=== PATIENT | male | born 1980 | race Caucasian/White ===

== ENCOUNTER 2017-11-04 18:56 | Emergency (ER) | payer SELFPAY ==
[2017-11-04 19:00] VITALS: BP 129/89; PULSE 70; RESP 17; TEMP 37.2; O2SAT 100; BMI 25.0
--- NOTE | 2017-11-04 19:11 | RAD_ITS ---
STUDY: X-RAY CHEST REASON FOR EXAM: Male, 37 years old. Chest pain x3 days TECHNIQUE: Single AP portable view of the chest. COMPARISON: Prior study of 12/31/2016 FINDINGS: hospital monitor leads are present. The lungs are clear and expanded. There is no demonstrated pleural abnormality. The heart size is normal. Status post sternotomy changes are present. Normal mediastinum and harry. Normal visualized pulmonary arteries. Normal visualized aortic arch and descending thoracic aorta. Normal visualized thoracic spine. Normal visualized ribs, clavicles, and shoulders. There is no demonstrated abnormality of the visualized soft tissue structures of the upper abdomen. RAD/Chest 1 View (Portable) IMPRESSION: Status post sternotomy. No acute cardiopulmonary disease process is seen. Chest findings are stable in the interval. Electronically Signed: Rajeev Pennington MD at 19:45 EDT , Service support ,
--- NOTE | 2017-11-04 19:12 | EKG12_ITS ---
Test Reason : CP Blood Pressure : / mmHG Vent. Rate : 066 BPM Atrial Rate : 066 BPM P-R Int : 146 ms QRS Dur : 062 ms QT Int : 388 ms P-R-T Axes : 063 069 079 degrees QTc Int : 406 ms Normal sinus rhythm Septal infarct , age undetermined Abnormal ECG Confirmed by OMAR CASAS, CHERRI ([id number]), industrial editor KWABENA ZELAYA ([id number]) on 11/06/2017 2:36:10 PM Referred By: CECILIA Confirmed By:CHERRI NELSON MD
[2017-11-04] MEDS: Aspirin 81 MG TAB.CHEW 324 MG PO (19:18)
[2017-11-04 19:21] VITALS: BP 144/90; PULSE 67
[2017-11-04] MEDS: 0.9% Normal Saline 1,000 ML 150 ML IV (19:22)
[2017-11-04 19:27] VITALS: BP 142/73; PULSE 75
[2017-11-04 19:34] VITALS: BP 135/72; PULSE 82
[2017-11-04 19:38] LABS: Absolute Lymphocyte Count 4.31 X10^3/ul (0.83-4.51); Basophil# 0.03 X10^3/uL; Basophil% 0.3 % (0-1); Eosinophils% 1.8 % (0-5); Hematocrit 44.5 % (40-54); Hemoglobin 15.5 g/dl (13.0-16.5); Lymphocyte # 4.31 X10^3/ul (4.0); Lymphocyte % 38.2 % (19-41); Mean Corp Hgb Conc 34.8 g/gl (32-36); Mean Corpuscular Hgb 32.5 pg (27.0-32.0); Mean Corpuscular Volume 93.3 fL (80-94); Mean Platelet Vol. 9.9 fl (6.2-12.0); Monocyte# 0.73 X10^3/uL; Monocyte% 6.5 % (0-10); Neutrophil # 5.99 X10^3/uL (2.7-7.7); Platelet Count 237 K/mm3 (150-450); RBC Distribution Width CV 12.6 % (11.6-14.6); RBC Distribution Width SD 42.7 fl (35.1-43.9); Red Blood Count 4.77 M/mm3 (4.6-6.2); White Blood Count 11.3 K/mm3 (4.4-11.0)
[2017-11-04 19:40] LABS: POSITIVE COUNT NO; POSITIVE DIFFERENTIAL NO; POSITIVE MORPHOLOGY NO
[2017-11-04 19:41] LABS: Anion Gap 5 (5-15); BUN 16 mg/dL (7-18); BUN/Creat Ratio 15.4 RATIO (10-20); Calcium,Total 8.6 mg/dL (8.5-10.1); Chloride 105 mmol/L (98-107); Creatinine, Serum 1.04 mg/dL (0.70-1.30); EST Glomerular Filtration Rate 86 mL/min (>60); Est Glom Filt Rate - Afr Amer 104 mL/min (>60); Estimated Creatinine Clearance 86.24 ml/min; Glucose 84 mg/dL (74-106); Potassium 4.2 mmol/L (3.5-5.1); Sodium Level 138 mmol/L (136-145)
[2017-11-04] MEDS: Morphine 4 MG/ML Syringe IV (19:41)
[2017-11-04 20:07] VITALS: BP 113/76; PULSE 69; RESP 16; O2SAT 98
[2017-11-04 20:56] LABS: D-Dimer Quantitative (DVT/PE) < 0.27 FEU/ug/m (0.27-0.49)
--- NOTE | 2017-11-04 21:11 | PCM.HP.STD ---
Problem List (1) Chest pain Status: Acute Qualifiers: Chest pain type: unspecified Qualified Code(s): R07.9 - Chest pain, unspecified (2) HTN (hypertension) Status: Chronic Qualifiers: Hypertension type: essential hypertension Qualified Code(s): I10 - Essential (primary) hypertension (3) HLD (hyperlipidemia) Status: Chronic Qualifiers: Hyperlipidemia type: unspecified Qualified Code(s): E78.5 - Hyperlipidemia, unspecified (4) Polysubstance abuse Status: Chronic Comment: drug screen 08/08 + for benzo's, Meth and cocaine. 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 transplanted heart: unspecified whether [place] or transplanted heart Associated angina: angina presence unspecified Qualified Code(s): I25.10 - Atherosclerotic heart disease of [place] coronary artery without angina pectoris (8) Non-STEMI (non-ST elevated myocardial infarction) Status: Chronic History of Present Illness Date of Admission: 11/04/17 Chief Complaint: Chest pain The patient is a 37 y/o M w/ PMHx: Tobacco use, History of Polysubstance abuse, HTN, HLD, CAD s/p CABG, Hx NSTEMI w/ most recent cardiac catheterization 08/10/2016 noted to demonstrate no obstructive lesions w/ + UDS cocaine at that time and eventual resumption medications who presents to the [facility] ED on 11/04/17 with history of In the ED work-up included T 99, heart rate 67, BP 144/90, respiratory rate 17, 100% room air, CBC with WBC 11.3, hemoglobin 15.5, platelet 237 without shift, d-dimer less than 0.27, BMP unremarkable, troponin less than 0.015, EKG with____, CXR w/ no acute cardiopulmonary process noted with stable chest findings status post sternotomy. The ED patient ministered aspirin, morphine, nitroglycerin, normal saline. Hospitalist addition of urine drug screen request given prior history of polysubstance abuse. CAD: s/p NSTEMI, CABG, will restart home regimen asa, statin (atorvastatin 40 mg), BB (metoprolol succ 25 mg daily). Hypertension: Restart home regimen lisinopril (2.5 mg daily), metoprolol succ (25 mg po daily) if UDS with + cocaine and if notable then restart in 24-48 hours. Hyperlipidemia: We will restart home statin regimen, FLP in AM. Tobacco Abuse: Encouraged cessation, inpatient consultation per RT, NR if desired. Hx Polysubstance abuse: Noted prior usage including cocaine and methamphetamine, 08/2016 evaluation for chest pain w/ + UDS at that time, UDS requested. DVT Prophylaxis: SCDs, lovenox. Past Medical History Past Medical History (Chronic Problems): Chronic Problems HTN (hypertension) (Chronic) HLD (hyperlipidemia) (Chronic) Polysubstance abuse (Chronic) drug screen 08/08 + for benzo's, Meth and cocaine. 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 Tobacco Use: Cigarettes Alcohol: Occasional Drugs: - - Denies any recent heroin use but has used in the past, Marijuana - *Family History Maternal History Items: No pertinent history Paternal History Items: No pertinent history Patient Problems: Active and Suspected Problems Chest pain (Acute) - Physical Exam Vital Signs Temp Pulse Resp BP Pulse Ox 99 F 69 16 113/76 98 11/04/17 19:00 11/04/17 20:07 11/04/17 20:07 11/04/17 20:07 11/04/17 20:07 Oxygen Flow Rate (L/min) 2 Oxygen Delivery Method Nasal Cannula Weight: 150 lb 2.157 oz Body Mass Index (BMI) 25.0 Laboratory Tests Past 24 Hrs 11/04/17 11/04/17 11/04/17 19:02 19:02 19:02 WBC 11.3 H RBC 4.77 Hgb 15.5 Hct 44.5 MCV 93.3 MCH 32.5 H MCHC 34.8 RDW 12.6 RDW Differential 42.7 Plt Count 237 MPV 9.9 Immature Gran % (Auto) 0.200 Neut % (Auto) 53.0 Lymph % (Auto) 38.2 [place] % (Auto) 6.5 Eos % (Auto) 1.8 Baso % (Auto) 0.3 Absolute Neuts (auto) 6.0 Absolute Lymphs (auto) 4.31 Total Counted Not Reportable D-Dimer Quant (PE/DVT) < 0.27 L Sodium 138 Potassium 4.2 Chloride 105 Carbon Dioxide 28.0 Anion Gap 5 BUN 16 Creatinine 1.04 Estim Creat Clear Calc 86.24 Est GFR (MDRD) Af Amer 104 Est GFR (MDRD) Non-Af 86 BUN/Creatinine Ratio 15.4 Glucose 84 Calcium 8.6 Troponin I < 0.015 Assessment/Plan All Active Problems Chest pain (Acute) Abnormal LFTs (Acute)
--- NOTE | 2017-11-04 21:13 | ED.VISSUMM ---
- ER Visit Summary Date of Service: 11/04/17 Chief Complaint: [Chest pain] History of Present Illness: The patient is a 37 M [the emergency department with complaint of chest pain times 3 days. Patient states the pain initially was intermittent but now continuous over the last 24 hours. Patient rates it currently as 7 or 8 out of 10. Patient describes the pain is in the center of his chest kind of dull and achy radiating into his left shoulder at times. Patient also states that radiates into the right arm at times. Patient has had similar pain in the past and he has had a one-vessel bypass surgery in 2008. Patient also states that last year he had a small heart attack. 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 Cranial nerves II through XII grossly intact. TMs clear. Mucous membranes moist. No adenopathy. Cardiovascular-regular rate and rhythm without murmur or ectopy Lungs-clear to auscultation, chest wall stable without crepitus or subcu emphysema Abdomen-normoactive bowel sounds, soft, nontender, no rebound or rigidity, no peritoneal signs. Extremities-intact ?4, normal range of motion, normal pulses, atraumatic] Test Results: EKG obtained on arrival showed a sinus rhythm with a ventricular rate of 68 bpm with no acute ST segment changes. CBC with differential was normal. Chemistries were normal. Troponin was less than 0.015. D-dimer was normal less than 0.27. Chest x-ray was normal. [] Emergency Department Course and Treatment: [Patient did receive nitro in the emergency department as well as aspirin. Patient did not have any relief with nitro and therefore was given 4 mg of morphine IV.] Treatment Plan: [I recommended admission for further workup and evaluation of his chest pains especially given his history. Patient however is refusing and wishes to sign out AGAINST MEDICAL ADVICE. Patient understands my concern that I do not have a clear etiology of his chest pain and given his history wanted to do more testing such as possibly stress testing and repeat cardiac enzymes. Patient understands that one set of heart enzymes and an EKG in the emergency department does not rule out coronary artery disease as the etiology of his pain. Since is with him she also understands and she told him to do whatever he wants.] Disposition: [Signed out AGAINST MEDICAL ADVICE] Impression: [Chest pain-rule out acute coronary syndrome] This note was generated with Prezto dictation software. It may contain incorrect words, spelling, and punctuation that were not noted in review of the chart prior to signing ED Disposition - Plan for ED Patient: Chief Complaint: Chest Pain Referrals: Natalia Xiao MD [Primary Care Provider] -
--- NOTE | 2017-11-04 21:16 | ED.DCSUM_ITS ---
- ER Visit Summary Date of Service: 11/04/17 Chief Complaint: [Chest pain] History of Present Illness: The patient is a 37 M [the emergency department with complaint of chest pain times 3 days. Patient states the pain initially was intermittent but now continuous over the last 24 hours. Patient rates it c urrently as 7 or 8 out of 10. Patient describes the pain is in the center of his chest kind of dull and achy radiating into his left shoulder at times. Patient also states that radiates into the right arm at times. Patient has had similar pain in the past and he has had a one-vessel bypass surgery in 2008. Patient also states that last year he had a small heart attack. 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 Saenz.] Physical Examination: [HEENT-PERRLA, EOMI. Cranial nerves II through XII grossly intact. TMs clear. Mucous membranes moist. No adenopathy. Cardiovascular-regular rate and rhythm without murmur or ectopy Lungs-clear to auscultation, chest wall stable without crepitus or subcu emphysema Abdomen-normoactive bowel sounds, soft, nontender, no rebound or rigidity, no peritoneal signs. Extremities-intact ?4, normal range of motion, normal pulses, atraumatic] Test Results: EKG obtained on arrival showed a sinus rhythm with a ventricular rate of 68 bpm with no acute ST segment changes. CBC with differential was normal. Chemistries were normal. Troponin was less than 0.015. D-dimer was normal less than 0.27. Chest x-ray was normal. [] Emergency Department Course and Treatment: [Patient did receive nitro in the emergency department as well as aspirin. Patient did not have any relief with nitro and therefore was given 4 mg of morphine IV.] Treatment Plan: [I recommended admission for further workup and evaluation of his chest pains especially given his history. Patient however is refusing and wishes to sign out AGAINST MEDICAL ADVICE. Patient understands my concern that I do not have a clear etiology of his chest pain and given his history wanted to do more testing such as possibly stress testing and repeat cardiac enzymes. Patient understands that one set of heart enzymes and an EKG in the emergency department does not rule out coronary artery disease as the etiology of his pain. Since is with him she also understands and she told him to do whatever he wants.] Disposition: [Signed out AGAINST MEDICAL ADVICE] Impression: [Chest pain-rule out acute coronary syndrome] This note was generated with Vind[employer] dictation software. It may contain incorrect words, spelling, and punctuation that were not noted in review of the chart prior to signing ED Disposition - Plan for ED Patient: Chief Complaint: Chest Pain Referrals: Natalia Xiao MD [Primary Care Provider] -
--- NOTE | 2017-11-04 21:16 | ED.DEP ---
ED Disposition - Plan for ED Patient: Chief Complaint: Chest Pain Referrals: Natalia Xiao MD [Primary Care Provider] - Otf Saenz MD [STAFF PHYSICIAN] - As soon as possible Additional Instructions: The cause of your pain is unclear. Return for any worsening symptoms.
--- NOTE | 2017-11-04 21:19 | HP.PCM_ITS ---
Problem List (1) Chest pain Status: Acute Qualifiers: Chest pain type: unspecified Qualified Code(s): R07.9 - Chest pain, unspecified (2) HTN (hypertension) Status: Chronic Qualifiers: Hypertension type: essential hypertension Qualified Code(s): I10 - Essential (primary) hypertension (3) HLD (hyperlipidemia) Status: Chronic Qualifiers: Hyperlipidemia type: unspecified Qualified Code(s): E78.5 - Hyperlipidemia, unspecified (4) Polysubstance abuse Status: Chronic Comment: drug screen 08/08 + for benzo's, Meth and cocaine. 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 transplanted heart: unspecified whether [place] or transplanted heart Associated angina: angina presence unspecified Qualified Code(s): I25.10 - Atherosclerotic heart disease of [place] coronary artery without angina pectoris (8) Non-STEMI (non-ST elevated myocardial infarction) Status: Chronic History of Present Illness Date of Admission: 11/04/17 Chief Complaint: Chest pain The patient is a 37 y/o M w/ PMHx: Tobacco use, History of Polysubstance abuse, HTN, HLD, CAD s/p CABG, Hx NSTEMI w/ most recent cardiac catheterization 08/10/2016 noted to demonstrate no obstructive lesions w/ + UDS cocaine at that time and eventual resumption medications who presents to the [facility] ED on 11/04/17 with history of In the ED work-up included T 99, heart rate 67, BP 144/90, respiratory rate 17, 100% room air, CBC with WBC 11.3, hemoglobin 15.5, platelet 237 without shift, d-dimer less than 0.27, BMP unremarkable, troponin less than 0.015, EKG with____, CXR w/ no acute cardiopulmonary process noted with stable chest findings status post sternotomy. The ED patient ministered aspirin, morphine, nitroglycerin, normal saline. Hospitalist addition of urine drug screen request given prior history of polysubstance abuse. CAD: s/p NSTEMI, CABG, will restart home regimen asa, statin (atorvastatin 40 mg), BB (metoprolol succ 25 mg daily). Hypertension: Restart home regimen lisinopril (2.5 mg daily), metoprolol succ (25 mg po daily) if UDS with + cocaine and if notable then restart in 24-48 hours. Hyperlipidemia: We will restart home statin regimen, FLP in AM. Tobacco Abuse: Encouraged cessation, inpatient consultation per RT, NR if desired. Hx Polysubstance abuse: Noted prior usage including cocaine and methamphetamine, 08/2016 evaluation for chest pain w/ + UDS at that time, UDS requested. DVT Prophylaxis: SCDs, lovenox. Past Medical History Past Medical History (Chronic Problems): Chronic Problems HTN (hypertension) (Chronic) HLD (hyperlipidemia) (Chronic) Polysubstance abuse (Chronic) drug screen 08/08 + for benzo's, Meth and cocaine. 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 Tobacco Use: Cigarettes Alcohol: Occasional Drugs: - - Denies any recent heroin use but has used in the past, Marijuana - *Family History Maternal History Items: No pertinent history Paternal History Items: No pertinent history Patient Problems: Active and Suspected Problems Chest pain (Acute) - Physical Exam Vital Signs Temp Pulse Resp BP Pulse Ox 99 F 69 16 113/76 98 11/04/17 19:00 11/04/17 20:07 11/04/17 20:07 11/04/17 20:07 11/04/17 20:07 Oxygen Flow Rate (L/min) 2 Oxygen Delivery Method Nasal Cannula Weight: 150 lb 2.157 oz Body Mass Index (BMI) 25.0 Laboratory Tests Past 24 Hrs 11/04/17 11/04/17 11/04/17 19:02 19:02 19:02 WBC 11.3 H RBC 4.77 Hgb 15.5 Hct 44.5 MCV 93.3 MCH 32.5 H MCHC 34.8 RDW 12.6 RDW Differential 42.7 Plt Count 237 MPV 9.9 Immature Gran % (Auto) 0.200 Neut % (Auto) 53.0 Lymph % (Auto) 38.2 [place] % (Auto) 6.5 Eos % (Auto) 1.8 Baso % (Auto) 0.3 Absolute Neuts (auto) 6.0 Absolute Lymphs (auto) 4.31 Total Counted Not Reportable D-Dimer Quant (PE/DVT) < 0.27 L Sodium 138 Potassium 4.2 Chloride 105 Carbon Dioxide 28.0 Anion Gap 5 BUN 16 Creatinine 1.04 Estim Creat Clear Calc 86.24 Est GFR (MDRD) Af Amer 104 Est GFR (MDRD) Non-Af 86 BUN/Creatinine Ratio 15.4 Glucose 84 Calcium 8.6 Troponin I < 0.015 Assessment/Plan All Active Problems Chest pain (Acute) Abnormal LFTs (Acute)
--- NOTE | 2017-11-04 21:30 | ED.RN ---
PT SIGNING OUT AGAINST MEDICAL ADVICE. PT STATES HE IS FULLY AWARE OF RISKS WITH LEAVING INCLUDING . PT AWARE HE CAN COME BACK AT ANY TIME FOR ANY CONCERNS.
== END 2017-11-04 21:29 | disposition left against medical advice (07) ==
PROVIDERS: Emergency Provider Emergency Medicine; Family Provider Internal Medicine; PCP Internal Medicine
DX: R07.9 Chest pain, unspecified (principal); I25.10 Atherosclerotic heart disease of native coronary artery without angina pectoris; I25.2 Old myocardial infarction; I10 Essential (primary) hypertension; F12.90 Cannabis use, unspecified, uncomplicated; Z95.1 Presence of aortocoronary bypass graft; Z79.899 Other long term (current) drug therapy; Z72.0 Tobacco use; Z53.21 Procedure and treatment not carried out due to patient leaving prior to being seen by health care provider
CPT/HCPCS: 71045; 80048; 84484; 85025; 85379; 93005; 96361; 96374; 99283; J7030; A4216

== ENCOUNTER 2018-02-08 13:37 | Emergency (ER) | payer MEDICAID, SELFPAY ==
[2018-02-08 13:38] VITALS: BP 125/82; PULSE 82; RESP 17; TEMP 36.4; O2SAT 99; BMI 28.0
--- NOTE | 2018-02-08 13:47 | RAD_ITS ---
STUDY: X-RAY CHEST REASON FOR EXAM: Male, 37 years old. Chest pain. TECHNIQUE: Single AP portable view of the chest. COMPARISON: Comparison is made with prior study dated November 04, 2017. FINDINGS: EKG electrodes are seen. The lungs are clear and expanded. There is no demonstrated pleural abnormality. Sternal cerclage wires are present from a prior sternotomy. Normal mediastinum and harry. Normal visualized pulmonary arteries. Normal visualized aortic arch and descending thoracic aorta. Normal visualized thoracic spine. Normal visualized ribs, clavicles, and shoulders. There is no demonstrated abnormality of the visualized soft tissue structures of the upper abdomen. RAD/Chest 1 View (Portable) IMPRESSION: Normal x-ray examination of the chest. Prior midline sternotomy. Electronically Signed: Andrez Shipley MD at 14:17 EST Tel [phone], Service support ,
--- NOTE | 2018-02-08 13:47 | EKG12_ITS ---
Test Reason : CP Blood Pressure : / mmHG Vent. Rate : 078 BPM Atrial Rate : 078 BPM P-R Int : 138 ms QRS Dur : 072 ms QT Int : 368 ms P-R-T Axes : 066 078 061 degrees QTc Int : 419 ms Normal sinus rhythm Normal ECG Confirmed by OMAR CASAS, CHERRI ([id number]), fan mail editor KWABENA ZELAYA ([id number]) on 02/12/2018 8:47:20 AM Referred By: CHRISSIE Confirmed By:CHERRI NELSON MD
[2018-02-08 13:48] VITALS: O2SAT 100
[2018-02-08] MEDS: Ondansetron 4 MG/2 ML Vial IV (13:54)
[2018-02-08] MEDS: Morphine 4 MG/ML Syringe IV (13:54)
[2018-02-08] MEDS: Aspirin 81 MG TAB.CHEW 324 MG PO (13:54)
[2018-02-08] MEDS: 0.9% Normal Saline 1,000 ML 150 ML IV (13:54)
[2018-02-08 13:59] LABS: Absolute Lymphocyte Count 2.91 X10^3/ul (0.83-4.51); Absolute Neutrophil Count 5.6 X10^3/uL (2.0-7.7); Basophil# 0.03 X10^3/uL; Basophil% 0.3 % (0-1); Eosinophil# 0.08 X10^3/uL; Eosinophils% 0.9 % (0-5); Hemoglobin 16.7 g/dl (13.0-16.5); Lymphocyte # 2.91 X10^3/ul (4.0); Lymphocyte % 32.5 % (19-41); Mean Corp Hgb Conc 34.8 g/gl (32-36); Mean Corpuscular Hgb 31.8 pg (27.0-32.0); Mean Corpuscular Volume 91.4 fL (80-94); Mean Platelet Vol. 9.7 fl (6.2-12.0); Monocyte# 0.35 X10^3/uL; Monocyte% 3.9 % (0-10); Neutrophil # 5.56 X10^3/uL (2.7-7.7); Neutrophil % 62.2 % (47-70); POSITIVE COUNT NO; POSITIVE DIFFERENTIAL NO; POSITIVE MORPHOLOGY NO; Platelet Count 246 K/mm3 (150-450); RBC Distribution Width CV 12.6 % (11.6-14.6); RBC Distribution Width SD 42.2 fl (35.1-43.9); Red Blood Count 5.25 M/mm3 (4.6-6.2)
[2018-02-08 14:09] LABS: Anion Gap 11 (5-15); BUN 11 mg/dL (7-18); BUN/Creat Ratio 11.1 RATIO (10-20); Calcium,Total 8.8 mg/dL (8.5-10.1); Chloride 102 mmol/L (98-107); Creatinine, Serum 0.99 mg/dL (0.70-1.30); EST Glomerular Filtration Rate 91 mL/min (>60); Est Glom Filt Rate - Afr Amer 110 mL/min (>60); Estimated Creatinine Clearance 90.59 ml/min; Glucose 134 mg/dL (74-106); Potassium 3.8 mmol/L (3.5-5.1); Sodium Level 138 mmol/L (136-145)
[2018-02-08] MEDS: Ketorolac 30 MG/ML Syringe IV (14:23)
[2018-02-08 14:25] VITALS: BP 137/90; PULSE 73; RESP 16; O2SAT 98
[2018-02-08 14:44] VITALS: BP 129/88; PULSE 77
[2018-02-08 15:19] VITALS: BP 120/77; PULSE 72; RESP 16; O2SAT 99
--- NOTE | 2018-02-08 15:30 | ED.DCSUM_ITS ---
- ER Visit Summary Date of Service: 02/08/18 Chief Complaint: Chest pain History of Present Illness: The patient is a [address] Saenz and Dr. Cervantes. He reports that 3 hours ago he had the onset of left-sided chest pain while cleaning up [employer] decorations. He reports this was light activity. Sick continuous sharp pain that waxes and wanes. Is 10 at 10 at worst and 9 out of 10 currently. Is worsened by movement of his left arm or torso. Is relieved by remaining still. He reports that he took 2 nitroglycerin with slight relief. States he has had nausea, but no vomiting. Has had dyspnea and diaphoresis with this. Patient reports that he has a history of a 1 vessel CABG in 2008. Last heart catheterization was in 2016. He denies any chest pain or change in dyspnea exertion in the past month. Physical Examination: Vitals: Stable. Afebrile. General: Well-nourished and well-developed. Head: Normocephalic atraumatic. Neck: Supple, no lymphadenopathy. No JVD. Nontender. Cardiovascular: Regular rate and rhythm. No murmurs. Respiratory: No respiratory distress. Clear to auscultation bilaterally. Moderate tenderness palpation over the left side of his chest that does reproduce his pain. Abdominal: Soft, nontender, nondistended, normal bowel sounds. No guarding, rebound, or peritoneal signs. Back: Nontender. Extremities: Moderate tenderness palpation over the left AC joint with an obvious separation. Neurovascularly intact distally. Skin: Normal color, no rash. Neurologic: Alert and oriented ?3. Cranial nerves II through XII are intact. Normal strength and sensation. Psych: Normal affect. Test Results: EKG is sinus at 78 and unchanged from October 2017. Troponin is negative. Chem-7 more for glucose 134. CBC is more for hemoglobin 16.7. Chest x-ray shows no acute disease and sternotomy wires. He does have a complete left AC joint separation. Emergency Department Course and Treatment: Patient was initially treated with a dose of morphine IV. He continued to complain of pain was given Toradol IV. I had a prolonged discussion with him about his left shoulder. He reports that this was from an accident 4 years ago. He does question whether this may be the source of his pain. Treatment Plan: Patient's pain was greater than 3 hours prior to arrival to the emergency department. He is refused to stay for a second troponin. Clinically I think that this is musculoskeletal pain. As he is not staying for the second troponin he will be signed out AGAINST MEDICAL ADVICE. He will be discharged instructions to follow-up with his primary care physician as soon as possible. He has also asked for referral to orthopedic surgeon and is given the name of Dr. Dontrell Barr is data control clerk supervisor. He will be placed on naproxen at home. He is asked for a refill of his nitroglycerin. This was prescribed as well. Disposition: Left AGAINST MEDICAL ADVICE. Impression: 1. Atypical chest pain. 2. Left AC joint separation, chronic. 3. Left AGAINST MEDICAL ADVICE. This note was generated with LIA dictation software. It may contain incorrect words, spelling, and punctuation that were not noted in review of the chart prior to signing ED Disposition - Plan for ED Patient: Disposition: Home or Assisted Living Chief Complaint: Chest Pain Instructions: ED Chest Pain Atypical Unkn Cause Prescriptions: Naproxen [Naprosyn] 500 mg PO BID PRN #20 tablet Nitroglycerin [Nitrostat] 0.4 mg SL PRN PRN #30 tab.subl PRN Reason: Cardiac/Chest Pain Referrals: Otf Saenz MD [STAFF PHYSICIAN] - As soon as possible Natalia Xiao MD [Primary Care Provider] - As soon as possible Dontrell Barr MD [STAFF PHYSICIAN] - 1-2 Weeks
[2018-02-08 15:42] VITALS: BP 120/77; PULSE 65; RESP 15; O2SAT 97
== END 2018-02-08 15:43 | disposition home or self-care (01) ==
PROVIDERS: Emergency Provider Emergency Medicine; Family Provider Internal Medicine; PCP Internal Medicine
DX: R07.89 Other chest pain (principal); M24.412 Recurrent dislocation, left shoulder; Z53.21 Procedure and treatment not carried out due to patient leaving prior to being seen by health care provider; I25.10 Atherosclerotic heart disease of native coronary artery without angina pectoris; I10 Essential (primary) hypertension; J44.9 Chronic obstructive pulmonary disease, unspecified; Z95.1 Presence of aortocoronary bypass graft; F14.11 Cocaine abuse, in remission; F15.21 Other stimulant dependence, in remission; Z72.0 Tobacco use
CPT/HCPCS: 71045; 80048; 84484; 85025; 93005; 96361; 96374; 96375; 99285; J7030; A4216; J2405

== ENCOUNTER 2018-09-24 08:57 | Emergency (ER) | payer MEDICAID, SELFPAY ==
[2018-09-24 08:58] VITALS: BP 127/72; PULSE 85; RESP 17; TEMP 36.1; O2SAT 98; BMI 30.4
--- NOTE | 2018-09-24 09:12 | US_ITS ---
STUDY: SCROTUM ULTRASOUND REASON FOR EXAM: Male, 38 years old. Left-sided pain TECHNIQUE: Ultrasound evaluation of the scrotum was performed with color Doppler and static christianson-scale imaging. COMPARISON: None. FINDINGS: RIGHT TESTICLE INTRATESTICULAR: There is a normal size of the right testicle. The right testicle measures 4.3 x 2.4 x 1.8 cm. There is a homogenous echotexture. There is normal arterial and normal venous vascularity. There is no demonstrated right testicular mass or cyst. EXTRATESTICULAR: The epididymis is normal in size. The epididymis head measures 1.0 cm. There is normal vascularity of the epididymis. There is no demonstrated epididymal cystic structure. There is no demonstrated hydrocele. There is no demonstrated varicocele. There is no demonstrated extratesticular mass or cyst. LEFT TESTICLE INTRATESTICULAR: There is a normal size of the left testicle. The left testicle measures 3.8 x 2.6 x 2.2 cm. There is a homogenous echotexture. There is normal arterial and normal venous vascularity. There is no demonstrated left testicular mass or cyst. There is appendix testes noted measuring 3 x 4 x 4 mm. EXTRATESTICULAR: The epididymis is normal in size. The epididymis head measures 1.6 cm. There is normal vascularity of the epididymis. There is no demonstrated epididymal cystic structure. There is a small hydrocele. There are prominent extratesticular veins consistent with a varicocele. There is no demonstrated extratesticular mass or cyst. US/Testicular with Arterial Flow IMPRESSION: Normal bilateral testicles, no sonographic evidence of suspicious solid mass or torsion. Small left hydrocele and varicocele Left appendix teste Electronically Signed: Vicente Castaneda MD at 10:42 EDT , Service support ,
--- NOTE | 2018-09-24 09:13 | ED.VISSUMM ---
- ER Visit Summary Date of Service: 09/24/18 Chief Complaint: Left testicular pain History of Present Illness: The patient is a 38 M who presents with left testicular pain that began last night. Patient states the pain began rather suddenly. Patient describes pain as sharp, throbbing, and stabbing. Patient states the pain is localized to the left testicle and left inguinal area. Patient states the pain is worse with movement and ambulation. Patient states the pain improves with rest. Patient denies any dysuria or hematuria. Patient denies any nausea or vomiting. Patient states he was doing some lifting yesterday and is concerned over possible hernia. Patient also reports that he had a history of an infection in his testicle in the past. Physical Examination: Vital signs are stable. Patient is afebrile. Patient is in no acute distress. Oral mucosa is pink and moist. Neck is supple. Trachea is midline. There is no JVD noted. Heart was regular rate and rhythm. Lungs are clear and equal bilateral. Abdomen is soft. Bowel sounds are normal. There is no tenderness. There is no guarding noted. exam reveals tenderness over the left testicle and left inguinal canal. There are no masses palpated. Testicle has a vertical lie with the epididymis posterior. Skin is warm dry. Cranial nerves II through XII are intact. There are no focal motor or sensory deficits noted. Test Results: CBC showed slight leukocytosis of 12.3. Basic metabolic profile was essentially within normal limits. Urinalysis was normal. Testicular ultrasound was obtained. There is no evidence of torsion. There is a small left hydrocele and varicocele. Patient was still complaining of pain. CT scan of the abdomen and pelvis was then obtained. There is no acute intra-abdominal process noted. Emergency Department Course and Treatment: Patient was given IV fluids and morphine here. Patient was advised to have his lab, ultrasound, and CT results. Patient was instructed to wear tighter fitting underwear for the next few days. Patient was in a prescription for Naprosyn. Patient was instructed to follow-up with his primary care physician in 5 to 7 days. Patient understood and was agreeable with the plan. All questions were answered. Disposition: Discharge home Impression: 1. Left inguinal pain This note was generated with [employer] dictation software. It may contain incorrect words, spelling, and punctuation that were not noted in review of the chart prior to signing ED Disposition - Plan for ED Patient: Disposition: Home or Assisted Living Diagnosis: Left inguinal pain Instructions: HYDROCELE, Type Not Specified Prescriptions: Naproxen [Naprosyn] 500 mg PO BID PRN #20 tab Prescription Printed Referrals: Natalia Xiao MD [Primary Care Provider] - 3-5 Days
[2018-09-24 09:28] LABS: Absolute Lymphocyte Count 2.64 X10^3/uL (0.83-4.51); Absolute Neutrophil Count 8.4 X10^3/uL (2.0-7.7); Basophil# 0.05 X10^3/uL; Basophil% 0.4 % (0-1); Eosinophil# 0.15 X10^3/uL; Eosinophils% 1.2 % (0-5); Hematocrit 45.1 % (40-54); Hemoglobin 15.8 g/dL (13.0-16.5); Lymphocyte # 2.64 X10^3/ul (4.0); Lymphocyte % 21.4 % (19-41); Mean Corpuscular Volume 91.5 fL (80-94); Mean Platelet Vol. 9.5 fl (6.2-12.0); Monocyte# 0.97 X10^3/uL; Monocyte% 7.9 % (0-10); NRBC Flagged by Analyzer 0 % (0-5); Neutrophil # 8.42 X10^3/uL (2.7-7.7); Neutrophil % 68.4 % (47-70); Platelet Count 232 K/mm3 (150-450); RBC Distribution Width CV 12.1 % (11.6-14.6); RBC Distribution Width SD 40.7 fl (35.1-43.9); Red Blood Count 4.93 M/mm3 (4.6-6.2); White Blood Count 12.3 K/mm3 (4.4-11.0)
[2018-09-24 09:39] LABS: Anion Gap 3 (5-15); BUN 12 mg/dL (7-18); BUN/Creat Ratio 11.9 RATIO (10-20); Calcium,Total 8.6 mg/dL (8.5-10.1); Chloride 105 mmol/L (98-107); Creatinine, Serum 1.01 mg/dL (0.70-1.30); EST Glomerular Filtration Rate 89 mL/min (>60); Est Glom Filt Rate - Afr Amer 107 mL/min (>60); Estimated Creatinine Clearance 87.95 ml/min; Glucose 109 mg/dL (74-106); Potassium 3.9 mmol/L (3.5-5.1); Sodium Level 136 mmol/L (136-145)
[2018-09-24] MEDS: Morphine 4 MG/ML Syringe IV ×2 (09:42→10:32)
[2018-09-24] MEDS: 0.9% Normal Saline 1,000 ML 1000 ML IV (09:43)
[2018-09-24 10:29] LABS: Bacteria 0 SEEN /hpf (None Seen); Mucous, Urine 0 SEEN /hpf (<or=2+); Red Blood Cells-Urine 0 SEEN /hpf (0-5); White Blood Cells 0 SEEN /hpf (0-5)
[2018-09-24 10:41] LABS: Color, Urine Yellow (Yellow); Glucose, Dipstick Normal (Normal); Ketone-Dipstick Negative (Negative); Leukocyte Esterase-Dipstick Negative /ul (Negative); Nitrite-Dipstick Negative (Negative); Occult Blood-Urine Negative /ul (Negative); Protein-Dipstick Negative (Negative); Urine Bilirubin Dipstick Negative (Negative); Urine Clarity Sl. Cloudy (Clear); Urine Urobilinogen Normal (Normal); Urine pH 6.5 (5.0 - 8.0)
[2018-09-24 10:49] LABS: Squamous Epithelial Cells - UA 0-5 SEEN /hpf (0-5)
--- NOTE | 2018-09-24 11:23 | CT_ITS ---
STUDY: CT ABDOMEN AND PELVIS WITHOUT CONTRAST REASON FOR EXAM: Male, 38 years old. Diffuse abdominal pain, nausea RADIATION DOSAGE (If Supplied By Facility): CTDIvol = ( 7.17 ) mGy, DLP = ( 415.54 ) mGycm TECHNIQUE: Transaxial images were obtained from the dome of the diaphragm to the symphysis pubis without oral contrast, and without intravenous contrast. Sagittal and coronal images were reconstructed. Individualized dose optimization techniques were used for this CT. COMPARISON: None. FINDINGS: The visualized lung bases are unremarkable. The visualized portions of the heart are within normal limits. Normal liver. Normal gallbladder and extrahepatic biliary system. Normal spleen. Normal pancreas. Normal bilateral adrenal glands. Normal right kidney. Normal left kidney. Normal visualized stomach. Normal small intestine. Retained stool noted in the colon. The appendix is visualized and appears normal. Appendix best seen on coronal recon images 36 through 39 Normal abdominal aorta. Normal inferior vena cava. Normal retroperitoneum. Normal urinary bladder. Normal abdominal wall. Normal osseous structures. CT/Abdomen/Pelvis without Cont IMPRESSION: No suspicious solid organ abnormality No CT evidence of an acute inflammatory process, normal appendix visualized. No free intraperitoneal fluid, air, or suspicious adenopathy Electronically Signed: Vicente Castaneda MD at 11:57 EDT , Service support ,
[2018-09-24 12:57] VITALS: BP 136/91; PULSE 72; RESP 17; O2SAT 96
--- NOTE | 2018-09-24 12:58 | ED.RN ---
IV DC'ED, CATHETER INTACT, SMALL GAUZE DRESSING PLACED. DISCHARGE INSTRUCTIONS GIVEN TO AND REVIEWED WITH PATIENT, PATIENT DENIES QUESTIONS OR CONCERNS AND VOICES UNDERSTANDING OF DISCHARGE INSTRUCTIONS. PT AMBULATES OUT OF ROOM WITHOUT DIFFICULTY.
== END 2018-09-24 12:58 | disposition home or self-care (01) ==
PROVIDERS: Emergency Provider Emergency Medicine; Family Provider Internal Medicine; PCP Internal Medicine
DX: N43.3 Hydrocele, unspecified (principal); I86.1 Scrotal varices; R10.32 Left lower quadrant pain; Z72.0 Tobacco use
CPT/HCPCS: 74176; 76870; 80048; 81001; 85025; 93976; 96361; 96374; 96376; 99283; J7030

== ENCOUNTER 2018-09-26 11:18 | Emergency (ER) | payer MEDICAID, SELFPAY ==
[2018-09-26 11:19] VITALS: BP 130/108; PULSE 89; RESP 18; TEMP 36.2; O2SAT 99; BMI 28.4
--- NOTE | 2018-09-26 11:42 | US_ITS ---
STUDY: SCROTUM ULTRASOUND REASON FOR EXAM: Male, 38 years old. Testicular pain, left, swelling and redness TECHNIQUE: Ultrasound evaluation of the scrotum was performed with color Doppler and static christianson-scale imaging. COMPARISON: None. FINDINGS: RIGHT TESTICLE Right testis 43 x 23 x 22 mm, homogeneous and normal echotexture, normal vascularity. Right epididymal head 9 x 12 x 6 mm, minimal hydrocele, normal epididymal echotexture and vascularity, no varicocele. LEFT TESTICLE Left testis 37 x 27 x 24 mm, homogeneous and normal echotexture, mildly increased vascularity. No mass. Left epididymal head 9 x 10 x 10 mm. Epididymal body enlarged, hyperemic. Large echolucent hydrocele with minimal slender septation. No varicocele. US/Testicular with Arterial Flow IMPRESSION: Left epididymoorchitis. Electronically Signed: Miguel Osorio MD at 13:37 EDT Tel , Service support ,
--- NOTE | 2018-09-26 11:43 | ED.DCSUM_ITS ---
- ER Visit Summary Date of Service: 09/26/18 Chief Complaint: Left testicular pain History of Present Illness: The patient is a 38 M who presents with left testicular pain that became worse today. Patient was seen here 2 days ago and had an ultrasound and CT scan done at that time which were normal. Patient followed up with his primary care physician today and his pain was much worse today. Patient was referred back to the emergency department. Patient denies any dysuria or hematuria. Patient admits to some lower abdominal pain. Patient states the pain is worse over the left testicle. Patient denies any fevers or chills. Physical Examination: Vital signs are stable except for slightly elevated blood pressure 130/108. Patient is afebrile. Patient is in no acute distress. Oral mucosa is pink and moist. Neck is supple. Trachea is midline. There is no JVD noted. Heart was regular rate and rhythm. Lungs are clear and equal bilaterally. Abdomen is soft. Bowel sounds are normal. There is lower abdominal tenderness. There is no rebound or guarding noted. exam revealed tenderness and edema of the left testicle. There are no masses palpated. There is a vertical lie. Test Results: CBC showed a mild leukocytosis of 13.8. Basic metabolic profile is normal. States her ultrasound showed evidence of left epididymoorchitis. Emergency Department Course and Treatment: Patient was given IV fluids and morphine here. Patient was having worsening pain after his ultrasound. Patient given a dose of Dilaudid here. Patient was feeling better after this. Patient stated pain was starting to come back. Patient given a repeat dose of Dilaudid. Patient was given Rocephin and Zithromax here. Patient was given a prescription for Levaquin. Patient was instructed to follow-up with his primary care physician in 5 to 7 days. Patient was also given urology follow-up. Patient understood and was agreeable with the plan. All questions were answered. Disposition: Discharge home Impression: Left epididymoorchitis This note was generated with [employer] dictation software. It may contain incorrect words, spelling, and punctuation that were not noted in review of the chart prior to signing ED Disposition - Plan for ED Patient: Disposition: Home or Assisted Living Diagnosis: Epididymo-orchitis without abscess Instructions: Epididymitis Prescriptions: levoFLOXacin tablet [Levaquin] 500 mg PO DAILY #7 tab Prescription Printed Referrals: Natalia Xiao MD [Primary Care Provider] - 5-7 Days Santino Pan MD [STAFF PHYSICIAN] - 5-7 Days
[2018-09-26] MEDS: 0.9% Normal Saline 1,000 ML 1000 ML IV (12:02)
[2018-09-26 12:03] LABS: Absolute Lymphocyte Count 2.05 X10^3/uL (0.83-4.51); Absolute Neutrophil Count 10.4 X10^3/uL (2.0-7.7); Basophil# 0.03 X10^3/uL; Basophil% 0.2 % (0-1); Eosinophil# 0.08 X10^3/uL; Eosinophils% 0.6 % (0-5); Hematocrit 42.7 % (40-54); Hemoglobin 14.8 g/dL (13.0-16.5); Lymphocyte # 2.05 X10^3/ul (4.0); Lymphocyte % 14.9 % (19-41); Mean Corp Hgb Conc 34.7 g/dL (32-36); Mean Corpuscular Hgb 31.8 pg (27.0-32.0); Mean Corpuscular Volume 91.6 fL (80-94); Mean Platelet Vol. 9.3 fl (6.2-12.0); Monocyte# 1.02 X10^3/uL; Monocyte% 7.4 % (0-10); NRBC Flagged by Analyzer 0 % (0-5); Neutrophil # 10.43 X10^3/uL (2.7-7.7); Neutrophil % 75.8 % (47-70); Platelet Count 211 K/mm3 (150-450); RBC Distribution Width CV 12.4 % (11.6-14.6); RBC Distribution Width SD 41.8 fl (35.1-43.9); Red Blood Count 4.66 M/mm3 (4.6-6.2); White Blood Count 13.8 K/mm3 (4.4-11.0)
[2018-09-26] MEDS: Morphine 4 MG/ML Syringe IV (12:03)
[2018-09-26] MEDS: Ondansetron 4 MG/2 ML Vial IV (12:03)
[2018-09-26 12:14] LABS: Anion Gap 2 (5-15); BUN 7 mg/dL (7-18); BUN/Creat Ratio 8.1 RATIO (10-20); Calcium,Total 8.4 mg/dL (8.5-10.1); Chloride 110 mmol/L (98-107); Creatinine, Serum 0.86 mg/dL (0.70-1.30); EST Glomerular Filtration Rate 106 mL/min (>60); Est Glom Filt Rate - Afr Amer 128 mL/min (>60); Estimated Creatinine Clearance 103.29 ml/min; Glucose 99 mg/dL (74-106); Sodium Level 140 mmol/L (136-145)
[2018-09-26 12:18] VITALS: RESP 14
[2018-09-26] MEDS: HYDROmorphone 1 MG/ML Syringe IV ×2 (12:58→15:09)
[2018-09-26 13:19] VITALS: RESP 12
[2018-09-26] MEDS: Azithromycin 250 MG Tablet 1000 MG PO (15:09)
[2018-09-26] MEDS: Ceftriaxone 500 MG Vial 250 MG IM (15:14)
[2018-09-26 15:26] VITALS: PULSE 79; RESP 12
== END 2018-09-26 15:26 | disposition home or self-care (01) ==
PROVIDERS: Emergency Provider Emergency Medicine; Family Provider Internal Medicine; PCP Internal Medicine
DX: N50.812 Left testicular pain (principal); N45.3 Epididymo-orchitis; Z72.0 Tobacco use; Z79.899 Other long term (current) drug therapy
CPT/HCPCS: 76870; 80048; 85025; 93976; 96361; 96372; 96374; 96375; 96376; 99284; A4216; J2405

== ENCOUNTER → 2018-10-29 10:53 | Outpatient (CLI) | payer MEDICAID, SELFPAY ==
[2018-10-29 09:59] VITALS: BMI 27.1
[2018-10-29 12:06] LABS: AST(SGOT) 84 U/L (15-37); Alanine Aminotransfer ALT/SGPT 166 U/L (16-61); Albumin, Serum 4.1 g/dL (3.2-5.0); Alkaline Phosphatase 61 U/L (45-117); Bilirubin, Direct 0.15 mg/dL (0.00-0.30); Cholesterol 202 mg/dL (200); Globulin 4.3 g/dL (2.2-4.2); High Density Lipoprotein 55 mg/dL; Protein, Total 8.4 g/dL (6.4-8.2); Triglycerides 79 mg/dL; Very Low Density Lipoprotein 16 mg/dL (5-40)
== END ==
PROVIDERS: Family Provider Internal Medicine; PCP Internal Medicine; Referring Provider Internal Medicine Cardiovascular Disease; Visit Provider Internal Medicine Cardiovascular Disease
DX: E78.5 Hyperlipidemia, unspecified (principal); I25.10 Atherosclerotic heart disease of native coronary artery without angina pectoris; I25.2 Old myocardial infarction
CPT/HCPCS: 36415; 80061; 80076

== ENCOUNTER → 2018-11-15 09:52 | Outpatient (CLI) | payer MEDICAID, SELFPAY ==
[2018-10-29 09:59] VITALS: BMI 27.1
--- NOTE | 2018-11-15 09:54 | ECHOCS_ITS ---
Reason For Study: CHEST PAIN Procedure This was a 2D Doppler, Color Flow transthoracic echocardiogram. Exam performed in department. Left Ventricle Normal size and thickness. The estimated ejection fraction is 60 %. Normal diastology for age. No regional wall motion abnormalities noted. Right Ventricle Normal size and thickness. Normal systolic function. Atria Normal left atrium. Normal right atrium. Normal atrial septum. Mitral Valve The mitral valve is structurally normal. No prolapse or stenosis seen. Tricuspid Valve Normal tricuspid valve. Trivial tricuspid valve insufficiency. Right ventricular systolic pressure estimated to be 19 mmHg. Aortic Valve Trisinus/trileaflet aortic valve. Pulmonic Valve Normal pulmonic valve. Great Vessels Normal aortic root. Normal arch. Normal inferior vena cava. Inferior vena cava collapse with sniff. Pericardium/Pleural No pericardial effusion. Medication 22 gauge I.V. with prn adaptor inserted into right arm. Diluted definity 3.0ml given slow IV push to enhance endocardial definition. MMode/2D Measurements & Calculations LVIDd: 4.7 cm IVSd: 0.84 cm Ao root diam: 2.7 cm LVIDs: 3.4 cm LVPWd: 0.85 cm RVDd: 3.2 cm FS: 28.8 % LAV(MOD-bp): 39.1 ml EDV(MOD-sp4): 118.2 ml EDV(MOD-sp2): 84.1 ml LAV(MOD-bp) Indexed: 21.4 ml/m2 ESV(MOD-sp4): 61.9 ml EF(MOD-sp2): 67.6 % LAV(MOD-sp2): 37.7 ml EF(MOD-sp4): 47.6 % LAV(MOD-sp4): 34.3 ml SV(MOD-sp4): 56.3 ml SV(MOD-sp2): 56.9 ml LA A4 area: 14.1 cm2 LA dimension(2D): 3.4 cm RA A4 area: 10.4 cm2 Time Measurements MV dec time: 0.30 sec Doppler Measurements & Calculations MV E max awais: 57.5 cm/sec Lat Peak E' Awais: 16.6 cm/sec Med Peak E' Awais: 7.9 cm/sec MV A max awais: 39.4 cm/sec E/E' lat: 3.5 E/E' med: 7.3 MV E/A: 1.5 Ao V2 max: 93.2 cm/sec LV V1 max: 81.1 cm/sec TR max awais: 185.7 cm/sec Ao max P.5 mmHg LV V1 max P.6 mmHg TR max P.8 mmHg Interpretation Summary The estimated ejection fraction is 60 %. Normal diastology for age. Trivial tricuspid valve insufficiency. Right ventricular systolic pressure estimated to be 19 mmHg. Compared to echo report dated 08/09/2016, LV function has remained the same, and RVSP has improved from 38 to 19 mm Hg. The study was technically difficult. Contrast injection was performed. Ordering Physician: Otf Saenz Referring Physician: EBONY DRUMMOND Performed By: Malaika Galloway, ROXANA, RVT
== END ==
PROVIDERS: Family Provider Internal Medicine; PCP Internal Medicine; Referring Provider Internal Medicine Cardiovascular Disease; Visit Provider Internal Medicine Cardiovascular Disease
DX: I25.10 Atherosclerotic heart disease of native coronary artery without angina pectoris (principal); I25.2 Old myocardial infarction; R07.9 Chest pain, unspecified; R06.09 Other forms of dyspnea; Z95.1 Presence of aortocoronary bypass graft
CPT/HCPCS: 93306; Q9957; A4216; C8929

== ENCOUNTER 2018-12-12 14:15 | Observation (INO) | payer MEDICAID, SELFPAY ==
[2018-10-29 09:59] VITALS: BMI 27.1
[2018-12-12] VITALS (7 sets, daily range): BP systolic 117–135; BP diastolic 63–84; PULSE 60–82; RESP 13–18; TEMP 36.4–36.8; O2SAT 95–99; BMI 27.9; BMI 28.0; BMI 29.0
--- NOTE | 2018-12-12 15:00 | EKG12_ITS ---
Test Reason : REPEAT Blood Pressure : / mmHG Vent. Rate : 074 BPM Atrial Rate : 074 BPM P-R Int : 140 ms QRS Dur : 078 ms QT Int : 396 ms P-R-T Axes : 069 071 061 degrees QTc Int : 439 ms Normal sinus rhythm Nonspecific T wave abnormality Abnormal ECG Confirmed by OMAR CASAS, CHERRI ([id number]), senior technical editor OMID MARIN ([id number]) on 12/17/2018 2:34:32 PM Referred By: Felipa Middleton Confirmed By:CHERRI NELSON MD
--- NOTE | 2018-12-12 15:00 | RAD_ITS ---
STUDY: X-RAY CHEST REASON FOR EXAM: Male, 38 years old. Sudden onset of chest pain. TECHNIQUE: Single AP portable view of the chest. COMPARISON: Comparison is made with prior study dated February 08, 2018. FINDINGS: EKG electrodes are seen. The lungs are clear and expanded. There is no demonstrated pleural abnormality. Sternal cerclage wires are present from a prior sternotomy. Normal mediastinum and harry. Normal visualized pulmonary arteries. Normal visualized aortic arch and descending thoracic aorta. Normal visualized thoracic spine. Normal visualized ribs, clavicles, and shoulders. There is no demonstrated abnormality of the visualized soft tissue structures of the upper abdomen. RAD/Chest 1 View (Portable) IMPRESSION: No acute abnormality is seen. Prior midline sternotomy. Electronically Signed: Andrez Shipley, at 15:17 EST , Service support ,
--- NOTE | 2018-12-12 15:01 | ED.VIS.GEN ---
History of Present Illness Chief Complaint: Chest Pain Informant: Patient Onset: Today Context: Sudden Onset Timing: Waxes and wanes Current Severity: Mild Maximum Severity: Moderate Narrative: Patient has a history of prior AR and single-vessel bypass surgery. He states he was at work today when he got sudden sharp pain in his chest that radiated up to his anterior neck. He states the pain now fluctuates between sharp and dull pain. He feels a heaviness over his chest. He did take for full size aspirin prior to arrival. He tried 3 nitroglycerin which he states dulled the pain slightly. Patient had previously been seen by Dr. Lindquist and is transitioning to care with Dr. Saenz. He had an echocardiogram done a few weeks ago that was unremarkable. Last heart cath was reportedly in 2017 and unremarkable. Past Medical History - Allergies and Home Meds Allergies/Adverse Reactions: Allergies No Known Allergies Allergy (Verified 12/12/18 14:21) Primary Care Physician: Natalia Xiao MD [Primary Care Provider] - Prior records reviewed: Yes Past Medical History: - - Reviewed Surgical History: noncontributory Lives: Spouse/ Significant Other Smoking Status: Current every day smoker - Family History Maternal Family History: Family History (Last Updated 10/29/18 @ 10:11 by Bushra Bernal) Father CAD (coronary artery disease) Hypertension Hyperlipidemia COPD (chronic obstructive pulmonary disease) Sudden cardiac Stented coronary artery S/P CABG x 3 Family History: Reports: No pertinent history Paternal Family History: Family History (Last Updated 10/29/18 @ 10:11 by Bushra Bernal) Father CAD (coronary artery disease) Hypertension Hyperlipidemia COPD (chronic obstructive pulmonary disease) Sudden cardiac Stented coronary artery S/P CABG x 3 Family History: Reports: No pertinent history Review of Systems General: Denies: Chills, Fever Eyes: Denies: Visual changes - bilaterally ENT: Reports: - - Anterior neck pain. Denies: Bilateral ear pain Cardiovascular: Reports: Chest pain Respiratory: Denies: Dyspnea Gastrointestinal: Denies: Abdominal pain, Nausea, Vomiting, Diarrhea Skin: Denies: Rash Neurological: Denies: Headache Hematologic: Denies: Easy bruising Allergy: Denies: Uticaria Physical Exam Vital Signs/Narrative: Vital Signs Temp Pulse Resp BP Pulse Ox 12/12/18 14:15 98.2 F 82 15 120/76 99 Inital Vital Signs reviewed: Yes General: Well nourished, Well developed Head: Normocephalic ENT: Moist mucous membranes Neck: Supple Cardiovascular: Regular rate, Regular rhythm Respiratory: No distress, Chest tenderness - Anterior chest wall tenderness. No crepitus. Abdomen: Soft, Tender - Epigastric tenderness palpation., Hypoactive bowel sounds. Negative for: Guarding, Rebound tenderness Back: Nontender Extremities: Nontender Skin: Normal color, No rash Neurological: Alert, Oriented x3 Psychological: Normal affect Diagnostic/Tx/Re-eval Impressions Chest X-Ray 12/12/18 15:00 IMPRESSION: No acute abnormality is seen. Prior midline sternotomy. Electronically Signed: Andrez Violetta, at 15:17 EST , Service support , 12/12/18 15:00 Chest 1 View (Portable) [RAD] Stat Laboratory Results 12/12/18 12/12/18 14:30 14:30 WBC 10.2 RBC 5.02 Hgb 15.8 Hct 45.9 MCV 91.4 MCH 31.5 MCHC 34.4 RDW Std Deviation 40.7 RDW Coeff of Rose 12.2 Plt Count 257 MPV 9.9 Immature Gran % (Auto) 0.700 Neut % (Auto) 58.9 Lymph % (Auto) 33.9 [place] % (Auto) 4.1 Eos % (Auto) 1.7 Baso % (Auto) 0.7 Absolute Neuts (auto) 6.0 Absolute Lymphs (auto) 3.46 Nucleated RBC % 0 Sodium 138 Potassium 3.5 Chloride 105 Carbon Dioxide 27.0 Anion Gap 6 BUN 13 Creatinine 1.03 Estim Creat Clear Calc 86.25 Est GFR (MDRD) Af Amer 105 Est GFR (MDRD) Non-Af 87 BUN/Creatinine Ratio 12.6 Glucose 125 H Calcium 9.2 Troponin I < 0.015 - EKG Initial EKG Interpretation: Sinus Rhythm - Sinus at [address] change. Prior septal infarct noted. - Medical Decision Making Patient taken aspirin prior to arrival. He was given morphine and Zofran here. On repeat evaluation he states his pain was improved but is now returning. Repeat EKG will be obtained. Patient be admitted for cycling of cardiac enzymes and further evaluation. ED Disposition - Plan for ED Patient: Disposition: Acute Care Hospital [facility] Diagnosis: Chest pain Referrals: Natalia Xiao MD [Primary Care Provider] -
[2018-12-12 15:10] LABS: Absolute Lymphocyte Count 3.46 X10^3/uL (0.83-4.51); Basophil# 0.07 X10^3/uL; Basophil% 0.7 % (0-1); Eosinophil# 0.17 X10^3/uL; Eosinophils% 1.7 % (0-5); Hematocrit 45.9 % (40-54); Hemoglobin 15.8 g/dL (13.0-16.5); Lymphocyte # 3.46 X10^3/ul (4.0); Lymphocyte % 33.9 % (19-41); Mean Corp Hgb Conc 34.4 g/dL (32-36); Mean Corpuscular Hgb 31.5 pg (27.0-32.0); Mean Corpuscular Volume 91.4 fL (80-94); Mean Platelet Vol. 9.9 fl (6.2-12.0); Monocyte# 0.42 X10^3/uL; Monocyte% 4.1 % (0-10); NRBC Flagged by Analyzer 0 % (0-5); Neutrophil # 6.01 X10^3/uL (2.7-7.7); Neutrophil % 58.9 % (47-70); Platelet Count 257 K/mm3 (150-450); RBC Distribution Width CV 12.2 % (11.6-14.6); RBC Distribution Width SD 40.7 fl (35.1-43.9); Red Blood Count 5.02 M/mm3 (4.6-6.2); White Blood Count 10.2 K/mm3 (4.4-11.0)
[2018-12-12] MEDS: Morphine 4 MG/ML Syringe IV ×2 (15:11→16:03)
[2018-12-12] MEDS: Ondansetron 4 MG/2 ML Vial IV (15:11)
[2018-12-12 15:23] LABS: Anion Gap 6 (5-15); BUN 13 mg/dL (7-18); BUN/Creat Ratio 12.6 RATIO (10-20); Calcium,Total 9.2 mg/dL (8.5-10.1); Chloride 105 mmol/L (98-107); Creatinine, Serum 1.03 mg/dL (0.70-1.30); EST Glomerular Filtration Rate 87 mL/min (>60); Est Glom Filt Rate - Afr Amer 105 mL/min (>60); Estimated Creatinine Clearance 86.25 ml/min; Glucose 125 mg/dL (74-106); Potassium 3.5 mmol/L (3.5-5.1); Sodium Level 138 mmol/L (136-145)
[2018-12-12] MEDS: 0.9% Normal Saline 1,000 ML 150 ML IV (15:39)
--- NOTE | 2018-12-12 15:51 | EKG12_ITS ---
Test Reason : CP Blood Pressure : / mmHG Vent. Rate : 080 BPM Atrial Rate : 080 BPM P-R Int : 144 ms QRS Dur : 064 ms QT Int : 362 ms P-R-T Axes : 066 065 048 degrees QTc Int : 417 ms Normal sinus rhythm Septal infarct , age undetermined Abnormal ECG Confirmed by OMAR CASAS, CHERRI ([id number]), supervising editor trailer OMID MARIN ([id number]) on 12/17/2018 2:34:53 PM Referred By: Felipa Middleton Confirmed By:CHERRI NELSON MD
[2018-12-12] MEDS: proMETHazine 25 MG/ML Syringe 6.25 MG IV (16:02)
--- NOTE | 2018-12-12 16:14 | PCM.HP.STD ---
Problem List (1) Chest pain Status: Acute (2) Dyspnea on exertion Status: Acute (3) Chronic hepatitis C Status: Chronic (4) Arteriosclerosis of coronary artery in patient with history of myocardial infarction Status: Chronic Comment: Urgent WILKES to LAD post STEMI per Dr. Arthur Glass @ [facility] 02/03/2008 (5) History of left heart catheterization Status: Chronic Comment: Per Dr. William Persaud @ [facility] [place]:Single vessel CAD with severe ostial LAD lesion. (6) History of non-ST elevation myocardial infarction (NSTEMI) Status: Chronic (7) History of ST elevation myocardial infarction (STEMI) Status: Chronic (8) S/P CABG x 1 Status: Chronic Comment: Urgent WILKES to LAD post STEMI per Dr. Arthur Glass @ [facility] [place] 02/03/2008 (9) HTN (hypertension) Status: Chronic Qualifiers: Hypertension type: essential hypertension Qualified Code(s): I10 - Essential (primary) hypertension (10) HLD (hyperlipidemia) Status: Chronic Qualifiers: Hyperlipidemia type: unspecified Qualified Code(s): E78.5 - Hyperlipidemia, unspecified (11) Polysubstance abuse Status: Chronic Comment: Found unresponsive, revived with Narcan 10/25/2017, needle found in bathroom, pt denied abuse. drug screen 08/08 + for benzo's, Meth and cocaine. 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 The patient is a 38 year old M who presents to the emergency room due to chest pain. Patient reports he was returning from lunch break today when he developed sudden chest pain which he describes as both sharp and pressure-like that radiated up both sides of his neck and down his left arm. He reports associated shortness of breath, lightheadedness and diaphoresis. Patient reports he has had these episodes intermittently for several months. He does not note that these are associated with exertion. He follows with Dr. Saenz who he saw all in October, he was also having similar symptoms during that time. Patient reports his chest pain continued for approximately 4 hours. Patient reports his symptoms improved following morphine in ER. Patient reports history of maker, hypertension, hyperlipidemia, tobacco dependence, history of polysubstance abuse, chronic hepatitis C. Past Medical History Past Medical History (Chronic Problems): Chronic Problems (Last Updated 10/29/18 @ 10:19 by Bushra Bernal) Chronic hepatitis C (Chronic) Arteriosclerosis of coronary artery in patient with history of myocardial infarction (Chronic) Urgent WILKES to LAD post STEMI per Dr. Arthur Glass @ [facility] [place] 02/03/2008 History of left heart catheterization (Chronic 02/03/08) Per Dr. William Persaud @ [facility]:Single vessel CAD with severe ostial LAD lesion. History of non-ST elevation myocardial infarction (NSTEMI) (Chronic) History of ST elevation myocardial infarction (STEMI) (Chronic 02/03/08) S/P CABG x 1 (Chronic 02/03/08) Urgent WILKES to LAD post STEMI per Dr. Arthur Glass @ [facility] [place] 02/03/2008 HTN (hypertension) (Chronic) HLD (hyperlipidemia) (Chronic) Polysubstance abuse (Chronic) Found unresponsive, revived with Narcan 10/25/2017, needle found in bathroom, pt denied abuse. drug screen 08/08 + for benzo's, Meth and cocaine. 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 Arthur Glass @ [facility] 02/03/2008 History of non-ST elevation myocardial infarction (NSTEMI) (Chronic) I25.[address] elevation myocardial infarction (STEMI) (Chronic) Onset Date: 02/03/08 I25.2 HTN (hypertension) (Chronic) I10 HLD (hyperlipidemia) (Chronic) E78.5 Smoking addiction (Chronic) F17.200 2 packs per day Allergies No Known Allergies Allergy (Verified 12/12/18 14:21) Home Medications: Ambulatory Orders Medication Instructions Recorded Nitroglycerin [Nitrostat] 0.4 mg SL PRN PRN #30 tab.subl 02/08/18 albuterol sulfate HFA 90 2 puff INHALATION Q4H PRN g 10/28/18 mcg/actuation aerosol inhaler aspirin 81 mg tablet,delayed 81 mg PO DAILY 10/28/18 release lisinopril 2.5 mg tablet 2.5 mg PO DAILY 10/28/18 metoprolol succinate ER 25 mg 25 mg PO DAILY 10/28/18 tablet,extended release 24 hr omeprazole 20 mg capsule,delayed 20 mg PO DAILY cap 10/28/18 release clopidogrel 75 mg tablet 75 mg PO DAILY #30 tab 10/29/18 Atorvastatin Calcium 80 mg PO DAILY 12/12/18 Divalproex Sodium 500 mg PO QHS 12/12/18 Surgical History: Surgical History (Last Reviewed 10/29/18 @ 09:59 by Bushra Bernal) History of left heart catheterization (Chronic) Onset Date: 02/03/[address] William Persaud @ [facility] [place]:Single vessel CAD with severe ostial LAD lesion. S/P CABG x 1 (Chronic) Onset Date: 02/03/08 Z95.1 Urgent WILKES to LAD post STEMI per Dr. Arthur Glass @ [facility] [place] 02/03/2008 Surgical History: - - CABG, right ankle surgery. Psychiatric History: No pertinent psych hx Lives: Spouse/ Significant Other Smoking Status: Current every day smoker Tobacco Use: Cigarettes Alcohol: None Drugs: None - *Family History Maternal Family History: Family History (Last Reviewed 12/12/18 @ 16:41 by ROSE Jon) Father CAD (coronary artery disease) Hypertension Hyperlipidemia COPD (chronic obstructive pulmonary disease) Sudden cardiac Stented coronary artery S/P CABG x 3 History Items: Hypertension Paternal Family History: Family History (Last Reviewed 12/12/18 @ 16:41 by ROSE Jon) Father CAD (coronary artery disease) Hypertension Hyperlipidemia COPD (chronic obstructive pulmonary disease) Sudden cardiac Stented coronary artery S/P CABG x 3 Review of Systems Constitutional: Denies: Chills, Fever, Weight Change HEENT: Denies: Head Aches, Sinus Congestion, Sinus Drainage Cardiovascular: Reports: Chest Pain, Chest Pressure, Light Headedness, - - Diaphoresis associated with chest pain. Denies: Palpitations, Syncope Respiratory: Reports: Shortness of breath upon exertion. Denies: Cough, Shortness of breath at rest, Sputum production Gastrointestinal: Denies: Abdominal Pain, Nausea, Vomiting Genitourinary: Denies: Dysuria Musculoskeletal: Denies: Joint Pain, Joint Tenderness Skin: Denies: Rash, Wounds Neurological: Denies: Numbness, Tingling, Focal weakness Psychiatric: Denies: Anxiety, Depression, Homicidal Ideations, Suicidal Ideations Hematologic/ Lymphatic: Denies: Easy Bruising, Easy Bleeding VTE Information - Inpt Only VTE Present on Admission: No VTE Mechan Device Prophylaxis: None VTE Pharm Prophylaxis ordered?: Yes Patient Problems: Active and Suspected Problems (Last Updated 10/29/18 @ 10:19 by Bushra Bernal) Chest pain (Acute) - Physical Exam Vitals/I&O's: Vital Signs Temp Pulse Resp BP Pulse Ox 98.2 F 68 13 133/83 H 97 12/12/18 14:15 12/12/18 16:08 12/12/18 16:08 12/12/18 16:08 12/12/18 16:08 Oxygen Flow Rate (L/min) 2 Oxygen Delivery Method Room Air Weight: 168 lb Body Mass Index (BMI) 27.9 General: Alert, Oriented x3, Cooperative HEENT: Atraumatic, PERRLA, EOMI, Normocephalic Neck: Supple, No JVD, Negative Carotid Bruits Lungs: Clear to auscultation, Normal air movement Cardiovascular: Regular rate, Regular Rhythm, Normal S1, Normal S2, No murmurs Abdomen: Bowel Sounds Present, Soft, Non Tender, Non-Distended Extremities: No clubbing, No cyanosis, No edema, Capillary Refill Less than 3 Seconds Skin: No rashes, No breakdown Musculoskeletal: No Tenderness to Palpation of Joints or Extremities Neurological: Cranial nerves II-XII grossly intact, Neuro grossly intact Psych/Mental Status: Normal Affect, Appropriate Laboratory Results 12/12/18 14:30: WBC 10.2, RBC 5.02, Hgb 15.8, Hct 45.9, MCV 91.4, MCH 31.5, MCHC 34.4, RDW Std Deviation 40.7, RDW Coeff of Rose 12.2, Plt Count 257, MPV 9.9, Immature Gran % (Auto) 0.700, Neut % (Auto) 58.9, Lymph % (Auto) 33.9, Mchenry % (Auto) 4.1, Eos % (Auto) 1.7, Baso % (Auto) 0.7, Absolute Neuts (auto) 6.0, Absolute Lymphs (auto) 3.46, Nucleated RBC % 0 12/12/18 14:30: Sodium 138, Potassium 3.5, Chloride 105, Carbon Dioxide 27.0, Anion Gap 6, BUN 13, Creatinine 1.03, Estim Creat Clear Calc 86.25, Est GFR (MDRD) Af Amer 105, Est GFR (MDRD) Non-Af 87, BUN/Creatinine Ratio 12.6, Glucose 125 H, Calcium 9.2, Troponin I < 0.015 Current Medications Sodium Chloride () 1,000 mls @ 150 mls/hr IV .Q6H40M CADEN Last Admin: 12/12/18 15:39 Dose: 150 mls/hr Documented by: Assessment/Plan All Active Problems (Last Updated 10/29/18 @ 10:19 by Bushra Bernal) Chest pain (Acute) Dyspnea on exertion (Acute) Abnormal LFTs (Resolved) Chest pain (Resolved) Pneumonia (Resolved) 1. Chest pain, history of CAD/critical ostial LAD, underwent single-vessel CABG with wilkes to the LAD in 2008. Cycle enzymes. Repeat EKG in a.m. Continue aspirin, statin, Plavix, beta-kaylynn, lisinopril. Follows with Dr. Saenz. Consult cardiology. 2. Hypertension-stable, continue lisinopril, metoprolol regimen. 3. Hyperlipidemia-continue statin. Fasted lipid panel in a.m. 4. Tobacco dependence-current 2+ pack per day smoker. Declines replacement patch. Encouraged cessation. 5. History of polysubstance abuse-denies current substance use. Obtain urine tox screen. 6. Chronic hepatitis C-outpatient follow-up. 7. Bipolar disorder-recently placed on Depakote. DVT prophylaxis-Lovenox sc This patient was seen by ROSE Jon under the supervision of Dr. Middleton.
[2018-12-12 17:41] LABS: Magnesium 1.9 mg/dL (1.6-2.6)
--- NOTE | 2018-12-12 19:00 | EKG12_ITS ---
Test Reason : CP ADMIT Blood Pressure : / mmHG Vent. Rate : 056 BPM Atrial Rate : 056 BPM P-R Int : 142 ms QRS Dur : 062 ms QT Int : 408 ms P-R-T Axes : 051 061 055 degrees QTc Int : 393 ms Sinus bradycardia Septal infarct , age undetermined Abnormal ECG When compared with ECG of 12-DEC-2018 16:01, MANUAL COMPARISON REQUIRED, DATA IS UNCONFIRMED Confirmed by OMAR CASAS, CHERRI ([id number]), editorial director OMID MARIN ([id number]) on 12/17/2018 3:04:48 PM Referred By: Felipa Middleton Confirmed By:CHERRI NELSON MD
--- NOTE | 2018-12-12 21:00 | NURSING ---
Pt said he was leaving. When asked why pt would not answer. Pt on the phone. Informed pt the importance of not leaving due to heart history. Pt said he will let me know if he is leaving or staying.
[2018-12-12] MEDS: Atorvastatin Calcium 80 MG Tablet PO (21:22)
[2018-12-12] MEDS: Divalproex Sodium 250 MG Tablet 500 MG PO (21:23)
[2018-12-12] MEDS: Morphine 2 MG/ML Syringe IV (21:24)
[2018-12-12 21:26] LABS: Amphetamine Urine VISTA NEGATIVE (<1000 ng/mL); Barbiturate Urine VISTA NEGATIVE (< 200 ng/mL); Benzodiazepine Urine VISTA NEGATIVE (< 200 ng/mL); Cocaine Urine VISTA NEGATIVE (< 300 ng/mL); Ecstacy Urine VISTA NEGATIVE (< 500 ng/mL); Methadone Urine VISTA NEGATIVE (< 300 ng/mL); PCP Urine VISTA NEGATIVE (< 25 ng/mL); THC Urine VISTA POSITIVE (< 50 ng/mL); Vista UDS pH Range 6
--- NOTE | 2018-12-12 21:30 | NURSING ---
Pt c/o chest pain that radiates into back. Pt said it never has left. He has had the pain since he was in ed.Pt refused nitro said it caused to0 bad of a murrell. Explained the importance of it. Pt still refused. Resp called for ekg. Morphine given
--- NOTE | 2018-12-12 21:35 | EKG12_ITS ---
Test Reason : AM EKG Blood Pressure : / mmHG Vent. Rate : 058 BPM Atrial Rate : 058 BPM P-R Int : 138 ms QRS Dur : 072 ms QT Int : 424 ms P-R-T Axes : 068 067 060 degrees QTc Int : 416 ms Sinus bradycardia Otherwise normal ECG When compared with ECG of 12-DEC-2018 21:41, MANUAL COMPARISON REQUIRED, DATA IS UNCONFIRMED Confirmed by OMAR CASAS, CHERRI ([id number]), tape editor OMID MARIN ([id number]) on 12/17/2018 3:06:23 PM Referred By: Felipa Middleton Confirmed By:CHERRI NELSON MD
[2018-12-13] VITALS (19 sets, daily range): BP systolic 110–140; BP diastolic 60–83; PULSE 50–79; RESP 16–18; TEMP 36.3–37; O2SAT 95–100
[2018-12-13] MEDS: Morphine 2 MG/ML Syringe IV ×5 (04:25→23:00)
[2018-12-13] MEDS: 0.9% Saline Lock 10 ML Syringe IV ×3 (04:25→17:36)
--- NOTE | 2018-12-13 04:32 | NURSING ---
Called into pt room. Pt c/o chest pain rated a 7 . Offered nitro but pt refused. requested the morphine. 2mg given. Resp notified of ekg..Pt said it felt a little better with his arm over his head.
--- NOTE | 2018-12-13 05:55 | EKG12_ITS ---
Test Reason : CP Blood Pressure : / mmHG Vent. Rate : 062 BPM Atrial Rate : 062 BPM P-R Int : 142 ms QRS Dur : 080 ms QT Int : 430 ms P-R-T Axes : 062 064 063 degrees QTc Int : 436 ms Normal sinus rhythm Nonspecific T wave abnormality Abnormal ECG When compared with ECG of 12-DEC-2018 17:05, MANUAL COMPARISON REQUIRED, DATA IS UNCONFIRMED Confirmed by OMAR CASAS, CHERRI ([id number]), photograph editor OMID MARIN ([id number]) on 12/17/2018 3:05:06 PM Referred By: Felipa Middleton Confirmed By:CHERRI NELSON MD
[2018-12-13 06:35] LABS: Anion Gap 4 (5-15); BUN 15 mg/dL (7-18); Calcium,Total 8.7 mg/dL (8.5-10.1); Chloride 111 mmol/L (98-107); EST Glomerular Filtration Rate 90 mL/min (>60); Est Glom Filt Rate - Afr Amer 108 mL/min (>60); Estimated Creatinine Clearance 85.51 ml/min; Glucose 125 mg/dL (74-106); International Normalized Ratio 1.1; Partial Thromboplast Time 28.9 Seconds (24.1-36.2); Potassium 4.4 mmol/L (3.5-5.1); Prothrombin Time (Protime)PT. 14.1 SECONDS (11.7-14.9); Sodium Level 143 mmol/L (136-145)
[2018-12-13] MEDS: Aspirin E.C. 81 MG Tablet PO (07:28)
[2018-12-13] MEDS: Clopidogrel Bisulfate 75 MG Tablet PO (07:28)
[2018-12-13] MEDS: Lisinopril 2.5 MG Tablet PO (07:28)
[2018-12-13 07:38] LABS: Cholesterol 175 mg/dL (200); High Density Lipoprotein 41 mg/dL; Triglycerides 155 mg/dL; Very Low Density Lipoprotein 31 mg/dL (5-40)
[2018-12-13] MEDS: ALPRAZolam 0.25 MG Tablet PO (09:33)
[2018-12-13] MEDS: Pantoprazole Sodium 20 MG Tablet PO (09:33)
--- NOTE | 2018-12-13 10:18 | PCM.CONS.C ---
<Mynor Sharp - Last Filed: 12/13/18 10:24> Problem List (1) Chest pain Status: Acute (2) Dyspnea on exertion Status: Acute (3) S/P CABG x 1 Status: Chronic Comment: Urgent WILKES to LAD post STEMI per Dr. Arthur Glass @ [facility] 02/03/2008 (4) HTN (hypertension) Status: Chronic Qualifiers: Hypertension type: essential hypertension Qualified Code(s): I10 - Essential (primary) hypertension (5) HLD (hyperlipidemia) Status: Chronic Qualifiers: Hyperlipidemia type: unspecified Qualified Code(s): E78.5 - Hyperlipidemia, unspecified Reason for Consult Date of Consultation: 12/13/18 Reason for Consultation: Chest pain History of Present Illness: The patient is a 38 year old M who presented to [facility] Emergency Department on 12/12/2018 after noting sharp chest pain that radiated to his neck and upper back at work. He has a past medical history of coronary artery disease status post bypass surgery in 2007 with an WILKES to LAD. He also has a history of chronic hepatitis C, tobacco abuse, hypertension, and hyperlipidemia. Patient states yesterday while at work he noted center chest pain that radiated to his neck and upper back. He did also note minimal shortness of breath with this. Prior to this he was in good health other than decreased energy over the last week. His EKG did not reveal any acute ST or T wave changes and showed sinus rhythm. His troponin was negative. He was admitted for further evaluation. Cardiology was consulted accordingly. Past Medical History Allergies/Adverse Reactions: Allergies No Known Allergies Allergy (Verified 12/12/18 14:21) Home Medications: Ambulatory Orders Medication Instructions Recorded Nitroglycerin [Nitrostat] 0.4 mg SL PRN PRN #30 tab.subl 02/08/18 albuterol sulfate HFA 90 2 puff INHALATION Q4H PRN g 10/28/18 mcg/actuation aerosol inhaler aspirin 81 mg tablet,delayed 81 mg PO DAILY 10/28/18 release lisinopril 2.5 mg tablet 2.5 mg PO DAILY 10/28/18 metoprolol succinate ER 25 mg 25 mg PO DAILY 10/28/18 tablet,extended release 24 hr omeprazole 20 mg capsule,delayed 20 mg PO DAILY cap 10/28/18 release clopidogrel 75 mg tablet 75 mg PO DAILY #30 tab 10/29/18 Atorvastatin Calcium 80 mg PO DAILY 12/12/18 Divalproex Sodium 500 mg PO QHS 12/12/18 Past Medical History (Chronic Problems): Chronic Problems (Last Updated 10/29/18 @ 10:19 by Bushra Bernal) Chronic hepatitis C (Chronic) Arteriosclerosis of coronary artery in patient with history of myocardial infarction (Chronic) Urgent WILKES to LAD post STEMI per Dr. Arthur Glass @ [facility] 02/03/2008 History of left heart catheterization (Chronic 02/03/08) Per Dr. William Persaud @ [facility]:Single vessel CAD with severe ostial LAD lesion. History of non-ST elevation myocardial infarction (NSTEMI) (Chronic) History of ST elevation myocardial infarction (STEMI) (Chronic 02/03/08) S/P CABG x 1 (Chronic 02/03/08) Urgent WILKES to LAD post STEMI per Dr. Arthur Glass @ [facility] 02/03/2008 HTN (hypertension) (Chronic) HLD (hyperlipidemia) (Chronic) Polysubstance abuse (Chronic) Found unresponsive, revived with Narcan 10/25/2017, needle found in bathroom, pt denied abuse. drug screen 08/08 + for benzo's, Meth and cocaine. Has been a heroin addict in the past Smoking addiction (Chronic) 2 packs per day Surgical History: - - CABG, right ankle surgery. Psychiatric History: No pertinent psych hx - *Family History Maternal Family History: Family History (Last Reviewed 12/12/18 @ 16:41 by ROSE Jon) Father CAD (coronary artery disease) Hypertension Hyperlipidemia COPD (chronic obstructive pulmonary disease) Sudden cardiac Stented coronary artery S/P CABG x 3 History Items: Hypertension Paternal Family History: Family History (Last Reviewed 12/12/18 @ 16:41 by ROSE Jon) Father CAD (coronary artery disease) Hypertension Hyperlipidemia COPD (chronic obstructive pulmonary disease) Sudden cardiac Stented coronary artery S/P CABG x 3 History Items: No pertinent history Lives: Spouse/ Significant Other Smoking Status: Current every day smoker Tobacco Use: Cigarettes Alcohol: None Drugs: None Review of Systems - Review of Systems General: Denies: Fever, Fatigue, Night Sweats Cardiovascular: Denies: Chest Discomfort, Chest Discomfort at Rest, Chest Discomfort with Exertion, Chest Pressure, Chest Tightness, Chest Heaviness, Shortness of Breath, Shortness of Breath at Rest, Shortness of Breath with Exertion, Orthopnea, PND, Peripheral Edema, Palpitations, Lightheadedness, Dizziness, Near Syncope, Syncope, Orthostatic Symptoms, Claudication Respiratory: Reports: Cough Neurological: Denies: Dizziness Subjectve: Patient seen and evaluated. He denies any chest pain since admission. He denies any current shortness of breath. Objective: Vital Signs Temp Pulse Resp BP Pulse Ox 98.3 F 70 18 120/63 97 12/13/18 07:25 12/13/18 07:25 12/13/18 07:25 12/13/18 07:25 12/13/18 07:25 Oxygen Flow Rate (L/min) 2 Oxygen Delivery Method Room Air Weight: 168 lb 13.985 oz Body Mass Index (BMI) 29.0 Intake and Output for Last 24 Hours 12/11/18 12/12/18 12/13/18 23:59 23:59 23:59 Intake Total 312.5 / 312.5 440 / 440 Output Total 400 / 400 Balance 312.5 / 312.5 40 / 40 General: Healthy Appearing, Awake, Alert, Oriented x 3, Cooperative, No Acute Distress Oral: Moist Mucosa Neck: Supple Lungs: Diminished Left Base, Expiratory Wheezes-Right Cardiovascular: Regular Rhythm, Normal S1, Normal S2, No Murmurs, No Rubs, No Gallops Vascular: No Carotid Bruits Abdomen: Bowel Sounds Present, Soft Extremities: No Cyanosis, No Clubbing, No edema, Normal Capillary Refill Skin: No Rashes Neurological: No Focal Motor or Sensory Deficit Psych/Mental Status: Appropriate 12/12/18 14:30: WBC 10.2, RBC 5.02, Hgb 15.8, Hct 45.9, MCV 91.4, MCH 31.5, MCHC 34.4, Plt Count 257, MPV 9.9, Immature Gran % (Auto) 0.700, Neut % (Auto) 58.9, Lymph % (Auto) 33.9, Early % (Auto) 4.1, Eos % (Auto) 1.7, Baso % (Auto) 0.7, Absolute Neuts (auto) 6.0, Nucleated RBC % 0 12/12/18 14:30: Sodium 138, Potassium 3.5, Chloride 105, Carbon Dioxide 27.0, Anion Gap 6, BUN 13, Creatinine 1.03, Est GFR (MDRD) Af Amer 105, Est GFR (MDRD) Non-Af 87, BUN/Creatinine Ratio 12.6, Glucose 125 H, Calcium 9.2, Troponin I < 0.015 12/12/18 14:30: Magnesium 1.9 12/12/18 17:50: Troponin I < 0.015 12/12/18 20:46: Troponin I < 0.015 12/13/18 05:30: PT 14.1, INR 1.1, APTT 28.9 12/13/18 05:30: Triglycerides 155, Cholesterol 175, LDL Cholesterol 103, VLDL Cholesterol 31, HDL Cholesterol 41 12/13/18 05:30: Sodium 143, Potassium 4.4, Chloride 111 H, Carbon Dioxide 28.0, Anion Gap 4 L, BUN 15, Creatinine 1.00, Est GFR (MDRD) Af Amer 108, Est GFR (MDRD) Non-Af 90, BUN/Creatinine Ratio 15.0, Glucose 125 H, Calcium 8.7 Rhythm: EKG: ECHO: 11/18/2018 Interpretation Summary The estimated ejection fraction is 60 %. Normal diastology for age. Trivial tricuspid valve insufficiency. Right ventricular systolic pressure estimated to be 19 mmHg. Compared to echo report dated 08/09/2016, LV function has remained the same, and RVSP has improved from 38 to 19 mm Hg. The study was technically difficult. Contrast injection was performed. Stress Test: Heart catheterization from 08/10/2016: Conclusions Patent quinault coronary arteries with atretic left internal mammary artery and preserved left ventricular ejection fraction. Small vessels noted throughout PCI: CT Surgery: Holter monitor: EPS: PPM: CXR: Chest CT Scan: Assessment/Plan 1. Chest pain Patient does acknowledge that his chest pain he noted yesterday is similar to symptoms in 2008 prior to bypass surgery. He underwent a heart catheterization on 08/10/2016 that showed ejection fraction of 55%, left main as angiographically normal, LAD as mild luminal irregularities, left circumflex as mild luminal irregularity, right coronary with mild luminal irregularities less than 30%, and WILKES graft to LAD as atretic. He underwent an echocardiogram on 11/15/2018 showed ejection fraction of 60% and no regional wall motion abnormalities. His cardiac enzymes have been negative x3. As noted previously, his EKG did not reveal any acute ST or T wave changes. Is unclear if his symptoms are coronary artery disease related. After further discussion with patient, it will be decided to further rule out coronary artery disease with nuclear stress test versus repeat heart catheterization. He will continue with aspirin, Plavix, lisinopril, metoprolol succinate, and atorvastatin. He is currently receiving Lovenox 40 mg cutaneously. 2. Hypertension Patient's blood pressure is well-controlled. We will continue to monitor. We will not make any medication regimen changes. 3. Hyperlipidemia Lipid panel from 12/13/2018 showed cholesterol: 175, HDL: 41, LDL: 103, and triglycerides: 155. He will continue current statin medication. Patient's case was reviewed with Dr. Funes who will also personally evaluate patient. Thank you for allowing us to participate in the patients plan of care, if you have any questions please do not hesitate to call. This note was generated using a voice recognition system and there may be incorrect words, spelling or punctuation that were not noted when reviewing the office note prior to saving. <Matilde Tucker - Last Filed: 12/13/18 11:51> Reason for Consult History of Present Illness: The patient is a 38 year old M [] Past Medical History - *Family History Maternal Family History: Family History (Last Reviewed 12/12/18 @ 16:41 by ROSE Jon) Father CAD (coronary artery disease) Hypertension Hyperlipidemia COPD (chronic obstructive pulmonary disease) Sudden cardiac Stented coronary artery S/P CABG x 3 Paternal Family History: Family History (Last Reviewed 12/12/18 @ 16:41 by ROSE Jon) Father CAD (coronary artery disease) Hypertension Hyperlipidemia COPD (chronic obstructive pulmonary disease) Sudden cardiac Stented coronary artery S/P CABG x 3 Objective: Vital Signs Temp Pulse Resp BP Pulse Ox 98.3 F 70 18 120/63 97 12/13/18 07:25 12/13/18 07:25 12/13/18 07:25 12/13/18 07:25 12/13/18 07:25 Oxygen Flow Rate (L/min) 2 Oxygen Delivery Method Room Air Weight: 168 lb 13.985 oz Body Mass Index (BMI) 29.0 Intake and Output for Last 24 Hours 12/11/18 12/12/18 12/13/18 23:59 23:59 23:59 Intake Total 312.5 / 312.5 440 / 440 Output Total 400 / 400 Balance 312.5 / 312.5 40 / 40 12/12/18 14:30: WBC 10.2, RBC 5.02, Hgb 15.8, Hct 45.9, MCV 91.4, MCH 31.5, MCHC 34.4, Plt Count 257, MPV 9.9, Immature Gran % (Auto) 0.700, Neut % (Auto) 58.9, Lymph % (Auto) 33.9, Early % (Auto) 4.1, Eos % (Auto) 1.7, Baso % (Auto) 0.7, Absolute Neuts (auto) 6.0, Nucleated RBC % 0 12/12/18 14:30: Sodium 138, Potassium 3.5, Chloride 105, Carbon Dioxide 27.0, Anion Gap 6, BUN 13, Creatinine 1.03, Est GFR (MDRD) Af Amer 105, Est GFR (MDRD) Non-Af 87, BUN/Creatinine Ratio 12.6, Glucose 125 H, Calcium 9.2, Troponin I < 0.015 12/12/18 14:30: Magnesium 1.9 12/12/18 17:50: Troponin I < 0.015 12/12/18 20:46: Troponin I < 0.015 12/13/18 05:30: PT 14.1, INR 1.1, APTT 28.9 12/13/18 05:30: Triglycerides 155, Cholesterol 175, LDL Cholesterol 103, VLDL Cholesterol 31, HDL Cholesterol 41 12/13/18 05:30: Sodium 143, Potassium 4.4, Chloride 111 H, Carbon Dioxide 28.0, Anion Gap 4 L, BUN 15, Creatinine 1.00, Est GFR (MDRD) Af Amer 108, Est GFR (MDRD) Non-Af 90, BUN/Creatinine Ratio 15.0, Glucose 125 H, Calcium 8.7 Rhythm: EKG: ECHO: Stress Test: Cardiac Cath: PCI: CT Surgery: Holter monitor: EPS: PPM: CXR: Chest CT Scan: Assessment/Plan Patient was seen, evaluated and I discussed with Mynor Sharp APN. Agree with Mynor Sharp's consult note. Patient complains of chest pain that is worse with exertion. His angiogram films from 2017 were reviewed. Treatment options including stress testing and cardiac catheterization were discussed with the patient in detail. Patient absolutely prefers to proceed with cardiac catheterization. He does understand the risks and benefits and wishes that we get this done as an inpatient. I think with the history that the patient is giving it is not unreasonable at this time. We will proceed with coronary angiography this afternoon.
--- NOTE | 2018-12-13 12:20 | CASEMGMT ---
According to [facility] website, the following are in-network tertiary facilities: [facility], [place], [facility], [place], [facility], [facility], [place], [facility], and . Jarrod LOPEZ CM
[2018-12-13] MEDS: Metoprolol(XL)Succ 25 MG Tablet PO (12:42)
--- NOTE | 2018-12-13 13:46 | PCM.PROGNOTE ---
<Subha Paez - Last Filed: 12/13/18 13:50> Patient Problems: Active and Suspected Problems (Last Updated 10/29/18 @ 10:19 by Bushra Bernal) Chest pain (Acute) Subjective: Patient seen and examined. Patient reports anxiety and agitation. Intermittently threatening to leave AGAINST MEDICAL ADVICE. Reports intermittent chest pain overnight, similar to presenting symptoms. - Physical Exam Vitals/I&O's: Vital Signs Temp Pulse Resp BP Pulse Ox 97.4 F L 70 18 128/76 H 98 12/13/18 12:39 12/13/18 12:42 12/13/18 12:39 12/13/18 12:42 12/13/18 12:39 Oxygen Flow Rate (L/min) 2 Oxygen Delivery Method Room Air Weight: 168 lb 13.985 oz Body Mass Index (BMI) 29.0 Intake and Output for Last 24 Hours 12/11/18 12/12/18 12/13/18 23:59 23:59 23:59 Intake Total 312.5 / 312.5 540 / 540 Output Total 400 / 400 Balance 312.5 / 312.5 140 / 140 General: Alert, Oriented x3, Cooperative HEENT: Atraumatic, PERRLA, EOMI, Normocephalic Neck: Supple, No JVD, Negative Carotid Bruits Lungs: Clear to auscultation, Normal air movement Cardiovascular: Regular rate, Regular Rhythm, Normal S1, Normal S2, No murmurs Abdomen: Bowel Sounds Present, Soft, Non Tender, Non-Distended Extremities: No clubbing, No cyanosis, No edema, Capillary Refill Less than 3 Seconds Skin: No rashes, No breakdown Musculoskeletal: No Tenderness to Palpation of Joints or Extremities Neurological: Cranial nerves II-XII grossly intact, Neuro grossly intact Psych/Mental Status: Normal Affect, Appropriate Laboratory Results 12/12/18 14:30: WBC 10.2, RBC 5.02, Hgb 15.8, Hct 45.9, MCV 91.4, MCH 31.5, MCHC 34.4, RDW Std Deviation 40.7, RDW Coeff of Rose 12.2, Plt Count 257, MPV 9.9, Immature Gran % (Auto) 0.700, Neut % (Auto) 58.9, Lymph % (Auto) 33.9, [place] % (Auto) 4.1, Eos % (Auto) 1.7, Baso % (Auto) 0.7, Absolute Neuts (auto) 6.0, Absolute Lymphs (auto) 3.46, Nucleated RBC % 0 12/12/18 14:30: Sodium 138, Potassium 3.5, Chloride 105, Carbon Dioxide 27.0, Anion Gap 6, BUN 13, Creatinine 1.03, Estim Creat Clear Calc 86.25, Est GFR (MDRD) Af Amer 105, Est GFR (MDRD) Non-Af 87, BUN/Creatinine Ratio 12.6, Glucose 125 H, Calcium 9.2, Troponin I < 0.015 12/12/18 14:30: Magnesium 1.9 12/12/18 17:50: Troponin I < 0.015 12/12/18 20:46: Troponin I < 0.015 12/12/18 21:00: Urine Opiates Screen POSITIVE H, Urine Methadone Screen NEGATIVE, Ur Barbiturates Screen NEGATIVE, Ur Phencyclidine Scrn NEGATIVE, Ur Amphetamines Screen NEGATIVE, U Methamphetamin-MDMA NEGATIVE, U Benzodiazepines Scrn NEGATIVE, Urine Cocaine Screen NEGATIVE, U Cannabinoids Screen POSITIVE H, Ur Drug Screen Comment 12/13/18 05:30: PT 14.1, INR 1.1, APTT 28.9 12/13/18 05:30: Triglycerides 155, Cholesterol 175, LDL Cholesterol 103, VLDL Cholesterol 31, HDL Cholesterol 41 12/13/18 05:30: Sodium 143, Potassium 4.4, Chloride 111 H, Carbon Dioxide 28.0, Anion Gap 4 L, BUN 15, Creatinine 1.00, Estim Creat Clear Calc 85.51, Est GFR (MDRD) Af Amer 108, Est GFR (MDRD) Non-Af 90, BUN/Creatinine Ratio 15.0, Glucose 125 H, Calcium 8.7 Current Medications Aspirin (Ecotrin) 81 mg PO DAILY@0800 [facility] Last Admin: 12/13/18 07:28 Dose: 81 mg Documented by: Atorvastatin Calcium (Lipitor) 80 mg PO QHS [facility] Last Admin: 12/12/18 21:22 Dose: 80 mg Documented by: Clopidogrel Bisulfate (Plavix) 75 mg PO DAILY [facility] Last Admin: 12/13/18 07:28 Dose: 75 mg Documented by: Divalproex Sodium (Depakote) 500 mg PO QHS [facility] Last Admin: 12/12/18 21:23 Dose: 500 mg Documented by: Enoxaparin Sodium (Lovenox) 40 mg SC DAILY@0600 [facility] Last Admin: 12/13/18 06:56 Dose: Not Given Documented by: Lisinopril (Zestril) 2.5 mg PO DAILY [facility] Last Admin: 12/13/18 07:28 Dose: 2.5 mg Documented by: Metoprolol Succinate (Toprol Xl (Beta Mira)) 25 mg PO DAILY [facility] Last Admin: 12/13/18 12:42 Dose: 25 mg Documented by: Morphine Sulfate () 2 mg IV Q3H PRN PRN PRN Reason: Pain Score 6-10/10 Last Admin: 12/13/18 12:44 Dose: 2 mg Documented by: Nitroglycerin (Nitrostat) 0.4 mg SUBLINGUAL Q5M PRN PRN Reason: CARDIAC/CHEST PAIN Ondansetron HCl (Zofran) 4 mg IV Q8H PRN PRN PRN Reason: NAUSEA/VOMITING Pantoprazole Sodium (Protonix) 20 mg PO DAILY [facility] Last Admin: 12/13/18 09:33 Dose: 20 mg Documented by: Sodium Chloride () 10 - 40 ml IV UD PRN PRN Reason: SALINE FLUSH Last Admin: 12/13/18 12:44 Dose: 10 ml Documented by: Medical Necessity - Tobacco Use Smoking Status: Current every day smoker Tobacco Use: Cigarettes Assessment/Plan All Active Problems (Last Updated 10/29/18 @ 10:19 by Bushra Bernal) Chest pain (Acute) Dyspnea on exertion (Acute) Abnormal LFTs (Resolved) Chest pain (Resolved) Pneumonia (Resolved) 1. Chest pain, history of CAD/critical ostial LAD, underwent single-vessel CABG with wilkes to the LAD in 2008. Troponin negative. EKG without evidence of acute ischemia. Continue aspirin, statin, Plavix, beta-mira, lisinopril. Follows with Dr. Saenz. Consult cardiology. Plan for cardiac catheterization this afternoon. 2. Hypertension-stable, continue lisinopril, metoprolol regimen. 3. Hyperlipidemia-continue statin. 4. Tobacco dependence-current 2+ pack per day smoker. Declines replacement patch. Encouraged cessation. 5. History of polysubstance abuse-denies current substance use. Urine tox positive for opiates and cannabinoids. 6. Chronic hepatitis C-outpatient follow-up. 7. Bipolar disorder-recently placed on Depakote. DVT prophylaxis-Lovenox sc This patient was seen by ROSE Jon under the supervision of Dr. Ricardo. <Jacoby Ricardo - Last Filed: 12/13/18 15:41> Subjective: Seen and examined. Patient is very anxious. As mentioned above patient was also threatening for AMA. Has intermittent chest pain. Has single-vessel coronary artery disease, WILKES to LAD status post STEMI in at [facility] in January 2008 - Physical Exam Vitals/I&O's: Vital Signs Temp Pulse Resp BP Pulse Ox 97.4 F L 70 18 128/76 H 98 12/13/18 12:39 12/13/18 12:42 12/13/18 12:39 12/13/18 12:42 12/13/18 12:39 Oxygen Flow Rate (L/min) 2 Oxygen Delivery Method Room Air Weight: 168 lb 13.985 oz Body Mass Index (BMI) 29.0 Intake and Output for Last 24 Hours 12/11/18 12/12/18 12/13/18 23:59 23:59 23:59 Intake Total 312.5 / 312.5 540 / 540 Output Total 400 / 400 Balance 312.5 / 312.5 140 / 140 General: Alert, Oriented x3, Cooperative HEENT: Atraumatic, PERRLA, EOMI, Normocephalic Neck: Supple, No JVD, Negative Carotid Bruits Lungs: Clear to auscultation, Normal air movement, No rhonchi, No wheeze, No rales Cardiovascular: Regular rate, Regular Rhythm, Normal S1, Normal S2, No murmurs, No Ectopic Activity Abdomen: Bowel Sounds Present, Soft, Non Tender, Non-Distended Extremities: No edema, Capillary Refill Less than 3 Seconds, No Calf Tenderness Skin: No rashes, No breakdown Musculoskeletal: No Tenderness to Palpation of Joints or Extremities, Arthritic Changes Neurological: Cranial nerves II-XII grossly intact Psych/Mental Status: Normal Affect, Appropriate Laboratory Results 12/12/18 14:30: Magnesium 1.9 12/12/18 17:50: Troponin I < 0.015 12/12/18 20:46: Troponin I < 0.015 12/12/18 21:00: Urine Opiates Screen POSITIVE H, Urine Methadone Screen NEGATIVE, Ur Barbiturates Screen NEGATIVE, Ur Phencyclidine Scrn NEGATIVE, Ur Amphetamines Screen NEGATIVE, U Methamphetamin-MDMA NEGATIVE, U Benzodiazepines Scrn NEGATIVE, Urine Cocaine Screen NEGATIVE, U Cannabinoids Screen POSITIVE H, Ur Drug Screen Comment 12/13/18 05:30: PT 14.1, INR 1.1, APTT 28.9 12/13/18 05:30: Triglycerides 155, Cholesterol 175, LDL Cholesterol 103, VLDL Cholesterol 31, HDL Cholesterol 41 12/13/18 05:30: Sodium 143, Potassium 4.4, Chloride 111 H, Carbon Dioxide 28.0, Anion Gap 4 L, BUN 15, Creatinine 1.00, Estim Creat Clear Calc 85.51, Est GFR (MDRD) Af Amer 108, Est GFR (MDRD) Non-Af 90, BUN/Creatinine Ratio 15.0, Glucose 125 H, Calcium 8.7 Current Medications Aspirin (Ecotrin) 81 mg PO DAILY@0800 [facility] Last Admin: 12/13/18 07:28 Dose: 81 mg Documented by: [facility]atin [facility] Last Admin: 12/12/18 21:22 Dose: 80 mg Documented by: Clopidogrel Bisulfate (Plavix) 75 mg PO DAILY [facility] Last Admin: 12/13/18 07:28 Dose: 75 mg Documented by: Divalproex Sodium (Depakote) 500 mg PO QHS [facility] Last Admin: 12/12/18 21:23 Dose: 500 mg Documented by: Enoxaparin Sodium (Lovenox) 40 mg SC DAILY@0600 [facility] Last Admin: 12/13/18 06:56 Dose: Not Given Documented by: Heparin Sodium (Beef Lung) (Heparin 500 Unit/5 Ml (100/Ml)) 500 unit IV UD PRN PRN Reason: HEPARIN FLUSH Sodium Chloride () 1,000 mls @ 150 mls/hr IV .Q6H40M [facility] Labetalol HCl (Trandate) 5 mg IV X1 PRN PRN Reason: SBP > 160 prior to sheath pull Stop: 12/15/18 15:27 Lisinopril (Zestril) 2.5 mg PO DAILY [facility] Last Admin: 12/13/18 07:28 Dose: 2.5 mg Documented by: Metoprolol Succinate (Toprol Xl (Beta Mira)) 25 mg PO DAILY [facility] Last Admin: 12/13/18 12:42 Dose: 25 mg Documented by: Morphine Sulfate () 2 mg IV Q3H PRN PRN PRN Reason: Pain Score 6-10/10 Last Admin: 12/13/18 12:44 Dose: 2 mg Documented by: Nitroglycerin (Nitrostat) 0.4 mg SUBLINGUAL Q5M PRN PRN Reason: CARDIAC/CHEST PAIN Ondansetron HCl (Zofran) 4 mg IV Q8H PRN PRN PRN Reason: NAUSEA/VOMITING Pantoprazole Sodium (Protonix) 20 mg PO DAILY [facility] Last Admin: 12/13/18 09:33 Dose: 20 mg Documented by: Sodium Chloride () 10 - 40 ml IV UD PRN PRN Reason: SALINE FLUSH Last Admin: 12/13/18 12:44 Dose: 10 ml Documented by: Assessment/Plan This patient was seen in conjunction with Subha VIRK. I have independently interviewed and examined the patient and reviewed pertinent history, examination findings, laboratory and plan of management. I have reviewed the note and agree with the documented findings with the few additional points. In brief, patient is admitted for chest pain with history of STEMI in status post WILKES to LAD CABG 1 vessel came to ER with chest pain intermittent. Chest pain is midsternal. EKG does not show evidence of ischemia. Troponins negative. On medications as mentioned above. Dr. Saenz, medical social consultant was consulted. Patient had cardiac cath this afternoon. Cardiac cath found 50 to 60% stenosis in the RCA. No major stenosis/thrombosis to warrant PCI. Plan for stress test after 2 weeks of discharge. Other comorbidities as listed above. Blood pressure is stable at 128/76. Heart rate is 70. Hemodynamically stable. I have discussed my assessment with Subha VIRK and orders have been reviewed. Code Visit Inpatient E&M: 72024 Subs Hosp L2
--- NOTE | 2018-12-13 14:28 | NURSING ---
This RN called report to JESSICA Sandoval in the cath lab tech
--- NOTE | 2018-12-13 15:39 | CL.D_ITS ---
Patient Name: MANJIT RAMÍREZ Study Date: 12/13/2018 Performing: Otf Saenz MD Ht: 64.17 inches 163 cm : 1980 Wt: 169.76 lbs 77 kg Age: 38 Gender: male BSA: 1.83 PROCEDURE(S) PERFORMED ND68-ENC/COR/LV/CABG CLINICAL PROFILE AND INDICATIONS Indications: ACS <= 24 hrs, New Onset Angina <= 2 months, Stable Known CAD Heart Failure: None Stress/Imaging Stress/Image Study Performed: No Angina Classification Anginal Classification w/in 2 Weeks: CCS IV CAD Presentations: Symptom unlikely to be ischemic. Comorbidities/Risk Factors: Current/Recent Smoker (< 1year) Hypertension Dyslipidemia Prior CABG CONCLUSIONS Normal LV size, wall motion,and systolic function Non obstructive coronary arteries RECOMMENDATIONS Risk factor modification Management as per referring [facility] Stress echo in 2 weeks to eval inferior/posterior wall. If abnormal, will return for elective PCI of RCA. Manual sheath removal. Pt was having difficulty laying still throughout the procedure despite 4mg IV versed. D/w Dr Ricardo. DESCRIPTION OF PROCEDURE The patient arrived to the procedure lab. The risks and benefits of the procedure as well as a full d escription of our services here and current unavailability of surgical backup were fully explained to the patient and/or their significant other prior to the catheterization. The Timeout was completed, verifying the correct patient and procedure. The patient's procedural site was prepped and draped in the usual fashion. Local anesthetic was given subcutaneously to right groin region with Lidocaine 2%. Using a modified Seldinger technique, arterial access was obtained via the right femoral artery, a 4 Fr sheath was inserted Left Coronary Artery selective angiography was performed in multiple views us ing a 4 Fr. JL5 catheter. Right Coronary Artery selective angiography was then performed in multiple views using a 4 Fr. 3DRC catheter. Left internal mammary artery graft to the LAD selective angiograph y was performed in multiple views using a 4 Fr. 3DRC catheter. Right Coronary Artery selective angiography was then performed in multiple views using a 4 Fr. AR MOD 2 catheter. Left Vent riculography was performed in MONTALVO projection using a 4 Fr. Pigtail catheter. LV to AO pullback pressu res were then recorded.The arterial sheath was pulled and manual compression applied until hemostasis is achieved. CORONARY ANGIOGRAPHY DOMINANCE: Right Dominant LEFT HEART ASSESSMENT Left Ventricular Ejection Fraction: by LV Gram 65 % Normal LV wall motion Normal Left Ventricular systolic function LVEDP: 6 mmHg Normal Left Ventricular End Diastolic Pressure LEFT MAIN: Angiographically normal LEFT ANTERIOR DESCENDING ARTERY: MID LAD: Mild luminal irregularities less than 30% CIRCUMFLEX ARTERY: MID CIRC: Mild luminal irregularities less than 30% DISTAL CIRC: Mild luminal irregularities less than 30% RAMUS: Moderate luminal irregularities up to 50%, ostial RIGHT CORONARY ARTERY: PROX RCA: Mild luminal irregularities less than 30% MID RCA: Moderate luminal irregularities up to 50% DISTAL RCA: Moderate luminal irregularities up to 50% GRAFTS: WILKES graft to the LAD is totally occluded COMPLICATIONS No Complications PROCEDURE MEDICATIONS Versed 2 mg IV Versed 2 mg IV Oxygen: 2 L/min via nasal cannula Nitro 200 mcg IC 12/13/2018 15:17:25 SUMMARY OF HEMODYNAMIC DATA Time AIR REST ECG 14:44:14 AO 113/64 (87) SA 15:07:51 LV 121/-15, 6 15:21:22 LV 120/-17, 6 15:21:28 LVp 119/-20, 0 15:21:34 AOp 107/67 (82) 15:21:40 15:37:26 Signed By Otf Saenz MD On 12/13/2018 15:38:34 Otf Saenz MD
[2018-12-13] MEDS: 0.9% Normal Saline 1,000 ML 150 ML IV (16:11)
[2018-12-13] MEDS: Atorvastatin Calcium 80 MG Tablet PO (21:56)
[2018-12-13] MEDS: Divalproex Sodium 250 MG Tablet 500 MG PO (21:56)
[2018-12-14 01:50] VITALS: BP 118/70; PULSE 54; RESP 18; TEMP 37.2; O2SAT 97
[2018-12-14 03:00] VITALS: PULSE 62
[2018-12-14 05:27] VITALS: BP 128/53; PULSE 60; RESP 18; TEMP 36.6; O2SAT 96
[2018-12-14] MEDS: Enoxaparin 40 MG/0.4 ML Syringe SC (05:29)
[2018-12-14] MEDS: Morphine 2 MG/ML Syringe IV (05:29)
[2018-12-14 06:50] VITALS: PULSE 61
[2018-12-14 07:45] VITALS: BP 117/67; PULSE 61; RESP 18; TEMP 36.7; O2SAT 97
--- NOTE | 2018-12-14 08:15 | NURSING ---
pt anxious at this time, dressed in street clothes, removed telemetry himself. states that he needs to leave [facility] because his mom is in the hospital in [place]. IV removed. talked with patient and asked if he could wait for discharge orders. explained that if not, he will have to sign AMA papers. Pt states he will wait. 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
--- NOTE | 2018-12-14 08:20 | DCINST_ITS ---
- Discharge Diagnoses Current Active Problems: Current Active and Chronic Problems (Last Updated 10/29/18 @ 10:19 by Bushra Bernal) Chest pain (Acute) You will use the following diet at home:: Cardiac Discharge Activity: - - Follow-up post cath instructions. Call your doctor if you observe: Shortness of breath, Dizziness, Fainting spells, Chest pain Allergies/Adverse Reactions: Allergies No Known Allergies Allergy (Verified 12/12/18 14:21) Medications to take at Discharge Nitroglycerin [Nitrostat] 0.4 mg SL PRN PRN #30 tab.subl 02/08/18 albuterol sulfate HFA 90 mcg/actuation aerosol inhaler 2 puff INHALATION Q4H PRN g 10/28/18 aspirin 81 mg tablet,delayed release 81 mg PO DAILY 10/28/18 lisinopril 2.5 mg tablet 2.5 mg PO DAILY 10/28/18 metoprolol succinate ER 25 mg tablet,extended release 24 hr 25 mg PO DAILY 10/28/18 omeprazole 20 mg capsule,delayed release 20 mg PO DAILY cap 10/28/18 clopidogrel 75 mg tablet 75 mg PO DAILY #30 tab 10/29/18 Atorvastatin Calcium 80 mg PO DAILY 12/12/18 Divalproex Sodium 500 mg PO QHS 12/12/18 Primary Care Physician: Natalia Xiao MD [Primary Care Provider] - Please follow up with your Primary Care Physician in: 1 Week Test Results: Test results from this visit will be discussed in further detail at your follow- up appointment, if applicable. Please Follow Up With: Otf Saenz MD When: Stress echo in 2 weeks Proposed Discharge Date: 12/14/18
--- NOTE | 2018-12-14 08:38 | PCM.DC.SUM ---
<Subha Paez - Last Filed: 12/14/18 09:45> Discharge Date and Diagnosis Date of Admission: 12/12/18 Date of Discharge: 12/14/18 - Primary Discharge Diagnosis Active and Suspected Problems (Last Updated 10/29/18 @ 10:19 by Bushra Bernal) 1. Noncardiac chest pain, history of CAD/critical ostial LAD, underwent single-vessel CABG with wilkes to the LAD in 2008 2. Hypertension 3. Hyperlipidemia 4. Tobacco dependence 5. History of polysubstance abuse 6. Chronic hepatitis C 7. Bipolar disorder - Secondary Discharge Diagnosis Chronic Problems (Last Updated 10/29/18 @ 10:19 by Bushra Bernal) Chronic hepatitis C (Chronic) Arteriosclerosis of coronary artery in patient with history of myocardial infarction (Chronic) Urgent WILKES to LAD post STEMI per Dr. Arthur Glass @ [facility] 02/03/2008 History of left heart catheterization (Chronic 12/13/18) Per Dr. William Persaud @ [facility]:Single vessel CAD with severe ostial LAD lesion. 12/13/2018:LEFT MAIN: Angiographically normal ; LEFT ANTERIOR DESCENDING ARTERY: MID LAD: Mild luminal irregularities less than 30%; CIRCUMFLEX ARTERY: MID CIRC: Mild luminal irregularities less than 30%; DISTAL CIRC: Mild luminal irregularities less than 30%; RAMUS: Moderate luminal irregularities up to 50%, ostial; RIGHT CORONARY ARTERY: PROX RCA: Mild luminal irregularities less than 30%; MID RCA: Moderate luminal irregularities up to 50%; DISTAL RCA: Moderate luminal irregularities up to 50%;GRAFTS: WILKES graft to the LAD is totally occluded per DJN @ [facility] History of non-ST elevation myocardial infarction (NSTEMI) (Chronic) History of ST elevation myocardial infarction (STEMI) (Chronic 02/03/08) S/P CABG x 1 (Chronic 02/03/08) Urgent WILKES to LAD post STEMI per Dr. Arthur Glass @ [facility] 02/03/2008 HTN (hypertension) (Chronic) HLD (hyperlipidemia) (Chronic) Polysubstance abuse (Chronic) Found unresponsive, revived with Narcan 10/25/2017, needle found in bathroom, pt denied abuse. drug screen 7/4 + for benzo's, Meth and cocaine. Has been a heroin addict in the past Smoking addiction (Chronic) 2 packs per day Hospital Course and Treatment Imaging Results: Diagnostic Data Chest X-Ray 12/12/18 15:00 IMPRESSION: No acute abnormality is seen. Prior midline sternotomy. Electronically Signed: Andrez Shipley, at 15:17 EST , Service support , Operations: None Procedures: None Summary of Care Provided: The patient is a 38 year old M admitted 12/12/2018 due to chest pain. 1. Noncardiac chest pain, history of CAD/critical ostial LAD, underwent single-vessel CABG with wilkes to the LAD in 2008. Troponin negative. EKG without evidence of acute ischemia. Continue aspirin, statin, Plavix, beta-kyalynn, lisinopril. Follows with Dr. Saenz. Cardiology consulted during admission. Patient underwent cardiac catheterization 12/13/2018 which showed nonobstructive coronary arteries. Plan is for patient to return in 2 weeks for stress echo to evaluate inferior/posterior wall. If stress echo abnormal, patient will return for elective PCI of RCA. 2. Hypertension-stable, continue lisinopril, metoprolol regimen. 3. Hyperlipidemia-continue statin. 4. Tobacco dependence-current 2+ pack per day smoker. Declines replacement patch. Encouraged cessation. 5. History of polysubstance abuse-denies current substance use. Urine tox positive for opiates and cannabinoids. 6. Chronic hepatitis C-outpatient follow-up. 7. Bipolar disorder-recently placed on Depakote. Recommend follow-up with PCP or psychiatry with addition of SSRI/antidepressant as his current regimen is not full treatment for both components of bipolar disorder. Do feel there is a psychiatric component to episodes of chest pain and feel patient should follow-up closely to further assess this. General: Alert, Oriented x3, Cooperative HEENT: Atraumatic, PERRLA, EOMI, Normocephalic Neck: Supple, No JVD, Negative Carotid Bruits Lungs: Clear to auscultation, Normal air movement Cardiovascular: Regular rate, Regular Rhythm, Normal S1, Normal S2, No murmurs Abdomen: Bowel Sounds Present, Soft, Non Tender, Non-Distended Extremities: No clubbing, No cyanosis, No edema, Capillary Refill Less than 3 Seconds Skin: No rashes, No breakdown Musculoskeletal: No Tenderness to Palpation of Joints or Extremities Neurological: Cranial nerves II-XII grossly intact, Neuro grossly intact Psych/Mental Status: Normal Affect, Appropriate Patient seen and examined prior to discharge. Physical assessment as noted above. Patient is stable for discharge with follow up recommendations as noted above. This patient was seen by ROSE Jon under the supervision of Dr. Ricardo. - Physical Exam Vitals/I&O's: Vital Signs Temp Pulse Resp BP Pulse Ox 98.1 F 61 18 117/67 97 12/14/18 07:45 12/14/18 07:45 12/14/18 07:45 12/14/18 07:45 12/14/18 07:45 Oxygen Flow Rate (L/min) 2 Oxygen Delivery Method Room Air Weight: 168 lb 13.985 oz Body Mass Index (BMI) 29.0 Intake and Output for Last 24 Hours 12/12/18 12/13/18 12/14/18 23:59 23:59 23:59 Intake Total 312.5 / 312.5 1332.5 / 2052.5 960 / 960 Output Total 700 / 950 1250 / 1250 Balance 312.5 / 312.5 632.5 / 1102.5 -290 / -290 Discharge Diet: Low fat/ Low Cholesterol Discharge Activity: - - Follow-up post cath instructions. Call your doctor if you observe: Shortness of breath, Dizziness, Fainting spells, Chest pain Home Medications: Medications to take at Discharge Nitroglycerin [Nitrostat] 0.4 mg SL PRN PRN #30 tab.subl 02/08/18 albuterol sulfate HFA 90 mcg/actuation aerosol inhaler 2 puff INHALATION Q4H PRN g 10/28/18 aspirin 81 mg tablet,delayed release 81 mg PO DAILY 10/28/18 lisinopril 2.5 mg tablet 2.5 mg PO DAILY 10/28/18 metoprolol succinate ER 25 mg tablet,extended release 24 hr 25 mg PO DAILY 10/28/18 omeprazole 20 mg capsule,delayed release 20 mg PO DAILY cap 10/28/18 clopidogrel 75 mg tablet 75 mg PO DAILY #30 tab 10/29/18 Atorvastatin Calcium 80 mg PO DAILY 12/12/18 Divalproex Sodium 500 mg PO QHS 12/12/18 Primary Care Physician: Natalia Xiao MD [Primary Care Provider] - Please follow up with your Primary Care Physician in: 1 Week Please Follow Up With: stress echo When: Stress echo in 2 weeks Disposition: Home Minutes spent on discharge:: 35 Patient Condition:: Stable Medical Necessity - Tobacco Use Smoking Status: Current every day smoker Tobacco Use: Cigarettes Meaningful Use Info Meaningful Use Diagnoses (Choose all that apply): None applicable <Jacoby Ricardo - Last Filed: 12/14/18 11:43> Discharge Date and Diagnosis - Secondary Discharge Diagnosis Chronic Problems (Last Updated 12/14/18 @ 08:40 by RAFI JonC) Chronic hepatitis C (Chronic) Arteriosclerosis of coronary artery in patient with history of myocardial infarction (Chronic) Urgent WILKES to LAD post STEMI per Dr. Arthur Glass @ [facility] 02/03/2008 History of left heart catheterization (Chronic 12/13/18) Per Dr. William Persaud @ [facility]:Single vessel CAD with severe ostial LAD lesion. 12/13/2018:LEFT MAIN: Angiographically normal ; LEFT ANTERIOR DESCENDING ARTERY: MID LAD: Mild luminal irregularities less than 30%; CIRCUMFLEX ARTERY: MID CIRC: Mild luminal irregularities less than 30%; DISTAL CIRC: Mild luminal irregularities less than 30%; RAMUS: Moderate luminal irregularities up to 50%, ostial; RIGHT CORONARY ARTERY: PROX RCA: Mild luminal irregularities less than 30%; MID RCA: Moderate luminal irregularities up to 50%; DISTAL RCA: Moderate luminal irregularities up to 50%;GRAFTS: WILKES graft to the LAD is totally occluded per DJN @ [facility] History of non-ST elevation myocardial infarction (NSTEMI) (Chronic) History of ST elevation myocardial infarction (STEMI) (Chronic 02/03/08) S/P CABG x 1 (Chronic 02/03/08) Urgent WILKES to LAD post STEMI per Dr. Arthur Glass @ [facility] 02/03/2008 HTN (hypertension) (Chronic) HLD (hyperlipidemia) (Chronic) Polysubstance abuse (Chronic) Found unresponsive, revived with Narcan 10/25/2017, needle found in bathroom, pt denied abuse. drug screen 08/08 + for benzo's, Meth and cocaine. Has been a heroin addict in the past Smoking addiction (Chronic) 2 packs per day Hospital Course and Treatment Summary of Care Provided: This patient was seen in conjunction with Subha VIRK. I have independently interviewed and examined the patient and reviewed pertinent history, examination findings, laboratory and plan of management. I have reviewed the note and agree with the documented findings with the few additional points. In brief, patient is admitted for chest pain with history of STEMI in status post WILKES to LAD CABG 1 vessel came to ER with chest pain intermittent. Chest pain is midsternal. EKG does not show evidence of ischemia. Troponins negative. On medications as mentioned above. Dr. Saenz, relocation commissioner was consulted. Patient had cardiac cath on 12/13/18. Cardiac cath found 50 to 60% stenosis in the RCA. No major stenosis/thrombosis to warrant PCI. Plan for stress test after 2 weeks of discharge. Other comorbidities as listed above. Blood pressure is stable at 128/53, 170/67 heart rate is 60s, normal sinus rhythm. Hemodynamically stable. Discharge medication reconciliation done. Discharge follow-up instructions completed. Discharge process discussed with the patient and all questions were answered to patient's satisfaction.. Total time spent, exact 35 minutes on discharge meds reconciliation, examination, review of imaging and blood test and discussion with the patient on follow-up instructions. I have discussed my assessment with ENGAGEMENT LIAISONSubha and orders have been reviewed. [] Subjective: Seen and examined. Patient wants to go home. Significant anxiety disorder. No fever or chills. Heart rate in 60s. No hypoxia. Hemodynamically stable. Objective: General: Alert, Oriented x3, Cooperative HEENT: Atraumatic, PERRLA, EOMI, Normocephalic Neck: Supple, No JVD, Negative Carotid Bruits Lungs: Clear to auscultation, Normal air movement, No rhonchi, No wheeze, No rales Cardiovascular: Regular rate, Regular Rhythm, Normal S1, Normal S2, No murmurs, No Ectopic Activity Abdomen: Bowel Sounds Present, Soft, Non Tender, Non-Distended Extremities: No edema, Capillary Refill Less than 3 Seconds, No Calf Tenderness Skin: No rashes, No breakdown Musculoskeletal: No Tenderness to Palpation of Joints or Extremities, Arthritic Changes Neurological: Cranial nerves II-XII grossly intact Psych/Mental Status: Normal Affect, Appropriate - Physical Exam Vitals/I&O's: Vital Signs Temp Pulse Resp BP Pulse Ox 98.1 F 61 18 117/67 97 12/14/18 07:45 12/14/18 07:45 12/14/18 07:45 12/14/18 07:45 12/14/18 07:45 Oxygen Flow Rate (L/min) 2 Oxygen Delivery Method Room Air Weight: 168 lb 13.985 oz Body Mass Index (BMI) 29.0 Intake and Output for Last 24 Hours 12/12/18 12/13/18 12/14/18 23:59 23:59 23:59 Intake Total 312.5 / 312.5 1332.5 / 2052.5 960 / 960 Output Total 700 / 950 1250 / 1250 Balance 312.5 / 312.5 632.5 / 1102.5 -290 / -290 Code Visit Inpatient E&M: [id number] [facility] Hosp
== END 2018-12-14 08:21 | disposition home or self-care (01) ==
LOC: ED 15:57 → PCU 17:09
PROVIDERS: Hospitalist; Nurse Practitioner Family; Admitting Provider Family Medicine; Emergency Provider Emergency Medicine; Family Provider Internal Medicine; PCP Internal Medicine; Referring Provider Family Medicine; Visit Provider Internal Medicine
DX: R07.89 Other chest pain (principal); I25.10 Atherosclerotic heart disease of native coronary artery without angina pectoris; R94.31 Abnormal electrocardiogram [ECG] [EKG]; R06.02 Shortness of breath; R42 Dizziness and giddiness; E78.5 Hyperlipidemia, unspecified; I10 Essential (primary) hypertension; B18.2 Chronic viral hepatitis C; I25.2 Old myocardial infarction; F17.210 Nicotine dependence, cigarettes, uncomplicated; F31.9 Bipolar disorder, unspecified; K21.9 Gastro-esophageal reflux disease without esophagitis; Z79.899 Other long term (current) drug therapy; Z79.82 Long term (current) use of aspirin; Z79.02 Long term (current) use of antithrombotics/antiplatelets; Z95.1 Presence of aortocoronary bypass graft; F19.11 Other psychoactive substance abuse, in remission
CPT/HCPCS: 36415; 71045; 80048; 80061; 80307; 83735; 84484; 85025; 85610; 85730; 93005; 93459; 96361; 96365; 96372; 96375; 96376; 99152; 99153; 99218; 99285; 99406; J7030; J7040; Q9967; A4216; C1769; C1894; G0378; J2405

== ENCOUNTER 2018-12-26 21:24 | Emergency (ER) | payer MEDICAID, SELFPAY ==
[2018-12-12 17:23] VITALS: BMI 29.0
[2018-12-26 21:25] VITALS: BP 124/80; PULSE 90; RESP 18; TEMP 36.8; O2SAT 97; BMI 30.7
--- NOTE | 2018-12-26 22:27 | RAD_ITS ---
STUDY: X-RAY CHEST REASON FOR EXAM: Male, 38 years old. Hemoptysis TECHNIQUE: Frontal and lateral views of the chest. COMPARISON: December 12, 2018 FINDINGS: Sternotomy wires. The lungs are clear and expanded. There is no demonstrated pleural abnormality. Normal size heart. Normal mediastinum and harry. Normal visualized pulmonary arteries. Normal visualized aortic arch and descending thoracic aorta. Normal visualized thoracic spine. Normal visualized ribs, clavicles, and shoulders. There is no demonstrated abnormality of the visualized soft tissue structures of the upper abdomen. RAD/Chest PA and Lateral IMPRESSION: No acute disease Electronically Signed: Jak Gardner MD at 22:43 EST , Service support ,
[2018-12-26 22:34] LABS: Basophil# 0.05 X10^3/uL; Basophil% 0.5 % (0-1); Eosinophil# 0.29 X10^3/uL; Eosinophils% 2.9 % (0-5); Hemoglobin 15.3 g/dL (13.0-16.5); Lymphocyte % 40.7 % (19-41); Mean Corp Hgb Conc 34.8 g/dL (32-36); Mean Corpuscular Hgb 31.8 pg (27.0-32.0); Mean Corpuscular Volume 91.5 fL (80-94); Mean Platelet Vol. 9.8 fl (6.2-12.0); Monocyte# 0.59 X10^3/uL; Monocyte% 5.9 % (0-10); NRBC Flagged by Analyzer 0 % (0-5); Neutrophil # 5.01 X10^3/uL (2.7-7.7); Neutrophil % 49.7 % (47-70); POSITIVE MORPHOLOGY YES; Platelet Count 249 K/mm3 (150-450); RBC Distribution Width SD 40.5 fl (35.1-43.9); Red Blood Count 4.81 M/mm3 (4.6-6.2); White Blood Count 10.1 K/mm3 (4.4-11.0)
[2018-12-26 22:40] LABS: Differential Indicated SCAN CRITERIA MET
[2018-12-26 22:42] LABS: International Normalized Ratio 1.1; Prothrombin Time (Protime)PT. 14.3 SECONDS (11.7-14.9)
[2018-12-26 22:43] LABS: Partial Thromboplast Time 28.1 Seconds (24.1-36.2)
--- NOTE | 2018-12-26 22:50 | ED.VISSUMM ---
- ER Visit Summary Date of Service: 12/26/18 Chief Complaint: Hemoptysis History of Present Illness: The patient is a 38 M who presents with hemoptysis that began tonight. Patient states he had been coughing and noted some blood tonight. Patient states it is approximately a teaspoonful of blood whenever he coughs up. Patient states he does have pain in the right side of his chest. Patient denies any fevers or chills. Patient does admit to some shortness of breath. Patient is on Plavix for coronary artery disease. Patient also takes aspirin daily. Physical Examination: Vital signs are stable. Patient is afebrile. Patient is in no acute distress. Oral mucosa is pink and moist. Neck is supple. Trachea is midline. There is no JVD. Heart was regular rate and rhythm. Lungs are clear and equal bilaterally. Abdomen is soft. Bowel sounds are normal. There is no tenderness. Cranial nerves II through XII are intact. There are no focal motor or sensory deficits noted. Extremities are intact. There is no calf tenderness or edema. Test Results: CBC was normal. Basic metabolic profile showed a mild hypokalemia 3.3 and a chloride of 108. PT with INR and PTT were normal. PA and lateral chest x-rays obtained. There is no acute cardiopulmonary process. D-dimer was obtained and was elevated at 1.31. CTA of the chest was obtained. There is no acute pulmonary embolism or aortic dissection. Emergency Department Course and Treatment: Patient was given an injection of Toradol here. Patient is feeling better on reevaluation. Patient was instructed to follow-up with his primary care physician in 5 to 7 days. Patient understood and was agreeable with the plan. All questions were answered. Disposition: Discharge home Impression: 1. Hemoptysis This note was generated with [employer] dictation software. It may contain incorrect words, spelling, and punctuation that were not noted in review of the chart prior to signing ED Disposition - Plan for ED Patient: Disposition: Home or Assisted Living Diagnosis: Hemoptysis Instructions: Hemoptysis Referrals: Natalia Xiao MD [Primary Care Provider] - 3-5 Days
[2018-12-26 22:52] LABS: D-Dimer Quantitative (DVT/PE) 1.31 FEU/ug/m (0.27-0.49)
[2018-12-26 22:54] LABS: Anion Gap 7 (5-15); BUN 8 mg/dL (7-18); BUN/Creat Ratio 7.7 RATIO (10-20); Calcium,Total 8.9 mg/dL (8.5-10.1); Chloride 108 mmol/L (98-107); Creatinine, Serum 1.04 mg/dL (0.70-1.30); EST Glomerular Filtration Rate 86 mL/min (>60); Est Glom Filt Rate - Afr Amer 104 mL/min (>60); Estimated Creatinine Clearance 82.22 ml/min; Glucose 104 mg/dL (74-106); Potassium 3.3 mmol/L (3.5-5.1); Sodium Level 141 mmol/L (136-145)
--- NOTE | 2018-12-26 22:54 | CT_ITS ---
STUDY: CTA CHEST REASON FOR EXAM: Male, 38 years old. Hemoptysis RADIATION DOSAGE (If Supplied By Facility): CTDIvol = ( 12.52 ) mGy, DLP = ( 351.45 ) mGycm TECHNIQUE: The examination was performed with the intravenous administration of IV 100mL Isovue-370 100ML. Post-processing of the angiographic images was performed, with multiplanar reformation and 3D reconstruction. Individualized dose optimization techniques were used for this CT. COMPARISON: Chest x-ray December 26, 2018 FINDINGS: Normal enhancement of the main pulmonary artery and right and left pulmonary arteries. Normal enhancement of the bilateral peripheral pulmonary arteries. There is no demonstrated pulmonary embolism. Normal thoracic aorta and visualized great vessels. There is no demonstrated aortic dissection. Normal heart and pericardium. Normal mediastinum. Normal hilar regions. Normal visualized trachea and bronchi. The lungs are well expanded. Normal pulmonary parenchyma. Normal pleura. Normal chest wall structures. Normal osseous structures. Normal visualized upper abdomen. CT/CTA Chest W/WO Contrast IMPRESSION: Normal CTA chest examination, without a demonstrated pulmonary embolism or arterial dissection. Electronically Signed: Jak Gardner MD at 23:42 EST , Service support ,
[2018-12-26 22:57] LABS: Anisocytosis RARE; Macrocytosis RARE; Platelet Estimate ADEQUATE (ADEQ); Red Cell Morphology N CHROM NORMAL (NORM C&C)
[2018-12-27] MEDS: Ketorolac 30 MG/ML Syringe IV (00:06)
[2018-12-27 00:27] VITALS: RESP 18
[2018-12-27 10:55] LABS: Pathologist Review Reviewed
== END 2018-12-27 00:27 | disposition home or self-care (01) ==
PROVIDERS: Emergency Provider Emergency Medicine; Family Provider Internal Medicine; PCP Internal Medicine
DX: R04.2 Hemoptysis (principal); I25.10 Atherosclerotic heart disease of native coronary artery without angina pectoris; I10 Essential (primary) hypertension; F17.200 Nicotine dependence, unspecified, uncomplicated; F12.90 Cannabis use, unspecified, uncomplicated; Z79.02 Long term (current) use of antithrombotics/antiplatelets; Z79.82 Long term (current) use of aspirin; Z79.899 Other long term (current) drug therapy; Z86.73 Personal history of transient ischemic attack (TIA), and cerebral infarction without residual deficits
CPT/HCPCS: 71046; 71275; 80048; 85025; 85379; 85610; 85730; 96374; 99283; Q9967; A4216

== ENCOUNTER 2018-12-28 18:11 | Emergency (ER) | payer MEDICAID, SELFPAY ==
[2018-12-28 18:12] VITALS: BP 140/78; PULSE 76; RESP 18; TEMP 36.4; O2SAT 99; BMI 28.0
[2018-12-28 18:22] VITALS: BP 140/78; PULSE 76; RESP 18; TEMP 36.4; O2SAT 99
--- NOTE | 2018-12-28 19:07 | RAD_ITS ---
STUDY: X-RAY CHEST REASON FOR EXAM: Male, 38 years old. Cough with hemoptysis. TECHNIQUE: 2 views COMPARISON: Prior chest radiograph of December 26, 2018 and chest CTA of December 26, 2018. FINDINGS: The lungs are clear and expanded. There is no demonstrated pleural abnormality. Normal size heart. Status post prior midline sternotomy. Normal visualized pulmonary arteries. Normal visualized aortic arch and descending thoracic aorta. Normal visualized thoracic spine. Normal visualized ribs, clavicles, and shoulders. There is no demonstrated abnormality of the visualized soft tissue structures of the upper abdomen. RAD/Chest PA and Lateral IMPRESSION: No acute cardiopulmonary findings or changes. Negative for new consolidation, focal atelectasis, pleural effusion or cardiomegaly. Status post prior midline sternotomy. Electronically Signed: Sindy Gonzalez MD at 19:31 EST , Service support ,
--- NOTE | 2018-12-28 19:08 | ED.DCSUM_ITS ---
- ER Visit Summary Date of Service: 12/28/18 Chief Complaint: Hemoptysis, chest, and upper abdominal pain History of Present Illness: The patient is a 38 M who presents with hemoptysis, chest, and upper abdominal pain that has been getting worse over the past 3 days. Patient was seen here 2 days ago and had a CTA of his chest which was normal. Patient had lab work done at that time which was normal. Patient states he followed up with his primary care physician yesterday who did additional lab work which was all unremarkable per the patient. Patient states he is coughing up more blood today. Patient states he has pain over the upper abdomen and chest. Patient states he also has pain in his back with this. Physical Examination: Vital signs are stable. Patient is afebrile. Patient is in no acute distress. Oral mucosa is pink and moist. Neck is supple. Trachea is midline. There is no JVD. Heart was regular rate and rhythm. Lungs are clear and equal bilaterally. Abdomen is soft and nontender. Bowel sounds are normal. Cranial nerves II through XII are intact. There are no focal motor or sensory deficits noted. Extremities are intact x4. There is no calf tenderness or edema. Test Results: CBC was normal. Basic metabolic profile showed a potassium of 3.3. INR was normal at 1.1 and PTT was normal at 98.1. PA and lateral chest x- ray was obtained. There is no acute cardiopulmonary process noted. Emergency Department Course and Treatment: Patient's cath report was reviewed from 12/14/2018. There is near complete occlusion of his WILKES graft to the left anterior descending artery. There is also moderate stenosis up to 50% of the right coronary artery and circumflex artery. Given these findings, I feel that the patient is best served to continue taking his Plavix. Patient was in structed to follow-up with his stress test as scheduled. Patient understood and was agreeable with the plan. All questions were answered. Disposition: Discharge home Impression: Hemoptysis This note was generated with [employer] dictation software. It may contain incorrect words, spelling, and punctuation that were not noted in review of the chart prior to signing ED Disposition - Plan for ED Patient: Disposition: Home or Assisted Living Diagnosis: Hemoptysis Instructions: Hemoptysis Referrals: Natalia Xiao MD [Primary Care Provider] - Keep Almita appointment
[2018-12-28 19:11] LABS: Absolute Lymphocyte Count 3.27 X10^3/uL (0.83-4.51); Absolute Neutrophil Count 6.3 X10^3/uL (2.0-7.7); Basophil# 0.04 X10^3/uL; Basophil% 0.4 % (0-1); Eosinophil# 0.14 X10^3/uL; Eosinophils% 1.3 % (0-5); Hematocrit 44.5 % (40-54); Hemoglobin 15.4 g/dL (13.0-16.5); Lymphocyte # 3.27 X10^3/ul (4.0); Lymphocyte % 31.5 % (19-41); Mean Corp Hgb Conc 34.6 g/dL (32-36); Mean Corpuscular Hgb 31.8 pg (27.0-32.0); Mean Corpuscular Volume 91.9 fL (80-94); Mean Platelet Vol. 9.5 fl (6.2-12.0); Monocyte# 0.55 X10^3/uL; Monocyte% 5.3 % (0-10); NRBC Flagged by Analyzer 0 % (0-5); Neutrophil # 6.33 X10^3/uL (2.7-7.7); Platelet Count 242 K/mm3 (150-450); RBC Distribution Width CV 12.4 % (11.6-14.6); RBC Distribution Width SD 41.3 fl (35.1-43.9); Red Blood Count 4.84 M/mm3 (4.6-6.2); White Blood Count 10.4 K/mm3 (4.4-11.0)
[2018-12-28 19:19] LABS: International Normalized Ratio 1.1; Prothrombin Time (Protime)PT. 14.1 SECONDS (11.7-14.9)
[2018-12-28 19:20] LABS: Partial Thromboplast Time 28.1 Seconds (24.1-36.2)
[2018-12-28 19:26] LABS: Anion Gap 5 (5-15); BUN 9 mg/dL (7-18); BUN/Creat Ratio 10.5 RATIO (10-20); Calcium,Total 8.7 mg/dL (8.5-10.1); Chloride 107 mmol/L (98-107); Creatinine, Serum 0.86 mg/dL (0.70-1.30); EST Glomerular Filtration Rate 107 mL/min (>60); Est Glom Filt Rate - Afr Amer 130 mL/min (>60); Estimated Creatinine Clearance 99.43 ml/min; Glucose 88 mg/dL (74-106); Potassium 3.3 mmol/L (3.5-5.1); Sodium Level 140 mmol/L (136-145)
--- NOTE | 2018-12-28 20:49 | ED.RN ---
PT PUT CALL LIGHT ON, THIS RN RESPONDED, PT WANTED IV REMOVED. RN REMOVED IV AND TOLD PT I WOULD BE BACK SOON D/C INSTRUCTIONS WERE AVAILABLE. WHEN RN WENT TO D/C PT, HE AND FAMILY MEMBER WERE NOT IN ROOM.
== END 2018-12-28 20:52 | disposition home or self-care (01) ==
PROVIDERS: Emergency Provider Emergency Medicine; Family Provider Internal Medicine; PCP Internal Medicine
DX: R04.2 Hemoptysis (principal); I25.10 Atherosclerotic heart disease of native coronary artery without angina pectoris; F12.90 Cannabis use, unspecified, uncomplicated; F17.200 Nicotine dependence, unspecified, uncomplicated; Z95.1 Presence of aortocoronary bypass graft; Z79.82 Long term (current) use of aspirin; Z79.02 Long term (current) use of antithrombotics/antiplatelets; Z79.899 Other long term (current) drug therapy
CPT/HCPCS: 71046; 80048; 85025; 85610; 85730; 99283; A4216

== ENCOUNTER → 2019-02-17 12:49 | Outpatient (CLI) | payer MEDICAID, SELFPAY ==
[2018-10-29 09:59] VITALS: BMI 27.1
--- NOTE | 2019-02-17 12:50 | STE_ITS ---
Stress Results Protocol: Dobutatmine Stress Echo Maximum Predicted HR: 184 bpm Target HR: 156 bpm % Maximum Predicted HR: 88 % DurationHeart Rate Stage (mm:ss) (bpm) BP Dose Comment BASELINE 61 127/67 STAGE 1 3:00 56 144/66 10.00 STAGE 2 3:00 73 171/73 20.00 STAGE 3 3:00 110 / 30.00 STAGE 4 4:26 162 182/96 40.000.75 MG ATROPINE RECOVERY 98 148/103 Stress Duration: 13:26 mm:ss Maximum Stress HR: 162 bpm Baseline Echocardiogram Findings The estimated ejection fraction is 65 %. Stress Echo Wall motion Data Resting WM Intermediate WM Stress WM Resting Wall Motion Wall Motion Stress No regional wall motion No regional wall motion abnormalities noted. abnormalities noted. EKG Data The baseline ECG displays normal sinus rhythm. The patient was titrated from 10 mcg to a maximum of 40 mcg of dobutamine during the stress. The maximum heart rate attained was 162 beats per minute. This was 88% of maximum predicted heart rate. At peak infusion, upsloping ST changes only were noted, which did not meet the criteria for ischemia. No arrhythmias noted. No clinical angina was noted. Interpretation Summary The estimated ejection fraction is 65 %. Normal, adequate, dobutamine echocardiogram. Negative for ischemia by EKG and echocardiographic criteria. No anginal symptoms noted. No arrhythmias noted. Hypertensive blood pressure response to dobutamine. Test terminated due to the attainment target heart rate. Final LVEF is 75%. Patient tolerated procedure well. No complications noted. Ordering Physician: Otf Saenz Referring Physician: Otf Saenz
== END ==
PROVIDERS: Family Provider Internal Medicine; PCP Internal Medicine; Referring Provider Internal Medicine Cardiovascular Disease; Visit Provider Internal Medicine Cardiovascular Disease
DX: R07.9 Chest pain, unspecified (principal); R06.09 Other forms of dyspnea; I25.10 Atherosclerotic heart disease of native coronary artery without angina pectoris; I10 Essential (primary) hypertension; E78.5 Hyperlipidemia, unspecified; Z95.1 Presence of aortocoronary bypass graft
CPT/HCPCS: 93017; 93350; J7040; A4216

== ENCOUNTER 2019-04-07 12:50 | Emergency (ER) | payer MEDICAID, SELFPAY ==
[2019-04-07 12:51] VITALS: BP 152/80; PULSE 61; RESP 14; TEMP 36.8; O2SAT 98; BMI 30.4
--- NOTE | 2019-04-07 13:15 | RAD_ITS ---
STUDY: X-RAY - RIGHT SHOULDER REASON FOR EXAM: Male, 39 years old. INJURY LAST WEEK, [facility] TECHNIQUE: 4 view(s) of the shoulder. COMPARISON: None. FINDINGS: Normal glenohumeral articulation. Normal acromioclavicular joint. Normal acromion. Normal humeral head and visualized proximal humerus. The soft tissue structures are unremarkable. Normal visualized pulmonary apex. RAD/Shoulder min 2 Views IMPRESSION: Normal x-ray examination of the shoulder. Electronically Signed: Andrez Shipley, at 13:56 EST , Service support ,
--- NOTE | 2019-04-07 13:15 | ED.VISSUMM ---
- ER Visit Summary Date of Service: 04/07/19 Chief Complaint: Right shoulder pain History of Present Illness: The patient is a 39 M who presents with right shoulder pain that is been getting worse over the past week. Patient states he was moving a dryer with his son when his son dropped his side of the dryer and the full weight of the dryer went onto his arm. Patient states he felt pulling at that time. Patient states the pain is been getting progressively worse. Patient states the pain is worse with movement. Patient admits to some intermittent tingling and weakness due to the pain. Patient describes the pain as sharp. Patient denies any other injuries. Physical Examination: Vital signs are stable. Patient is afebrile. Patient is in no acute distress. Musculoskeletal exam reveals tenderness over the right shoulder and scapula. There is no bony crepitance or step-off. There is spasm of the parascapular muscles. Range of motion was limited in all motions of the right shoulder secondary to pain. There is no obvious deformity noted. Radial pulses are equal bilaterally. Sensation was intact to light touch in the radial, median, ulnar, and axillary areas. Strength is 5/5 bilaterally in the radial, median, ulnar areas. Test Results: X-rays of the right shoulder were obtained. There is no acute fracture or dislocation. This was interpreted by the radiologist and myself. Emergency Department Course and Treatment: Patient was given an ice pack. Patient was given a dose of ibuprofen. Patient was instructed to use ice to the area. Patient was given a prescription for Naprosyn. Patient was instructed to follow-up with his primary care physician as scheduled. Patient understood and was agreeable with the plan. All questions were answered. Disposition: Discharge home Impression: Right shoulder strain This note was generated with [employer] dictation software. It may contain incorrect words, spelling, and punctuation that were not noted in review of the chart prior to signing ED Disposition - Plan for ED Patient: Disposition: Home or Assisted Living Diagnosis: Right shoulder strain Instructions: Shoulder Sprain Prescriptions: Naproxen [Naprosyn] 500 mg PO BID PRN #20 tab Prescription Printed Referrals: Natalia Xiao MD [Primary Care Provider] - Keep Almita appointment
[2019-04-07] MEDS: Ibuprofen 600 MG Tablet PO (13:20)
== END 2019-04-07 15:02 | disposition home or self-care (01) ==
PROVIDERS: Emergency Provider Emergency Medicine; PCP Internal Medicine
DX: S46.911A Strain of unspecified muscle, fascia and tendon at shoulder and upper arm level, right arm, initial encounter (principal); X58.XXXA Exposure to other specified factors, initial encounter; Y93.89 Activity, other specified; Y92.9 Unspecified place or not applicable; I25.10 Atherosclerotic heart disease of native coronary artery without angina pectoris; Z95.1 Presence of aortocoronary bypass graft; Z79.82 Long term (current) use of aspirin; Z72.0 Tobacco use
CPT/HCPCS: 73030; 99283

== ENCOUNTER 2021-06-18 10:00 | Emergency (ER) | payer MEDICAID, SELFPAY ==
[2021-06-18 10:02] VITALS: BP 149/95; PULSE 92; RESP 16; TEMP 36.4; O2SAT 95; BMI 33.9
--- NOTE | 2021-06-18 10:11 | CT_ITS ---
STUDY: CT BRAIN WITHOUT CONTRAST REASON FOR EXAM: Male, 41 years old. trauma RADIATION DOSAGE (If Supplied By Facility): CTDIvol = ( 44.99 ) mGy, DLP = ( 796.11 ) mGycm TECHNIQUE: Transaxial CT imaging of the brain was performed without administration of intravenous contrast material. Individualized dose optimization techniques were used for this CT. COMPARISON: No relevant priors. FINDINGS: Normal soft tissue structures. Normal calvarium. Normal size ventricles and extra-axial spaces for the patient''s age. Normal white matter tracts of the cerebral hemispheres. Normal basal ganglia and thalami. Normal brainstem. Normal cerebellum. There is no intracranial hemorrhage. There are no findings of an acute ischemic infarction. There is bilateral maxillary and ethmoid sinus disease. CT/Brain/Head without Contrast IMPRESSION: There is bilateral maxillary and ethmoid sinus disease. Otherwise unremarkable CT scan of the brain. Electronically Signed: Otf Lee MD at 11:08 EDT ,
--- NOTE | 2021-06-18 10:12 | EKG12_ITS ---
Test Reason : SOB Blood Pressure : / mmHG Vent. Rate : 069 BPM Atrial Rate : 069 BPM P-R Int : 138 ms QRS Dur : 072 ms QT Int : 390 ms P-R-T Axes : 061 043 016 degrees QTc Int : 417 ms Normal sinus rhythm Septal infarct , age undetermined Abnormal ECG Confirmed by OMAR CASAS, CHERRI ([id number]), magazine editor JANAY CRUZ ([id number]) on 06/20/2021 1:54:39 PM Referred By: ANKITA Confirmed By:CHERRI NELSON MD
--- NOTE | 2021-06-18 10:13 | EDS_ITS ---
HPI History of Present Illness Chief Complaint: Shortness of Breath Detail of Chief Complaint: Shortness of breath and head injury and tick to abdomen Informant: patient Narrative Narrative: Patient presents to the emergency department with multiple complaints. Patient states that 4 days ago he was coming [place] of the [place] where he was mushroom [place] and slipped on a log and hit his head on a large log on the ground. Patient was knocked unconscious but unsure for how long. Patient states that he is had a mild headache and is just kind of felt swimmy. Patient has had nausea. Patient states that he has been sleeping all the time. Patient also complains of some shortness of breath over the last week with some exertional dyspnea. Patient has had a cough that at times productive of some brown phlegm. He has had some chest tightness. Patient has history of one- vessel CABG in 2008. Patient also noticed some itching to his lower abdomen today noted that he had a tick in his abdomen. Patient states that he has had several other ticks here recently that he removed himself from the abdomen. Patient's had some chills at night. He denies any fevers. Prior similar symptoms: No PFSH PFSH Medical History Arteriosclerosis of coronary artery in patient with history of myocardial infarction Chest pain Chronic hepatitis C Dyspnea on exertion History of non-ST elevation myocardial infarction (NSTEMI) History of ST elevation myocardial infarction (STEMI) (02/03/08) HLD (hyperlipidemia) HTN (hypertension) Smoking addiction Home Medications aspirin 81 mg tablet,delayed release 81 mg PO DAILY 10/28/18 [History Last Taken 12/12/18] doxycycline monohydrate 100 mg PO BID #28 capsule 06/18/21 [Rx Last Taken Unknown] Allergy/AdvReac Type Severity Reaction Status Date / Time No Known Allergies Allergy Verified 06/18/21 10:02 Family History Father CAD (coronary artery disease) Hypertension Hyperlipidemia COPD (chronic obstructive pulmonary disease) Sudden cardiac Stented coronary artery S/P CABG x 3 Surgical History History of left heart catheterization (12/13/18) S/P CABG x 1 (02/03/08) Social History Smoking Status: Current every day smoker tobacco type: cigarettes ROS ROS ED Constitutional Constitutional ED: Reports systems reviewed and no addt'l complaints, except as documented; Denies body ache(s), change in weight or chills Eyes Eyes: Denies acute decrease in peripheral vision, change in vision, double vision or loss of vision ENT ENT ED: Reports none; Denies ear pain, lip swelling, loss taste/smell, neck pain, otalgia or sore throat Cardiovascular Cardiovascular: Reports none and chest pain; Denies abdominal pain, chest pain with activity, leg edema, lightheadedness, palpitations, rapid heart rate or syncope Respiratory/Chest Respiratory/Chest: Reports none, cough, dyspnea and sputum; Denies change in mental status, dry cough, hemoptysis, shortness of breath at rest or shortness of breath with exertion Gastrointestinal Gastrointestinal: Reports none; Denies abdominal pain, change in stool character, diarrhea, hematemesis, hematochezia, melena, rectal bleeding or vomiting Genitourinary Genitourinary ED: Reports none; Denies abdominal discomfort, anuria, dysuria, genital pain or polyuria Musculoskeletal Musculoskeletal: Reports none; Denies arthralgias, back pain, difficulty walking, extremity pain, muscle weakness or myalgias Integumentary Reports none and other Details: Tick to right lower quadrant of abdomen ; Denies abscess or rash Neurologic Neurologic: Reports none and headache(s); Denies abnormal gait, confusion, focal weakness, frequent falls, loss of vision, numbness, paresthesias, radicular pain, vertigo or weakness Psychiatric Psychiatric: Reports systems reviewed and no addt'l complaints, except as documented and none; Denies behavioral changes, confusion, difficulty concentrating, hallucinations, suicidal ideation, tactile hallucinations or visual hallucinations Endocrine Endocrinology: Denies none, cold intolerance, excessive sweating, fatigue or heat intolerance Hematologic/Lymphatic Hematologic/Lymphatic: Reports none; Denies anemia, easy bleeding or easy bruising Allergic/Immunologic Allergic/Immunologic ED: Denies as per HPI, none, lip swelling, mouth swelling, throat swelling, tongue swelling or hives EXAM Physical Exam Const Vital Signs: 06/18/21 10:02 06/18/21 10:17 06/18/21 10:38 Temperature 97.6 F L Temperature Source Temporal Pulse Rate 92 Respiratory Rate 16 Respiratory Effort Short of Breath Short of Breath Blood Pressure 149/95 H Blood Pressure Mean 113 Pulse Ox 95 Oxygen Delivery Method Room Air Positive well nourished and well developed General Appearance ED: well developed and NAD HEENT Reports TM's clear and moist mucous membranes normocephalic and atraumatic; Negative for trauma or tenderness Tympanic Membrane ED: Yes TM's clear Eyes PERRL and EOMs intact bilaterally General Eye ED: Negative for pale conjunctiva or scleral icterus Neck no lymphadenopathy, supple and no JVD General: Negative for tenderness Chest Wall inspection of chest normal and palpation of chest normal Chest: Negative for tenderness Resp normal respiratory effort and clear to auscultation bilaterally Effort and Inspection: Negative for respiratory distress or pain with movement Auscultation: Negative for rhonchi, wheezes or diminished lung sounds Cardio regular rate, regular rhythm, S1 normal heart sound, S2 normal heart sound and no murmurs Peripheral Pulses: pulses 2+ throughout GI normal to inspection, nondistended, normoactive bowel sounds, soft to palpation, non-tender, non-distended and no masses GI Narrative: Patient has a small tick embedded in the right lower quadrant of his abdomen. He has 2 other areas on the abdomen where there is scabbing and so me faint erythema noted. No discrete bull's-eye sign noted. Back/Spine no CVA tenderness and no thoracic nor lumbar tenderness Extremity normal to inspection General Extremety ED: Negative for edema General Extremity: Negative for edema Neuro oriented x3, CN's II-XII intact bilaterally, no sensory deficits noted and gait normal Sensorium / Orientation: awake, alert, oriented to person, oriented to place and oriented to time Motor Exam: strength 5/5 throughout and strength abnormal Psych mental status grossly normal Skin no rashes or lesions noted and no wounds MDM MDM MDM Narrative Medical decision making narrative: IV line established on arrival. Tick on the lower abdomen was grasped with tweezers and easily removed intact. Patient was started on doxycycline given 1 dose in the emergency department. CT brain without contrast was unremarkable and his chest x-ray was unremarkable. I suspect he likely has a concussion. Patient will be treated with doxycycline for the tick bite with some mild surrounding cellulitis. Patient to follow-up with his primary care physician 5 to 7 days. His EKG and troponin were unremarkable and I do not feel he is having acute coronary syndrome. Patient to return if increasing shortness of breath, chest pain, or condition should worsen anyway. Lab Data Attestation: I reviewed the patient's lab results. Labs: Laboratory Results - last 24 hr 06/18/21 06/18/21 10:33 10:33 WBC 8.8 RBC 4.97 Hgb 16.1 Hct 45.8 MCV 92.2 MCH 32.4 H MCHC 35.2 RDW Std Deviation 43.0 RDW Coeff of Rose 12.6 Plt Count 233 MPV 10.5 Immature Gran % (Auto) 0.200 Neut % (Auto) 60.2 Lymph % (Auto) 29.6 [place] % (Auto) 6.7 Eos % (Auto) 2.5 Baso % (Auto) 0.8 Absolute Neuts (auto) 5.3 Absolute Lymphs (auto) 2.61 Nucleated RBC % 0 Sodium 137 Potassium 3.4 L Chloride 108 H Carbon Dioxide 24.0 Anion Gap 5 BUN 12 Creatinine 0.88 Estim Creat Clear Calc 90.70 Est GFR (MDRD) Af Amer 123 Est GFR (MDRD) Non-Af 102 BUN/Creatinine Ratio 13.6 Glucose 134 H Calcium 8.7 Troponin I High Sens < 3 L Radiography Chest X-Ray - ED: 1 View Diagnostic Testing: Clinical Impression(s) from Imaging Studies Brain CT 06/18/21 10:11 IMPRESSION: There is bilateral maxillary and ethmoid sinus disease. Otherwise unremarkable CT scan of the brain. Electronically Signed: Otf Lee MD at 11:08 EDT Reading Location ID and State: [facility] / [place] Tel , Service support , Chest X-Ray 06/18/21 10:30 IMPRESSION: Normal x-ray examination of the chest. Electronically Signed: Otf Lee MD at 10:49 EDT , 1 view chest x-ray obtained interpreted by myself as no acute disease process. Radiology in agreement. EKG Initial EKG: Attestation: I personally reviewed and interpreted this EKG as follows: Comments: Sinus rhythm with a ventricular rate of 69 bpm with old septal infarct. Discharge Plan Triage Chief Complaint: Shortness of Breath Other Complaint: Asthma ED Provider: Amanda Sanchez Dx/Rx/DC Orders Clinical Impression: Concussion, Tick bite, URI, acute Instructions: ED Upper Resp Infec Abx Tx, ED Concussion, ED Tick Bite, Abx Tx Prescriptions: New doxycycline monohydrate 100 MG capsule 100 mg PO BID Qty: 28 RF: 0 No Action aspirin [Adult Aspirin Regimen] 81 mg tablet,delayed release (DR/EC) 81 mg PO DAILY RF: 0 Primary Care Provider: Natalia Xiao Referrals: Natalia Xiao MD [Primary Care Provider] - 5-7 Days Disposition Disposition: Home, Self Care
--- NOTE | 2021-06-18 10:30 | RAD_ITS ---
STUDY: X-RAY CHEST REASON FOR EXAM: Male, 41 years old. cough TECHNIQUE: AP view of the chest COMPARISON: None. FINDINGS: The lungs are clear and expanded. There is no demonstrated pleural abnormality. Normal size heart. Normal mediastinum and harry. Normal visualized pulmonary arteries. Normal visualized aortic arch and descending thoracic aorta. Normal visualized thoracic spine. Normal visualized ribs, clavicles, and shoulders. There is no demonstrated abnormality of the visualized soft tissue structures of the upper abdomen. RAD/Chest 1 View (Portable) IMPRESSION: Normal x-ray examination of the chest. Electronically Signed: Otf Lee MD at 10:49 EDT ,
[2021-06-18] MEDS: 0.9% Normal Saline 1,000 ML 150 ML IV (10:33)
[2021-06-18] MEDS: Doxycycline 100 MG CAPSULE PO (10:40)
[2021-06-18 10:41] LABS: Absolute Lymphocyte Count 2.61 X10^3/uL (0.83-4.51); Absolute Neutrophil Count 5.3 X10^3/uL (2.0-7.7); Basophil# 0.07 X10^3/uL; Basophil% 0.8 % (0-1); Eosinophil# 0.22 X10^3/uL; Eosinophils% 2.5 % (0-5); Hematocrit 45.8 % (40-54); Hemoglobin 16.1 g/dL (13.0-16.5); Lymphocyte # 2.61 X10^3/ul (0.83-4.51); Lymphocyte % 29.6 % (19-41); Mean Corp Hgb Conc 35.2 g/dL (32-36); Mean Corpuscular Hgb 32.4 pg (27.0-32.0); Mean Corpuscular Volume 92.2 fL (80-94); Mean Platelet Vol. 10.5 fl (6.2-12.0); Monocyte# 0.59 X10^3/uL; Monocyte% 6.7 % (0-10); NRBC Flagged by Analyzer 0 % (0-5); Neutrophil # 5.31 X10^3/uL (2.7-7.7); Neutrophil % 60.2 % (47-70); Platelet Count 233 K/mm3 (150-450); RBC Distribution Width CV 12.6 % (11.6-14.6); Red Blood Count 4.97 M/mm3 (4.6-6.2); White Blood Count 8.8 K/mm3 (4.4-11.0)
[2021-06-18 10:58] LABS: Anion Gap 5 (5-15); BUN 12 mg/dL (7-18); BUN/Creat Ratio 13.6 RATIO (10-20); Calcium,Total 8.7 mg/dL (8.5-10.1); Chloride 108 mmol/L (98-107); Creatinine, Serum 0.88 mg/dL (0.70-1.30); EST Glomerular Filtration Rate 102 mL/min (>60); Est Glom Filt Rate - Afr Amer 123 mL/min (>60); Glucose 134 mg/dL (74-106); Potassium 3.4 mmol/L (3.5-5.1); Sodium Level 137 mmol/L (136-145); Troponin-I HS (w/2H Reflex) < 3 pg/mL (3.0-78.0)
[2021-06-18 11:20] VITALS: BP 124/69; PULSE 72; RESP 15; O2SAT 98
[2021-06-18 12:36] LABS: Reflex Troponin-HS? (from REC) Y
== END 2021-06-18 11:20 | disposition home or self-care (01) ==
PROVIDERS: Emergency Provider Emergency Medicine; PCP Internal Medicine; Visit Provider Emergency Medicine
DX: S06.0X0A Concussion without loss of consciousness, initial encounter (principal); B18.2 Chronic viral hepatitis C; F17.210 Nicotine dependence, cigarettes, uncomplicated; J06.9 Acute upper respiratory infection, unspecified; E78.5 Hyperlipidemia, unspecified; I10 Essential (primary) hypertension; I25.10 Atherosclerotic heart disease of native coronary artery without angina pectoris; J45.909 Unspecified asthma, uncomplicated; Z79.899 Other long term (current) drug therapy; Z79.82 Long term (current) use of aspirin; I25.2 Old myocardial infarction; T63.481A Toxic effect of venom of other arthropod, accidental (unintentional), initial encounter; Y93.89 Activity, other specified; Y99.9 Unspecified external cause status; Y92.89 Other specified places as the place of occurrence of the external cause; W01.0XXA Fall on same level from slipping, tripping and stumbling without subsequent striking against object, initial encounter
CPT/HCPCS: 70450; 71045; 80048; 84484; 85025; 87811; 93005; 96360; 99284; J7030; A4216

== ENCOUNTER 2021-08-23 15:12 | Emergency (ER) | payer MEDICAID, SELFPAY ==
[2021-08-23 15:13] VITALS: BP 139/90; PULSE 85; PULSE 94; RESP 15; RESP 16; TEMP 36.8; O2SAT 98; BMI 30.9
--- NOTE | 2021-08-23 15:20 | EKG12_ITS ---
Test Reason : CP Blood Pressure : / mmHG Vent. Rate : 084 BPM Atrial Rate : 084 BPM P-R Int : 122 ms QRS Dur : 068 ms QT Int : 366 ms P-R-T Axes : 062 059 069 degrees QTc Int : 432 ms Normal sinus rhythm Septal infarct (cited on or before 18-JUN-2021) Abnormal ECG Confirmed by CHERRI NELSON MD ([id number]), editorial writer GRIFFIN PEÑALOZA ([id number]) on 08/25/2021 2:12:11 PM Referred By: Tatyana Confirmed By:CHERRI NELSON MD
--- NOTE | 2021-08-23 15:23 | EDS_ITS ---
HPI History of Present Illness Chief Complaint: Chest Pain Informant: patient Onset/Context/Timing Onset: Yesterday Timing: Intermittent Quality: Positive for Aching, Heaviness, Sharp, Stabbing and Tightness Location: Left Parasternal Current Severity: Moderate Maximum Severity: Moderate Narrative Narrative: Patient presents secondary to intermittent chest pain that started late yesterday morning. He has a history of prior [facility] x2 or 3 with a single-vessel CABG. He does not have any cardiac stents. He did take 3 baby aspirin yesterday and 1 baby aspirin today. He points to the left sternal border describing his area of pain. PFSH PFSH Medical History Arteriosclerosis of coronary artery in patient with history of myocardial infarction Chest pain Chronic hepatitis C Dyspnea on exertion History of non-ST elevation myocardial infarction (NSTEMI) History of ST elevation myocardial infarction (STEMI) (02/03/08) HLD (hyperlipidemia) HTN (hypertension) Smoking addiction Home Medications aspirin 81 mg tablet,delayed release (Adult Aspirin Regimen) 81 mg PO DAILY 10/28/18 [History Last Taken 08/23/21] hydrocodone-acetaminophen 5-325mg 5mg-325mg 1 tab PO Q6H PRN pain 3 days #10 tabs 08/23/21 [Rx Last Taken Unknown] omeprazole 20 mg capsule,delayed release 20 mg PO DAILY gerd 08/23/21 [History Last Taken 08/22/21] Allergy/AdvReac Type Severity Reaction Status Date / Time No Known Allergies Allergy Verified 08/23/21 15:19 Family History Father CAD (coronary artery disease) Hypertension Hyperlipidemia COPD (chronic obstructive pulmonary disease) Sudden cardiac Stented coronary artery S/P CABG x 3 Surgical History History of left heart catheterization (12/13/18) S/P CABG x 1 (02/03/08) Social History Smoking Status: Current every day smoker tobacco type: cigarettes ROS ROS ED Constitutional Constitutional ED: Denies chills or fever(s) Eyes Eyes: Denies change in vision or discharge from eye(s) ENT ENT ED: Denies discharge from eye(s), rhinorrhea or sore throat Cardiovascular Cardiovascular: Reports chest pain; Denies palpitations Respiratory/Chest Respiratory/Chest: Reports cough and other Details: Occasional wheezing ; Denies dyspnea Gastrointestinal Gastrointestinal: Denies abdominal pain, diarrhea, nausea or vomiting Genitourinary Genitourinary ED: Denies dysuria Musculoskeletal Musculoskeletal: Reports back pain; Denies extremity pain Integumentary Denies Abrasions or rash Neurologic Neurologic: Denies headache(s) or weakness Psychiatric Psychiatric: Denies anxiety or depression Allergic/Immunologic Allergic/Immunologic ED: Denies lip swelling or urticaria EXAM Physical Exam Const Vital Signs: 08/23/21 15:13 08/23/21 15:13 08/23/21 15:18 Temperature 98.3 F Temperature Source Temporal Pulse Rate 85 94 Respiratory Rate 16 15 Respiratory Effort Normal Blood Pressure 139/90 H Blood Pressure Mean 106 Pulse Ox 98 98 Oxygen Delivery Method Room Air Room Air 08/23/21 15:21 08/23/21 16:13 08/23/21 17:05 Temperature Temperature Source Pulse Rate 78 87 Respiratory Rate 12 24 H Respiratory Effort Blood Pressure 133/91 H Blood Pressure Mean 105 Pulse Ox 96 99 Oxygen Delivery Method Room Air Room Air Room Air 08/23/21 18:00 Temperature Temperature Source Pulse Rate 74 Respiratory Rate 16 Respiratory Effort Blood Pressure 93/65 Blood Pressure Mean 74 Pulse Ox 95 Oxygen Delivery Method Room Air Positive well nourished and well developed General Appearance ED: well developed HEENT Reports normocephalic and head/scalp atraumatic Eyes PERRL and EOMs intact bilaterally Neck supple Chest Wall inspection of chest normal and palpation of chest normal Resp normal respiratory effort and clear to auscultation bilaterally Cardio regular rate and regular rhythm GI non-tender Palpation: soft Back/Spine no CVA tenderness Extremity normal to inspection Neuro oriented x3 and no sensory deficits noted Sensorium / Orientation: alert Motor Exam: strength 5/5 throughout Psych Mood & Affect: anxious Skin no rashes or lesions noted Heart Score History: Moderately Suspicious ECG: Normal Age: </= 45 years Risk Factors: >/= 3 Risk Factors or History of CAD Troponin: </= Normal Limit Score: 3 MDM MDM MDM Narrative Medical decision making narrative: Patient had already taken 1 baby aspirin today and was given 3 additional baby aspirin on arrival. He was given morphine and Zofran for pain. EKG, chest x- ray, lab work obtained. Lab Data Attestation: I reviewed the patient's lab results. Labs: Laboratory Results - last 24 hr 08/23/21 08/23/21 08/23/21 15:18 15:18 15:18 WBC 9.0 RBC 5.64 Hgb 18.3 H* Hct 52.3 MCV 92.7 MCH 32.4 H MCHC 35.0 RDW Std Deviation 43.1 RDW Coeff of Rose 12.7 Plt Count 250 MPV 11.0 Immature Gran % (Auto) 0.600 Neut % (Auto) 55.7 Lymph % (Auto) 34.5 [place] % (Auto) 7.2 Eos % (Auto) 1.3 Baso % (Auto) 0.7 Absolute Neuts (auto) 5.0 Absolute Lymphs (auto) 3.11 Nucleated RBC % 0 Diff Path Review May foll Platelet Estimate ADEQUATE Anisocytosis RARE Macrocytosis RARE D-Dimer Quant (PE/DVT) 4.55 H* Sodium 138 Potassium 3.5 Chloride 103 Carbon Dioxide 27.0 Anion Gap 8 BUN 7 Creatinine 0.96 Estim Creat Clear Calc 89.87 Est GFR (MDRD) Af Amer 112 Est GFR (MDRD) Non-Af 93 BUN/Creatinine Ratio 7.3 L Glucose 125 H Calcium 9.9 Troponin I High Sens 4 08/23/21 17:30 WBC RBC Hgb Hct MCV MCH MCHC RDW Std Deviation RDW Coeff of Rose Plt Count MPV Immature Gran % (Auto) Neut % (Auto) Lymph % (Auto) [place] % (Auto) Eos % (Auto) Baso % (Auto) Absolute Neuts (auto) Absolute Lymphs (auto) Nucleated RBC % Diff Path Review Platelet Estimate Anisocytosis Macrocytosis D-Dimer Quant (PE/DVT) Sodium Potassium Chloride Carbon Dioxide Anion Gap BUN Creatinine Estim Creat Clear Calc Est GFR (MDRD) Af Amer Est GFR (MDRD) Non-Af BUN/Creatinine Ratio Glucose Calcium Troponin I High Sens 5 Radiography Chest X-Ray - ED: 1 View, Read by ED Physician, Normal, Heart, Lungs and Mediastinum Diagnostic Testing: Clinical Impression(s) from Imaging Studies Chest X-Ray 08/23/21 15:30 IMPRESSION: No active disease. Electronically Signed: Miguel Wilson MD at 17:17 EDT , Chest CTA 08/23/21 16:11 IMPRESSION: Normal CTA chest examination, without a demonstrated pulmonary embolism or arterial dissection. Electronically Signed: Miguel Wilson MD at 17:08 EDT , EKG Initial EKG: Attestation: I personally reviewed and interpreted this EKG as follows: Interpretation: Sinus Rhythm (Sinus 84 with no acute ischemia.) Treatment and Re-Evaluation Narrative: Chest x-ray per my interpretation reveals no acute findings. Radiology interpretation is reviewed. EKG reveals no ischemia. Lab work returns with normal troponin at 4. D-dimer is elevated at 4.55. Patient is sent for CTA of his chest. There are other acute abnormality. 2-hour repeat troponin is obtained and is equal to 5. At this time patient has 2 negative troponins. While he does have significant cardiac history and does need follow-up I do not feel he needs to be observed in the hospital overnight as he has had greater than 24 hours of pain with negative work-up. Patient will be given some analgesics for home and will call cardiology tomorrow morning for follow-up. Discharge Plan Triage Chief Complaint: Chest Pain ED Provider: Shelby Joe Dx/Rx/DC Orders Clinical Impression: Chest pain Instructions: ED Chest Pain, Uncertain Cause Prescriptions: New hydrocodone-acetaminophen 5-325 mg tablet 1 tab PO Q6H PRN (Reason: pain) 3 Days Qty: 10 0RF No Action aspirin [Adult Aspirin Regimen] 81 mg tablet,delayed release (DR/EC) 81 mg PO DAILY omeprazole 20 mg capsule,delayed release(DR/EC) 20 mg PO DAILY Label Comments: Take 1 capsule by mouth daily before breakfast. 1/2 hr before meal. Primary Care Provider: Natalia Xiao Referrals: Natalia Xiao MD [Primary Care Provider] - 1-2 Weeks Catalino Antunez MD [STAFF PHYSICIAN] - As soon as possible Disposition Disposition: Home, Self Care
[2021-08-23] MEDS: Morphine 4 MG/ML Syringe IV ×2 (15:27→16:44)
[2021-08-23] MEDS: Ondansetron 4 MG/2 ML Vial IV (15:27)
[2021-08-23] MEDS: Aspirin 81 MG TAB.CHEW 243 MG PO (15:27)
--- NOTE | 2021-08-23 15:30 | RAD_ITS ---
STUDY: X-RAY CHEST REASON FOR EXAM: Male, 41 years old. chest pain TECHNIQUE: Single AP portable view of the chest. COMPARISON: 06/18/2021 FINDINGS: Status post median sternotomy. Embolization coils in the chest just the right of midline possibly from bronchial artery embolization. The lungs are clear and expanded. There is no demonstrated pleural abnormality. Normal size heart. Normal mediastinum and harry. Normal visualized pulmonary arteries. Normal visualized aortic arch and descending thoracic aorta. Normal visualized thoracic spine. Normal visualized ribs, clavicles, and shoulders. There is no demonstrated abnormality of the visualized soft tissue structures of the upper abdomen. RAD/Chest 1 View (Portable) IMPRESSION: No active disease. Electronically Signed: Miguel Wilson MD at 17:17 EDT ,
[2021-08-23 15:31] LABS: Absolute Lymphocyte Count 3.11 X10^3/uL (0.83-4.51); Basophil# 0.06 X10^3/uL; Basophil% 0.7 % (0-1); Eosinophil# 0.12 X10^3/uL; Eosinophils% 1.3 % (0-5); Hematocrit 52.3 % (40-54); Lymphocyte # 3.11 X10^3/ul (0.83-4.51); Lymphocyte % 34.5 % (19-41); Mean Corpuscular Hgb 32.4 pg (27.0-32.0); Mean Corpuscular Volume 92.7 fL (80-94); Monocyte# 0.65 X10^3/uL; Monocyte% 7.2 % (0-10); NRBC Flagged by Analyzer 0 % (0-5); Neutrophil # 5.03 X10^3/uL (2.7-7.7); Neutrophil % 55.7 % (47-70); Platelet Count 250 K/mm3 (150-450); RBC Distribution Width CV 12.7 % (11.6-14.6); RBC Distribution Width SD 43.1 fl (35.1-43.9); Red Blood Count 5.64 M/mm3 (4.6-6.2)
[2021-08-23] MEDS: 0.9% Normal Saline 1,000 ML 150 ML IV (15:31)
[2021-08-23 15:41] LABS: Hemoglobin 18.3 g/dL (13.0-16.5)
--- NOTE | 2021-08-23 15:41 | ED.RN ---
CRITICAL CALLED BY LAB OF HEMOGLOBIN AT 18.3. DR ALVAREZ
[2021-08-23 15:42] LABS: Differential Indicated SCAN CRITERIA MET; POSITIVE COUNT NO; POSITIVE DIFFERENTIAL NO; POSITIVE MORPHOLOGY NO
[2021-08-23 15:56] LABS: Anisocytosis RARE
[2021-08-23 15:57] LABS: Macrocytosis RARE; Platelet Estimate ADEQUATE (ADEQ)
[2021-08-23 16:02] LABS: Anion Gap 8 (5-15); BUN 7 mg/dL (7-18); BUN/Creat Ratio 7.3 RATIO (10-20); Calcium,Total 9.9 mg/dL (8.5-10.1); Chloride 103 mmol/L (98-107); Creatinine, Serum 0.96 mg/dL (0.70-1.30); EST Glomerular Filtration Rate 93 mL/min (>60); Est Glom Filt Rate - Afr Amer 112 mL/min (>60); Estimated Creatinine Clearance 89.87 ml/min; Glucose 125 mg/dL (74-106); Potassium 3.5 mmol/L (3.5-5.1); Sodium Level 138 mmol/L (136-145); Troponin-I HS (w/2H Reflex) 4 pg/mL (3.0-78.0)
[2021-08-23 16:07] LABS: D-Dimer Quantitative (DVT/PE) 4.55 FEU/ug/m (0.27-0.49)
--- NOTE | 2021-08-23 16:11 | CT_ITS ---
STUDY: CTA CHEST REASON FOR EXAM: Male, 41 years old. CP, elevated d-dimer RADIATION DOSAGE (If Supplied By Facility): CTDIvol = ( 9.16 ) mGy, DLP = ( 371.91 ) mGycm TECHNIQUE: The examination was performed with the intravenous administration of IV 100mL Isovue-370. Post-processing of the angiographic images was performed, with multiplanar reformation and 3D reconstruction. Individualized dose optimization techniques were used for this CT. COMPARISON: 12/26/2018 FINDINGS: Status post median sternotomy. Normal enhancement of the main pulmonary artery and right and left pulmonary arteries. Normal enhancement of the bilateral peripheral pulmonary arteries. There is no demonstrated pulmonary embolism. Normal thoracic aorta and visualized great vessels. There is no demonstrated aortic dissection. Normal heart and pericardium. Normal mediastinum. Normal hilar regions. Normal visualized trachea and bronchi. The lungs are well expanded. Normal pulmonary parenchyma. Normal pleura. Normal chest wall structures. Normal osseous structures. Normal visualized upper abdomen. CT/CTA Chest W/WO Contrast IMPRESSION: Normal CTA chest examination, without a demonstrated pulmonary embolism or arterial dissection. Electronically Signed: Miguel Wilson MD at 17:08 EDT ,
[2021-08-23 16:13] VITALS: BP 133/91; PULSE 78; RESP 12; O2SAT 96
[2021-08-23 17:05] VITALS: PULSE 87; RESP 24; O2SAT 99
[2021-08-23 17:26] LABS: Reflex Troponin-HS? (from REC) Y
[2021-08-23 18:00] VITALS: BP 93/65; PULSE 74; RESP 16; O2SAT 95
[2021-08-23 18:09] LABS: Troponin-I HS 5 pg/mL (3.0-78.0)
[2021-08-23 18:33] VITALS: BP 132/77; PULSE 73; RESP 16; O2SAT 98
[2021-08-25 12:10] LABS: Pathologist Review Reviewed
== END 2021-08-23 18:40 | disposition home or self-care (01) ==
PROVIDERS: Emergency Provider Emergency Medicine; PCP Internal Medicine; Visit Provider Emergency Medicine
DX: R07.9 Chest pain, unspecified (principal); E78.5 Hyperlipidemia, unspecified; I25.10 Atherosclerotic heart disease of native coronary artery without angina pectoris; I10 Essential (primary) hypertension; F17.210 Nicotine dependence, cigarettes, uncomplicated; Z95.1 Presence of aortocoronary bypass graft; Z79.82 Long term (current) use of aspirin; Z79.899 Other long term (current) drug therapy
CPT/HCPCS: 84484; 85025; J2405; 71045; Q9967; 80048; 85379; 99284; 71275; 96374; 96375; 93005; 96361; J7030; A4216

== ENCOUNTER 2021-08-25 14:44 | Inpatient (IN) | payer MEDICAID, SELFPAY ==
[2021-08-25] VITALS (21 sets, daily range): BP systolic 119–149; BP diastolic 20–109; PULSE 68–88; RESP 15–23; TEMP 36.2–37; O2SAT 96–100; BMI 30.4; BMI 30.3
--- NOTE | 2021-08-25 14:58 | EKG12_ITS ---
Test Reason : CP Blood Pressure : / mmHG Vent. Rate : 066 BPM Atrial Rate : 066 BPM P-R Int : 142 ms QRS Dur : 070 ms QT Int : 398 ms P-R-T Axes : 055 049 051 degrees QTc Int : 417 ms Normal sinus rhythm septal OR, age undetermined, cannont be excluded Confirmed by JULIAN CASAS, DEZ ([id number]), legal editor GRIFFIN PEÑALOZA ([id number]) on 08/26/2021 10:21:47 AM Referred By: PATRICK Confirmed By:DEZ JORDAN MD
[2021-08-25 15:22] LABS: Absolute Lymphocyte Count 2.84 X10^3/uL (0.83-4.51); Absolute Neutrophil Count 4.4 X10^3/uL (2.0-7.7); Basophil# 0.05 X10^3/uL; Basophil% 0.6 % (0-1); Eosinophil# 0.09 X10^3/uL; Eosinophils% 1.1 % (0-5); Hematocrit 46.1 % (40-54); Hemoglobin 15.9 g/dL (13.0-16.5); Lymphocyte # 2.84 X10^3/ul (0.83-4.51); Lymphocyte % 35.5 % (19-41); Mean Corp Hgb Conc 34.5 g/dL (32-36); Mean Corpuscular Volume 92.8 fL (80-94); Mean Platelet Vol. 10.9 fl (6.2-12.0); Monocyte# 0.52 X10^3/uL; Monocyte% 6.5 % (0-10); NRBC Flagged by Analyzer 0 % (0-5); Neutrophil # 4.44 X10^3/uL (2.7-7.7); Neutrophil % 55.7 % (47-70); Platelet Count 201 K/mm3 (150-450); RBC Distribution Width CV 12.7 % (11.6-14.6); RBC Distribution Width SD 43.2 fl (35.1-43.9); Red Blood Count 4.97 M/mm3 (4.6-6.2)
--- NOTE | 2021-08-25 15:26 | EDS_ITS ---
HPI History of Present Illness Chief Complaint: Chest Pain Narrative Narrative: 41-year-old male with history of CAD, NSTEMI, STEMI, one-vessel CABG, hypertension, hyperlipidemia presenting with chest pain. Patient's tells me that he has some chest pain which is in the left side of his chest and feels like pressure. It radiates to his back. He states this gets worse when he gets up to ambulate and after about 10 to 15 feet he gets sweaty and short of breath. He has taken nitroglycerin and rested for about 10 minutes and this is improving it. He states that basically every time he gets up and walks. Patient was seen a couple of days ago in the emergency room and had a negative work-up including a CTA of the chest. He followed up with cardiology today and was sent back over for reevaluation and admission. Patient still having similar symptoms. PFSH PFSH Medical History Arteriosclerosis of coronary artery in patient with history of myocardial infarction Bipolar disorder Chest pain Chronic hepatitis C COPD (chronic obstructive pulmonary disease) Coronary artery disease Dyspnea on exertion Hepatitis History of non-ST elevation myocardial infarction (NSTEMI) History of ST elevation myocardial infarction (STEMI) (02/03/08) HLD (hyperlipidemia) HTN (hypertension) Myocardial infarct Smoker Smoking addiction Home Medications NK 08/25/21 [History Last Taken Unknown] Allergy/AdvReac Type Severity Reaction Status Date / Time No Known Allergies Allergy Verified 08/25/21 14:48 Family History Father CAD (coronary artery disease) Hypertension Hyperlipidemia COPD (chronic obstructive pulmonary disease) Sudden cardiac Stented coronary artery S/P CABG x 3 Surgical History History of left heart catheterization (12/13/18) S/P CABG x 1 (02/03/08) Social History Smoking Status: Current every day smoker tobacco type: cigarettes ROS ROS ED Constitutional Constitutional ED: Reports sweats; Denies chills or fever(s) Eyes Eyes: Denies blurry vision or change in vision ENT ENT ED: Denies rhinorrhea or sore throat Cardiovascular Cardiovascular: Reports chest pain Respiratory/Chest Respiratory/Chest: Reports dyspnea on exertion Gastrointestinal Gastrointestinal: Denies abdominal pain or constipation Genitourinary Genitourinary ED: Denies dysuria or hematuria Musculoskeletal Musculoskeletal: Denies arthralgias or back pain Integumentary Denies abscess or Abrasions Neurologic Neurologic: Denies headache(s) or paresthesias Psychiatric Psychiatric: Denies anxiety or depression EXAM Physical Exam Const Vital Signs: 08/25/21 14:45 08/25/21 15:05 08/25/21 15:07 Temperature 97.7 F L Temperature Source Temporal Pulse Rate 83 Respiratory Rate 16 Respiratory Effort Short of Breath Blood Pressure 140/91 H Blood Pressure Mean 107 Pulse Ox 96 98 Oxygen Delivery Method Room Air Room Air Positive well nourished General Appearance ED: Negative for pallor HEENT Reports TM's clear and moist mucous membranes Tympanic Membrane ED: Yes TM's clear Eyes PERRL Chest Wall inspection of chest normal and palpation of chest normal Resp normal respiratory effort and clear to auscultation bilaterally Auscultation: Negative for rales, rhonchi or wheezes Cardio regular rate and regular rhythm GI normal to inspection, nondistended, normoactive bowel sounds Back/Spine no CVA tenderness Neuro oriented x3 and CN's II-XII intact bilaterally Sensorium / Orientation: awake and alert Psych mental status grossly normal Skin no rashes or lesions noted General Skin Exam: Negative for jaundice or pallor Heart Score History: Moderately Suspicious ECG: Normal Age: >45 - <65 years Risk Factors: >/= 3 Risk Factors or History of CAD Troponin: </= Normal Limit Score: 4 MDM MDM MDM Narrative Medical decision making narrative: Patient presenting with ongoing chest pain. I spoke with the nurse practitioner at [facility] and she stated that they would be admitting the patient due to ongoing chest pain. I obtained blood work and his CBC and BMP are essentially unremarkable. High-sensitivity troponin again is 4. EKG on my interpretation shows a normal sinus rhythm with a ventricular rate of 66 bpm without sign of ischemic change or dysrhythmia. I did not repeat the chest x- ray as patient recently had a chest x-ray and a CTA after having an elevated D- dimer. Patient's vital signs are stable he is afebrile. Initially when he came in he did not have any pain and then he stated he had some pain and requested nitroglycerin which was provided. I spoke with the hospitalist for admission. Patient will be admitted to the medical floor in stable condition. Impression: 1. Chest pain 2. Unstable angina Lab Data Attestation: I reviewed the patient's lab results. Labs: Laboratory Results - last 24 hr 08/25/21 08/25/21 08/25/21 15:07 15:07 15:07 WBC 8.0 RBC 4.97 Hgb 15.9 Hct 46.1 MCV 92.8 MCH 32.0 MCHC 34.5 RDW Std Deviation 43.2 RDW Coeff of Rose 12.7 Plt Count 201 MPV 10.9 Immature Gran % (Auto) 0.600 Neut % (Auto) 55.7 Lymph % (Auto) 35.5 [place] % (Auto) 6.5 Eos % (Auto) 1.1 Baso % (Auto) 0.6 Absolute Neuts (auto) 4.4 Absolute Lymphs (auto) 2.84 Nucleated RBC % 0 PT 14.0 INR 1.1 APTT 29.4 Sodium 139 Potassium 3.9 Chloride 107 Carbon Dioxide 25.0 Anion Gap 7 BUN 8 Creatinine 0.72 Estim Creat Clear Calc 119.82 Est GFR (MDRD) Af Amer 157 Est GFR (MDRD) Non-Af 130 BUN/Creatinine Ratio 11.2 Glucose 87 Calcium 9.1 Troponin I High Sens 4 Discharge Plan Triage Chief Complaint: Chest Pain ED Provider: Adolph Cruz Dx/Rx/DC Orders Primary Care Provider: Natalia Xiao
[2021-08-25 15:45] LABS: Anion Gap 7 (5-15); BUN 8 mg/dL (7-18); BUN/Creat Ratio 11.2 RATIO (10-20); Calcium,Total 9.1 mg/dL (8.5-10.1); Chloride 107 mmol/L (98-107); Creatinine, Serum 0.72 mg/dL (0.70-1.30); EST Glomerular Filtration Rate 130 mL/min (>60); Est Glom Filt Rate - Afr Amer 157 mL/min (>60); Estimated Creatinine Clearance 119.82 ml/min; Glucose 87 mg/dL (74-106); Potassium 3.9 mmol/L (3.5-5.1); Sodium Level 139 mmol/L (136-145); Troponin-I HS (w/2H Reflex) 4 pg/mL (3.0-78.0)
[2021-08-25] MEDS: Nitroglycerin (INPATIENT USE) 0.4 MG TAB.SUBL SL ×2 (15:56→17:13)
[2021-08-25 16:24] LABS: International Normalized Ratio 1.1; Partial Thromboplast Time 29.4 Seconds (24.1-36.2)
--- NOTE | 2021-08-25 17:03 | PCM.HP.STD ---
HPI - General General Date of Admission: 08/25/21 Date of Service: 08/25/21 Chief Complaint: Chest pain HPI Narrative MANJIT RAMÍREZ, is a 41 M who presented to the emergency department was [facility] on 08/25/2021 with a chief complaint of chest pain. Patient does have a history of coronary artery disease status post CABG in 2007 with most recent left heart catheterization in 2018. He states his symptoms started at 11 AM on Sunday. 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 His pain has been intermittent and substernal pressure similar to his previous LA. He has associated nausea without vomiting, diaphoresis, and shortness of breath. The patient is very consistent and states it is definitely worse with exertion. He was seen in the emergency department 2 days ago with negative work-up including a CTA of the chest and was discharged to follow-up with cardiology today. After seen by cardiology they referred him back to the emergency department for further evaluation. Patient has been noncompliant at home with medications. He still smokes approximately 1 pack of cigarettes a day. He also admits to marijuana use but denies any other drugs. He reports his father had 9 heart attacks and is now . Vital signs on presentation the emergency department showed a temperature of 97.7, heart rate of 83, blood pressure of 140/91, respiratory rate was 16 and oxygen saturations were 96% on room air. His CBC was unremarkable. Coags were normal. BMP was unremarkable. Initial troponin was 4. His EKG showed normal sinus rhythm with normal intervals and no ST-T wave changes consistent with acute ischemia. Patient's last cardiac catheterization was in 2019 at which time he was noted to have some abnormalities in the RCA as well as diffuse luminal irregularities anywhere from 30 to 50%. His graft, WILKES to LAD, was totally occluded at that time. In the emergency department he was treated with nitroglycerin and morphine for pain. I did discuss the case with cardiology and they will be by to evaluate him today for cath tomorrow and would like us to start a heparin drip. [facility] Medical History Arteriosclerosis of coronary artery in patient with history of myocardial infarction Bipolar disorder Chest pain Chronic hepatitis C COPD (chronic obstructive pulmonary disease) Coronary artery disease Dyspnea on exertion Hepatitis History of non-ST elevation myocardial infarction (NSTEMI) History of ST elevation myocardial infarction (STEMI) (02/03/08) HLD (hyperlipidemia) HTN (hypertension) Myocardial infarct Smoker Smoking addiction Home Medications NK 08/25/21 [History Last Taken Unknown] Allergy/AdvReac Type Severity Reaction Status Date / Time No Known Allergies Allergy Verified 08/25/21 14:48 Family History Father CAD (coronary artery disease) Hypertension Hyperlipidemia COPD (chronic obstructive pulmonary disease) Sudden cardiac Stented coronary artery S/P CABG x 3 Surgical History History of left heart catheterization (12/13/18) S/P CABG x 1 (02/03/08) Social History (Updated 08/25/21 @ 17:[address] 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 Smoking Status: Current every day smoker tobacco type: cigarettes Smoking packs per day: 1 Smoking cigarettes per day: 20.0 alcohol intake: never substance use type: marijuana ROS Constitutional Constitutional: Denies anorexia, change in weight, chills, fatigue, fever(s), malaise, night sweats, weakness or other Eyes Eyes: Denies blurry vision, change in eye color, change in vision, discharge from eye(s), double vision, erythema, eye pain, loss of vision or other ENT HEENT: Denies abnormal hearing, dysphagia, ear pain, epistaxis, headache(s), hearing loss, nasal congestion, nasal discharge, post nasal drip, sinus pressure, sore throat or other Cardiovascular Cardiovascular: Reports chest pain, dyspnea on exertion and other Details: Diaphoresis associated with chest pain ; Denies claudication, edema, lightheadedness, orthopnea, palpitations, paroxysmal nocturnal dyspnea, rapid heart rate or syncope Respiratory/Chest Respiratory/Chest: Reports shortness of breath with exertion; Denies cough, dyspnea, excessive phlegm production, hemoptysis, productive cough, shortness of breath at rest, wheezing or other Gastrointestinal Gastrointestinal: Reports nausea; Denies abdominal pain, coffee ground emesis, constipation, diarrhea, dyspepsia, hematemesis, hematochezia, loose stools, melena, vomiting or other Genitourinary Genitourinary: Denies burning urination, difficulty urinating, dysuria, hematuria, nocturia, urinary frequency, urinary hesitancy, urinary incontinence, urinary urgency or other Musculoskeletal Musculoskeletal: Denies arthralgias, back pain, joint pain, joint stiffness, joint swelling, myalgias, neck pain or other Neurologic Neurologic: Denies abnormal gait, abnormal speech, confusion, disequilibrium, dizziness, focal weakness, headache(s), numbness, paresthesias, seizure-like activity, seizures, syncope, tingling, tremor(s) or other Psychiatric Psychiatric: Denies anxiety, depression, homicidal ideation, suicidal ideation or other Endocrine Endocrinology: Denies change in body appearance, cold intolerance, excessive sweating, heat intolerance, polydipsia, polyuria or other Hematologic/Lymphatic Hematologic/Lymphatic: Denies anemia, easy bleeding, easy bruising, lymphadenopathy or other Allergic/Immunologic Allergic/Immunologic: Denies rhinitis, hives, eczemia, asthma or other Vital Signs Vital Signs Vital Signs: 08/25/21 14:45 08/25/21 15:05 08/25/21 15:07 Temperature 97.7 F L Temperature Source Temporal Pulse Rate 83 Respiratory Rate 16 Respiratory Effort Short of Breath Blood Pressure 140/91 H Blood Pressure Mean 107 Blood Pressure Source Blood Pressure Position Blood Pressure Location Pulse Ox 96 98 Oxygen Delivery Method Room Air Room Air 08/25/21 15:56 08/25/21 16:00 08/25/21 16:14 Temperature 98.6 F Temperature Source Temporal Pulse Rate 72 79 71 Respiratory Rate 16 15 Respiratory Effort Blood Pressure 149/93 H 145/95 H 124/78 H Blood Pressure Mean 111 93 Blood Pressure Source Blood Pressure Position Blood Pressure Location Pulse Ox 98 99 Oxygen Delivery Method Room Air Room Air 08/25/21 16:53 Temperature 98.3 F Temperature Source Oral Pulse Rate 70 Respiratory Rate 16 Respiratory Effort Blood Pressure 127/20 H Blood Pressure Mean 55 Blood Pressure Source Monitor Blood Pressure Position Sitting Blood Pressure Location Right Arm Pulse Ox 98 Oxygen Delivery Method Room Air Weight Weight: 82.69 kg Body Mass Index (BMI) 30.3 Physical Exam Const Constitutional Narrative: Overweight, middle-aged white male who appears older than stated age, sitting up in bed, significant other at bedside, patient appears to be slightly uncomfortable at this time, nursing at bedside as well, nontoxic General Appearance: cooperative HEENT normocephalic, head/scalp atraumatic, hearing grossly normal bilaterally and moist oral mucous membranes HEENT Narrative: Edentulous, Mallampati 2, no thrush Eyes PERRL, EOMs intact bilaterally and conjunctivae normal Eyes Narrative: No scleral icterus Neck no lymphadenopathy, supple, no JVD and no carotid bruits Neck Narrative: Trachea midline, no thyroid enlargement Resp normal respiratory effort, no retractions, no use of accessory muscles and clear to auscultation bilaterally Resp Narrative: Diminished but clear Auscultation: Negative for crackles, rales, rhonchi or wheezes Cardio regular rate, regular rhythm, S1 normal heart sound, S2 normal heart sound, no murmurs, no rub, no gallops, no clicks and no JVD GI normal to inspection, nondistended, normoactive bowel sounds, soft to palpation, non-tender and non-distended; Negative for hepatosplenomegaly Extremity normal to inspection and no clubbing, cyanosis or edema Extremity Narrative: 2+ pedal pulses Skin no rashes or lesions noted, no wounds, skin turgor normal, no jaundice, no petechiae and no mottling Neuro oriented x3, CN's II-XII intact bilaterally, moves all extremities and no focal motor deficits Neuro Narrative: No sensory deficits Speech: speech normal Psych affect normal Mood & Affect: anxious Results Lab / Micro Data Result Diagrams: 08/25/21 15:07 08/25/21 15:07 Labs: Laboratory Results - last 24 hr 08/25/21 15:07: WBC 8.0, RBC 4.97, Hgb 15.9, Hct 46.1, MCV 92.8, MCH 32.0, MCHC 34.5, RDW Std Deviation 43.2, RDW Coeff of Rose 12.7, Plt Count 201, MPV 10.9, Immature Gran % (Auto) 0.600, Neut % (Auto) 55.7, Lymph % (Auto) 35.5, [place] % (Auto) 6.5, Eos % (Auto) 1.1, Baso % (Auto) 0.6, Absolute Neuts (auto) 4.4, Absolute Lymphs (auto) 2.84, Nucleated RBC % 0 08/25/21 15:07: Sodium 139, Potassium 3.9, Chloride 107, Carbon Dioxide 25.0, Anion Gap 7, BUN 8, Creatinine 0.72, Estim Creat Clear Calc 119.82, Est GFR (MDRD) Af Amer 157, Est GFR (MDRD) Non-Af 130, BUN/Creatinine Ratio 11.2, Glucose 87, Calcium 9.1, Troponin I High Sens 4 08/25/21 15:07: PT 14.0, INR 1.1, APTT 29.4 Assessment & Plan Assessment/Plan (1) Unstable angina: PLAN: Plan Unstable angina -Patient with history of coronary disease status post CABG with occluded WILKES to LAD-2007 -Last cath in 2018 showed anywhere from 30 to 50% stenosis depending on the vessel -Cycle cardiac enzymes -No acute changes on EKG -Start heparin drip -Start nitro drip -Start metoprolol 25 mg p.o. twice daily -Start atorvastatin 80 mg daily -Start aspirin 81 mg daily -Check lipids -Glucose normal on admission -Patient is noncompliant with medications at home -We will check tox screen with history of polysubstance abuse -Consult cardiology--> Case discussed with Jordyn Dobbs-SULLY CAD -Noncompliant with treatment -See above History of hypertension -Patient's not currently on any medications -Nitro drip -Metoprolol as above Hyperlipidemia -Check lipids -Start atorvastatin 80 mg daily History of chronic hepatitis C -Secondary to history of IVDU -Patient reports he is currently clean History of polysubstance abuse -Patient only reports marijuana use at this time -Check tox screen Obesity -Recommend weight loss -BMI 30.3 -Complicates treatment, prognosis, outcomes Tobacco abuse -Recommend cessation -Patient denies need for nicotine replacement DVT prophylaxis -Heparin drip CODE STATUS -Full code Charges/Coding Visit Charges Inpatient E&M: 24891 Init Hosp L3
[2021-08-25 17:19] LABS: Reflex Troponin-HS? (from REC) Y
[2021-08-25] MEDS: Heparin Injection (Vial) 5,000 UNIT/ML VIAL 6000 UNIT IV (17:44)
[2021-08-25] MEDS: 0.9% Saline Lock 10 ML Syringe IV (17:44)
[2021-08-25] MEDS: HEPARIN/D5w 25,000 UNITS 25,000 UNITS/250 ML IV.SOLN. 12 UNITS IV (17:50)
[2021-08-25] MEDS: Nitroglycerin Infusion 250 ML 3 MG CONT INF (17:51)
[2021-08-25 18:14] LABS: Troponin-I HS 4 pg/mL (3.0-78.0)
--- NOTE | 2021-08-25 18:46 | NURSING ---
Reviewed charting with Serge Wilson RN
--- NOTE | 2021-08-25 18:57 | ECHOD_ITS ---
Reason For Study: Chest pain, CAD Procedure This was a 2D Doppler, Color Flow transthoracic echocardiogram. The exam was of good technical quality. Exam performed portable in patient room. Left Ventricle Normal LV size. Left ventricular systolic function is normal. The estimated ejection fraction is 55 %. No evidence for diastolic dysfunction. No regional wall motion abnormalities noted. Right Ventricle Normal RV size. Normal systolic function. Atria Normal left atrium. Normal right atrium. No doppler evidence for ASD. Mitral Valve There is no mitral annular calcification. Normal mitral valve. Trivial mitral valve insufficiency. Tricuspid Valve Normal tricuspid valve. Mild tricuspid valve insufficiency. Right ventricular systolic pressure estimated to be 28 mmHg. Aortic Valve Trisinus/trileaflet aortic valve. Normal aortic valve. Pulmonic Valve Normal pulmonic valve. Mild (1+) pulmonic valve insufficiency. Great Vessels Normal sized aortic root. Pericardium/Pleural No pericardial effusion. MMode/2D Measurements & Calculations LVIDd: 4.5 cm IVSd: 1.0 cm Ao root diam: 2.4 cm LVIDs: 3.0 cm LVPWd: 1.0 cm RVDd: 3.3 cm FS: 32.9 % LAV(MOD-bp): 38.4 ml LVAd ap4: 29.1 cm2 LVAd ap2: 32.6 cm2 LAV(MOD-bp) Indexed: 20.2 ml/m2 LVLd ap4: 8.0 cm LVLd ap2: 8.3 cm LAV(MOD-sp2): 37.1 ml EDV(MOD-sp4): 87.0 ml EDV(MOD-sp2): 109.0 ml LAV(MOD-sp4): 37.1 ml EDV(sp4-el): 89.7 ml EDV(sp2-el): 109.1 ml LVAs ap4: 18.3 cm2 LVAs ap2: 20.3 cm2 LVLs ap4: 7.0 cm LVLs ap2: 7.6 cm ESV(MOD-sp4): 41.8 ml ESV(MOD-sp2): 46.7 ml ESV(sp4-el): 40.4 ml ESV(sp2-el): 46.4 ml EF(MOD-sp4): 51.9 % EF(MOD-sp2): 57.2 % EF(sp4-el): 54.9 % SV(MOD-sp4): 45.2 ml SV(MOD-sp2): 62.4 ml SV(sp4-el): 49.3 ml LA dimension(2D): 3.7 cm LA A4 area: 15.0 cm2 RA A4 area: 12.9 cm2 Time Measurements MV dec time: 0.16 sec Doppler Measurements & Calculations MV E max awais: 90.9 cm/sec Lat Peak E' Awais: 15.6 cm/sec Med Peak E' Awais: 10.4 cm/sec MV A max awais: 43.6 cm/sec E/E' lat: 5.8 E/E' med: 8.7 MV E/A: 2.1 MV dec slope: 585.7 cm/sec2 Ao V2 max: 92.6 cm/sec LV V1 max: 72.6 cm/sec Ao max P.4 mmHg LV V1 max P.1 mmHg LV V1 mean P.2 mmHg LV V1 mean: 50.4 cm/sec LV V1 VTI: 16.2 cm PA V2 max: 86.7 cm/sec TR max awais: 251.2 cm/sec TR max P.2 mmHg ECHO/Echo Complete Interpretation Summary Left ventricular systolic function is normal. The estimated ejection fraction is 55 %. Trivial mitral valve insufficiency. Mild tricuspid valve insufficiency. Mild (1+) pulmonic valve insufficiency. Right ventricular systolic pressure estimated to be 28 mmHg. No evidence for diastolic dysfunction. Ordering Physician: Catalino Antunez Referring Physician: Natalia Xiao Performed By: Emelyn Dempsey, SILVIA
--- NOTE | 2021-08-25 18:58 | CON.PCM.CA_ITS ---
Assessment & Plan Assessment/Plan (1) Unstable angina: PLAN: The patient presents with symptoms concerning for unstable angina pectoris. He does have chest discomfort concerning for unstable angina pectoris. His discomfort does not appear to be classic for acute myopericarditis. He does not have physical examination findings or other objective findings for acute myopericarditis. At the present time he has been evaluated for a noncardiovascular issues/known CAD issues with chest x-ray and chest CT scan. These have been unremarkable so far with another etiology to explain his symptoms. From a cardiac standpoint he is being monitored. His initial cardiac enzymes are negative. His ECGs demonstrated no acute changes. He has been placed on medical management. He states he does feel improved after initiation of medications including IV nitroglycerin and IV heparin. He has been recommended for further evaluation with diagnostic cardiac catheterization. The procedure and risks of been discussed with him. He was agreeable to this approach. (2) Arteriosclerosis of coronary artery in patient with history of myocardial infarction: PLAN: The pain does have a history of premature CAD as noted. He has undergone CABG with a WILKES to the LAD at a young age. His subsequent invasive studies have demonstrated his WILKES graft to be atretic he had his LAD to be patent as well as not having other angiographically significant appearing disease. At the present time he will continue risk factor evaluation and care. He will continue medical therapy as deemed appropriate. He will be asked to have a transthoracic echocardiogram to assess his left ventricular wall motion and systolic function. He has been recommended for further evaluation with diagnostic cardiac catheterization. (3) S/P CABG x 1: PLAN: His CABG report is as noted. His subsequent studies have demonstrated his WILKES to be atretic yet his LAD to be patent. (4) HLD (hyperlipidemia): QUALIFIERS: Hyperlipidemia type: unspecified Qualified Code(s): E78.5 - Hyperlipidemia, unspecified PLAN: He should be reassessed with fasting lipid profile and continue medical therapy as deemed appropriate. (5) HTN (hypertension): QUALIFIERS: Hypertension type: essential hypertension Qualified Code(s): I10 - Essential (primary) hypertension PLAN: His blood pressure will need to be monitored with adjustment of medicines as deemed appropriate. (6) Chronic hepatitis C: PLAN: He has a history of chronic hepatitis. He will need to continue evaluation care per internal medicine for this as deemed appropriate. (7) Smoking addiction: PLAN: He has a history of tobacco abuse. He has been counseled on the need to discontinue tobacco intake. Addt'l Comments The patient's case has been discussed and reviewed with the patient and JUSTEN Dawkins. This note was generated using a voice recognition system and there may be incorrect words, spelling or punctuation that were not noted when reviewing the office note prior to saving. HPI Consult Data Date of Consult: 08/25/21 HPI Narrative HPI Narrative: MANJIT RAMÍREZ, is a 41 year old white male who presents for cardiovascular consultation based upon concerns of unstable angina pectoris superimposed upon a history of premature CAD status post remote CABG with WILKES to the LAD, hy perlipidemia, and hypertension. He states he was diagnosed with premature CAD at a young age. He is he was diagnosed with a maker lesion. He subsequently underwent CABG with a WILKES to the LAD at [facility] in [place], [place] in 2007. Over time he was followed by [facility] cardiology and subsequently he was evaluated by [facility]. Over time this included noninvasive and repeat invasive studies. He was found to have the WILKES to the LAD to be atretic and nonfunctional. He was not found to require additional catheter-based or repeat surgical based revascularization. He was treated medically. He states recently he has been having accelerating chest discomfort. He states it feels as if there is a pressure or a weight on his chest. It has been radiating to his shoulders. It has been associated with nausea and diaphoresis. He states it has not included radiation to the neck and jaw as he originally did in 2007. He notes that his chest discomfort does not necessarily improve w hen he sits up/leans forward. He has not complained of orthopnea or PND or peripheral pitting edema. There has been no near-syncope or syncope. Based upon his symptoms he presented to the [facility] emergency department on 08-23-2021. His Emergency Department evaluation was reportedly unremarkable based upon cardiac enzymes and ECG. At that time he also underwent a chest CTA scan to evaluate for great vessel disease and thromboembolic disease. The scan was considered negative for great vessel disease and thromboembolic disease. He was released home for outpatient follow-up. He presented to the office this day for outpatient follow-up. He was evaluated by JUSTEN Dawkins. During that evaluation he presented additional history with respect to his symptoms and the use of nitroglycerin sublingual providing him partial relief. An ECG was performed that demonstrated sinus rhythm with no acute ECG changes. He was subsequently recommended for repeat emergency department evaluation and consideration for inpatient evaluation with diagnostic cardiac catheterization. Since being placed in the hospital he has had repeat cardiac enzymes. They have been negative. His ECGs have demonstrated sinus rhythm with no acute ECG changes. Based upon his ongoing symptoms he has been placed on medical management with IV nitroglycerin and IV heparin. He states after initiation of IV nitroglycerin his symptoms have improved. [facility] Medical History Arteriosclerosis of coronary artery in patient with history of myocardial infarction Bipolar disorder Chest pain Chronic hepatitis C COPD (chronic obstructive pulmonary disease) Coronary artery disease Dyspnea on exertion Hepatitis History of non-ST elevation myocardial infarction (NSTEMI) History of ST elevation myocardial infarction (STEMI) (02/03/08) HLD (hyperlipidemia) HTN (hypertension) Myocardial infarct Smoker Smoking addiction Home Medications NK 08/25/21 [History Last Taken Unknown] Allergy/AdvReac Type Severity Reaction Status Date / Time No Known Allergies Allergy Verified 08/25/21 14:48 Family History Father CAD (coronary artery disease) Hypertension Hyperlipidemia COPD (chronic obstructive pulmonary disease) Sudden cardiac Stented coronary artery S/P CABG x 3 Surgical History History of left heart catheterization (12/13/18) S/P CABG x 1 (02/03/08) Social History (Updated 08/25/21 @ 17:[address] 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 Smoking Status: Current every day smoker tobacco type: cigarettes Smoking packs per day: 1 Smoking cigarettes per day: 20.0 alcohol intake: never substance use type: marijuana ROS Constitutional Constitutional: Reports as per HPI Eyes Eyes: Reports as per HPI ENT HEENT: Reports as per HPI Cardiovascular Cardiovascular: Reports chest pain at rest, diaphoresis and nausea Respiratory/Chest Respiratory/Chest: Reports as per HPI Gastrointestinal Gastrointestinal: Reports nausea Genitourinary Genitourinary: Reports as per HPI Musculoskeletal Musculoskeletal: Reports as per HPI Integumentary Integumentary: Reports as per HPI Neurologic Neurologic: Reports as per HPI Physical Exam Const alert, oriented x3, no apparent distress and healthy appearing HEENT normocephalic, head/scalp atraumatic and hearing grossly normal bilaterally Eyes PERRL, EOMs intact bilaterally, conjunctivae normal and no scleral icterus Neck full ROM, supple and no JVD Carotids: normal carotid upstroke Chest Chest: midline sternotomy incision Resp normal respiratory effort and clear to auscultation bilaterally Cardio regular rate, regular rhythm, S1 normal heart sound and S2 normal heart sound GI normal to inspection, nondistended, normoactive bowel sounds Extremity no pedal edema Skin no rashes or lesions noted Psych mental status grossly normal Risk Stratification Risk Stratification Applicable: Yes Age >/= 65: No >/= 3 CAD Risk Factors (HTN, HLD, DM, family hx of CAD, or current smoker): Yes Aspirin Use in the Past 7 Days: No Severe Angina (>/= episodes in 24 hours): Yes EKG ST Changes >/= 0.5mm: No Positive Cardiac Marker: No GAEL Risk Stratification Score: 2 GAEL % Risk: 8% Risk Procedure Criteria Type of Procedure Procedure Type: Elective Elective Risks - COVID COVID Risk Discussion: The surgeon/proceduralist and patient have discussed in detail the risk of exposure to and/or potential harm posed by the COVID-19 virus with having a surgery/procedure at this time versus the risk of delaying the florez rgery/procedure. It is not possible to know either the risk of delaying the surgery or procedure or chance of getting an infection with perfect accuracy, but a joint decision was made between the patient and the surgeon/proceduralist to proceed at this time with the scheduled surgery/procedure as indicated on the consent form. Objective Data Vital Signs: Vital Signs Temp Pulse Resp BP Pulse Ox O2 Del Method 97.1 F L 78 18 123/84 H 100 Room Air 08/25/21 17:08 08/25/21 18:00 08/25/21 18:00 08/25/21 18:00 08/25/21 18:00 08/25/21 18:00 Oxygen Delivery Method Room Air Weight: 182 lb 4.8 oz Body Mass Index (BMI) 30.3 Intake & Output: Intake and Output for Last 24 Hours 08/23/21 08/24/21 08/25/21 23:59 23:59 23:59 Intake Total 0.45 / 0.45 Balance 0.45 / 0.45 Lab / Micro Data Result Diagrams: 08/25/21 15:07 08/25/21 15:07 Labs: Laboratory Results - last 24 hr 08/25/21 15:07: WBC 8.0, RBC 4.97, Hgb 15.9, Hct 46.1, MCV 92.8, MCH 32.0, MCHC 34.5, RDW Std Deviation 43.2, RDW Coeff of Rose 12.7, Plt Count 201, MPV 10.9, Im mature Gran % (Auto) 0.600, Neut % (Auto) 55.7, Lymph % (Auto) 35.5, [place] % (Auto) 6.5, Eos % (Auto) 1.1, Baso % (Auto) 0.6, Absolute Neuts (auto) 4.4, Absolute Lymphs (auto) 2.84, Nucleated RBC % 0 08/25/21 15:07: Sodium 139, Potassium 3.9, Chloride 107, Carbon Dioxide 25.0, Anion Gap 7, BUN 8, Creatinine 0.72, Estim Creat Clear Calc 119.82, Est GFR (MDRD) Af Amer 157, Est GFR (MDRD) Non-Af 130, BUN/Creatinine Ratio 11.2, Glucose 87, Calcium 9.1, Troponin I High Sens 4 08/25/21 15:07: PT 14.0, INR 1.1, APTT 29.4 08/25/21 17:48: Troponin I High Sens 4 Cardiology Labs/Tests 08/25/21 15:07: WBC 8.0, RBC 4.97, Hgb 15.9, Hct 46.1, MCV 92.8, MCH 32.0, MCHC 34.5, Plt Count 201, MPV 10.9, Immature Gran % (Auto) 0.600, Neut % (Auto) 55.7, Lymph % (Auto) 35.5, [place] % (Auto) 6.5, Eos % (Auto) 1.1, Baso % (Auto) 0.6, Absolute Neuts (auto) 4.4, Nucleated RBC % 0 08/25/21 15:07: Sodium 139, Potassium 3.9, Chloride 107, Carbon Dioxide 25.0, Anion Gap 7, BUN 8, Creatinine 0.72, Est GFR (MDRD) Af Amer 157, Est GFR (MDRD) Non-Af 130, BUN/Creatinine Ratio 11.2, Glucose 87, Calcium 9.1 08/25/21 15:07: PT 14.0, INR 1.1, APTT 29.4 Rhythm: Sinus rhythm EKG: Sinus rhythm; PAC; septal OK of indeterminate age cannot be excluded ECHO: 11-15-2018 Interpretation Summary The estimated ejection fraction is 60 %. Normal diastology for age. Trivial tricuspid valve insufficiency. Right ventricular systolic pressure estimated to be 19 mmHg. Compared to echo report dated 08/09/2016, LV function has remained the same, and RVSP has improved from 38 to 19 mm Hg. The study was technically difficult. Contrast injection was performed. Stress Test: Pharmacologic stress nuclear imaging study: 03-16-2016: [facility] Conclusions: 1. Perfusion study: Normal study 2. Functional capacity not applicable (pharmacological) 3. Left ventricle was normal in size. The left ventricular systolic function is normal. 4. The stress LVEF is 72% 5. There is no scintigraphic evidence for inducible ischemia 6. This is a low risk scan Dobutamine stress echocardiogram: 02-17-2019 Stress Results ? Protocol:? Dobutatmine Stress Echo? Maximum Predicted HR: ? 184 bpm ? Target HR: 156 bpm? % Maximum Predicted HR: 88 % ? DurationHeart Rate ? Stage? (mm:ss) ? (bpm) ? ? BP ? Dose ? ? Comment ? BASELINE? 61? ? 127/67 ? STAGE 1 ? 3:00? ? ? 56? ? 144/66 10.00 ? STAGE 2 ? 3:00? ? ? 73? ? 171/73 20.00 ? STAGE 3 ? 3:00 ? ? 110 ? ? ? / ? 30.00 ? STAGE 4 ? 4:26 ? ? 162? ? 182/96 40.000.75 MG ATROPINE ? RECOVERY? 98? ? 148/103 ? Stress Duration: ? 13:26 mm:ss ? Maximum Stress HR: 162 bpm Baseline Echocardiogram Findings The estimated ejection fraction is 65 %. ? Stress Echo Wall motion Data ? Resting WM ? Intermediate WM ? Stress WM ? Resting Wall Motion? Wall Motion Stress No regional wall motion? No regional wall motion abnormalities noted. ? abnormalities noted. EKG Data The baseline ECG displays normal sinus rhythm. The patient was titrated from 10 mcg to a maximum of 40 mcg of dobutamine during the stress. The maximum heart rate attained was 162 beats per minute. This was 88% of maximum predicted heart rate. At peak infusion, upsloping ST changes only were noted, which did not meet the criteria for ischemia. No arrhythmias noted. No clinical angina was noted. Interpretation Summary The estimated ejection fraction is 65 %. Normal, adequate, dobutamine echocardiogram. Negative for ischemia by EKG and echocardiographic criteria. No anginal symptoms noted. No arrhythmias noted. Hypertensive blood pressure response to dobutamine. Test terminated due to the attainment target heart rate. Final LVEF is 75%. Patient tolerated procedure well. No complications noted. Ordering Physician: Otf Saenz Referring Physician: Otf Saenz Cardiac Cath: 02-03-2008: [place], [place] Left ventricle: Subtle hypokinesis: Anterior wall and apex: Ejection fraction reported at 60% Left main coronary artery: Normal LAD: [place]: 90% stenosis LCx: Proximal: 0 to 10% plaque OM1: 0 to 10% plaque RCA: Dominant vessel: Mid 10 to 25% plaque Intermediate ramus: Normal Plan: 1. Intra-aortic balloon pump 2. CABG 08-10-2016: [facility] Left ventricle: Normal: LVEF 55% Left main coronary artery: Angiographically normal Left anterior descending coronary artery: Mild luminal regularities Left circumflex coronary artery: Mild luminal irregularities Right coronary artery: Mild luminal irregularities less than 30% WILKES graft to the LAD: Atretic Eyad Segovia MD 12-13-2018: [facility] CONCLUSIONS Normal LV size, wall motion,and systolic function Non obstructive coronary arteries RECOMMENDATIONS Risk factor modification Management as per referring [employer] Stress echo in 2 weeks to eval inferior/posterior wall.? If abnormal, will return for elective PCI of RCA. Manual sheath removal. Pt was having difficulty laying still throughout the procedure despite 4mg IV versed. D/w Dr Ricardo. DESCRIPTION OF? PROCEDURE The patient arrived to the procedure lab. The risks and benefits of the proc edure as well as a full description of our services here and current unavailability of surgical backup were fully explained to the patient and/or their significant other prior to the catheterization. The Timeout was completed, verifying the correct patient and procedure. The patient's procedural site was prepped and draped in the usual fashion. Local anesthetic was given subcutaneously to right groin region with Lidocaine 2%. Using a modified Seldinger technique, arterial access was obtained via the right femoral artery, a 4Fr sheath was inserted? Left Coronary Artery selective angiography was performed in multiple views using a 4 Fr. JL5 catheter. Right Coronary Artery selective angiography was then performed in multiple views using a 4 Fr. 3DRC catheter. Left internal mammary artery graft to the LAD selective angiography was performed in multiple views using a 4 Fr. 3DRC catheter. Right Coronary Artery selective angiography was then performed in multiple views using a 4 Fr. AR MOD 2 catheter. Left Ventriculography was performed in MONTALVO projection using a 4 Fr. Pigtail catheter. LV to AO pullback pressures were then recorded.The arterial sheath was pulled and manual compression applied until hemostasis is achieved. CORONARY ANGIOGRAPHY DOMINANCE:? Right Dominant LEFT HEART ASSESSMENT Left Ventricular Ejection Fraction: by LV Gram 65 % Normal LV wall motion Normal Left Ventricular systolic function LVEDP: 6 mmHg Normal Left Ventricular End Diastolic Pressure LEFT MAIN: Angiographically normal LEFT ANTERIOR DESCENDING ARTERY: MID LAD: Mild luminal irregularities less than 30% CIRCUMFLEX ARTERY: MID CIRC: Mild luminal irregularities less than 30% DISTAL CIRC: Mild luminal irregularities less than 30% RAMUS: Moderate luminal irregularities up to 50%, ostial RIGHT CORONARY ARTERY: PROX RCA: Mild luminal irregularities less than 30% MID RCA: Moderate luminal irregularities up to 50% DISTAL RCA: Moderate luminal irregularities up to 50% GRAFTS: ?WILKES graft to the LAD is totally occluded Otf Saenz MD CT Surgery: 02-03-2008 Preoperative diagnosis: 1. Critical ostial left anterior descending coronary artery disease 2. Unstable angina, [place] heart association class IV 3. Preoperative intraoperative balloon pump for unstable angina 4. Ongoing heavy tobacco abuse 5. Acute ST segment elevation myocardial infarction Procedure: 1. Urgent single-vessel coronary artery bypass grafting using left internal mammary artery to the left anterior descending coronary artery without the use of cardiopulmonary bypass Chest CT Scan: FINDINGS: Status post median sternotomy. Normal enhancement of the main pulmonary artery and right and left pulmonary arteries.? Normal enhancement of the bilateral peripheral pulmonary arteries.? There is no demonstrated pulmonary embolism. Normal thoracic aorta and visualized great vessels. There is no demonstrated aortic dissection. Normal heart and pericardium. Normal mediastinum.? Normal hilar regions. Normal visualized trachea and bronchi.? The lungs are well expanded. Normal pulmonary parenchyma. Normal pleura. Normal chest wall structures. Normal osseous structures. Normal visualized upper abdomen. CT/CTA Chest W/WO Contrast IMPRESSION: Normal CTA chest examination, without a demonstrated pulmonary embolism or arterial dissection. ? Electronically Signed: Miguel Wilson MD at 17:08 EDT
[2021-08-25] MEDS: Metoprolol Tartrate 25 MG Tablet PO (21:18)
[2021-08-25] MEDS: Atorvastatin Calcium 80 MG Tablet PO (21:18)
[2021-08-25] MEDS: Acetaminophen 325 MG Tablet 650 MG PO (21:18)
[2021-08-25 22:07] LABS: Troponin-I HS 5 pg/mL (3.0-78.0)
[2021-08-25 22:13] LABS: Partial Thromboplast Time 137.5 Seconds (24.1-36.2)
--- NOTE | 2021-08-25 22:16 | NURSING ---
Lab called critical ptt of 137.5. Informed Pt's nurse of level for adjustment
[2021-08-26] VITALS (20 sets, daily range): BP systolic 101–134; BP diastolic 55–82; PULSE 54–76; RESP 14–18; TEMP 36.4–36.6; O2SAT 94–100
[2021-08-26] MEDS: 0.9% Normal Saline 1,000 ML 70 ML IV (00:36)
[2021-08-26] MEDS: 0.9% Saline Lock 10 ML Syringe IV (00:38)
--- NOTE | 2021-08-26 05:55 | EKG12_ITS ---
Test Reason : AM EKG Blood Pressure : / mmHG Vent. Rate : 059 BPM Atrial Rate : 059 BPM P-R Int : 140 ms QRS Dur : 080 ms QT Int : 436 ms P-R-T Axes : 051 054 058 degrees QTc Int : 431 ms Sinus bradycardia with sinus arrhythmia Septal infarct , age undetermined Abnormal ECG When compared with ECG of 25-AUG-2021 14:54, MANUAL COMPARISON REQUIRED, DATA IS UNCONFIRMED Confirmed by OMAR CASAS, CHERRI ([id number]), editor & co founder JANAY CRUZ ([id number]) on 08/31/2021 12:53:34 PM Referred By: Derrick Confirmed By:CHERRI NELSON MD
[2021-08-26 06:31] LABS: Absolute Lymphocyte Count 2.15 X10^3/uL (0.83-4.51); Basophil# 0.05 X10^3/uL; Basophil% 0.9 % (0-1); Eosinophil# 0.16 X10^3/uL; Eosinophils% 2.7 % (0-5); Hematocrit 44.4 % (40-54); Hemoglobin 15.3 g/dL (13.0-16.5); Lymphocyte # 2.15 X10^3/ul (0.83-4.51); Lymphocyte % 36.8 % (19-41); Mean Corp Hgb Conc 34.5 g/dL (32-36); Mean Corpuscular Hgb 32.7 pg (27.0-32.0); Mean Corpuscular Volume 94.9 fL (80-94); Mean Platelet Vol. 11.2 fl (6.2-12.0); Monocyte# 0.49 X10^3/uL; Monocyte% 8.4 % (0-10); NRBC Flagged by Analyzer 0 % (0-5); Neutrophil # 2.95 X10^3/uL (2.7-7.7); Neutrophil % 50.5 % (47-70); Platelet Count 168 K/mm3 (150-450); RBC Distribution Width SD 45.8 fl (35.1-43.9); Red Blood Count 4.68 M/mm3 (4.6-6.2); White Blood Count 5.8 K/mm3 (4.4-11.0)
[2021-08-26] MEDS: Aspirin E.C. 81 MG Tablet PO (06:57)
[2021-08-26] MEDS: Metoprolol Tartrate 25 MG Tablet PO (06:57)
[2021-08-26 07:00] LABS: ALB/GLOB Ratio 0.9 RATIO (0.9-2.4); AST(SGOT) 413 U/L (15-37); Alanine Aminotransfer ALT/SGPT 503 U/L (16-61); Alkaline Phosphatase 85 U/L (45-117); Anion Gap 3 (5-15); BUN 10 mg/dL (7-18); BUN/Creat Ratio 14.8 RATIO (10-20); Calcium,Total 8.6 mg/dL (8.5-10.1); Chloride 109 mmol/L (98-107); Cholesterol 126 mg/dL (200); Creatinine, Serum 0.68 mg/dL (0.70-1.30); EST Glomerular Filtration Rate 138 mL/min (>60); Est Glom Filt Rate - Afr Amer 167 mL/min (>60); Estimated Creatinine Clearance 126.87 ml/min; Globulin 3.3 g/dL (2.2-4.2); Glucose 125 mg/dL (74-106); High Density Lipoprotein 27 mg/dL; Magnesium 2.1 mg/dL (1.6-2.6); Phosphorus 2.7 mg/dL (2.5-4.9); Protein, Total 6.3 g/dL (6.4-8.2); Sodium Level 138 mmol/L (136-145); Triglycerides 221 mg/dL; Very Low Density Lipoprotein 44 mg/dL (5-40)
--- NOTE | 2021-08-26 07:31 | PCM.PN.CARD ---
Subjective Subjective The patient appears to been resting comfortably on his current medical therapy. Objective Data Vital Signs: Vital Signs Temp Pulse Resp BP Pulse Ox O2 Del Method 97.9 F 63 17 104/62 97 Room Air 08/26/21 07:00 08/26/21 07:00 08/26/21 07:00 08/26/21 07:00 08/26/21 07:00 08/26/21 07:00 Oxygen Delivery Method Room Air Weight: 182 lb 4.8 oz Body Mass Index (BMI) 30.3 Intake & Output: Intake and Output for Last 24 Hours 08/24/21 08/25/21 08/26/21 23:59 23:59 23:59 Intake Total 70.05 / 73.05 37.35 / 37.35 Output Total 100 / 100 500 / 500 Balance -29.95 / -26.95 -462.65 / -462.65 Lab / Micro Data Result Diagrams: 08/26/21 06:15 08/26/21 06:15 Labs: Laboratory Results - last 24 hr 08/25/21 15:07: WBC 8.0, RBC 4.97, Hgb 15.9, Hct 46.1, MCV 92.8, MCH 32.0, MCHC 34.5, RDW Std Deviation 43.2, RDW Coeff of Rose 12.7, Plt Count 201, MPV 10.9, Immature Gran % (Auto) 0.600, Neut % (Auto) 55.7, Lymph % (Auto) 35.5, [place] % (Auto) 6.5, Eos % (Auto) 1.1, Baso % (Auto) 0.6, Absolute Neuts (auto) 4.4, Absolute Lymphs (auto) 2.84, Nucleated RBC % 0 08/25/21 15:07: Sodium 139, Potassium 3.9, Chloride 107, Carbon Dioxide 25.0, Anion Gap 7, BUN 8, Creatinine 0.72, Estim Creat Clear Calc 119.82, Est GFR (MDRD) Af Amer 157, Est GFR (MDRD) Non-Af 130, BUN/Creatinine Ratio 11.2, Glucose 87, Calcium 9.1, Troponin I High Sens 4 08/25/21 15:07: PT 14.0, INR 1.1, APTT 29.4 08/25/21 17:48: Troponin I High Sens 4 08/25/21 21:30: Troponin I High Sens 5 08/25/21 21:30: APTT 137.5 H* 08/26/21 06:15: WBC 5.8, RBC 4.68, Hgb 15.3, Hct 44.4, MCV 94.9 H, MCH 32.7 H, MCHC 34.5, RDW Std Deviation 45.8 H, RDW Coeff of Rose 13.0, Plt Count 168, MPV 11.2, Immature Gran % (Auto) 0.700, Neut % (Auto) 50.5, Lymph % (Auto) 36.8, [place] % (Auto) 8.4, Eos % (Auto) 2.7, Baso % (Auto) 0.9, Absolute Neuts (auto) 3.0, Absolute Lymphs (auto) 2.15, Nucleated RBC % 0 08/26/21 06:15: Sodium 138, Potassium 4.0, Chloride 109 H, Carbon Dioxide 26.0, Anion Gap 3 L, BUN 10, Creatinine 0.68 L, Estim Creat Clear Calc 126.87, Est GFR (MDRD) Af Amer 167, Est GFR (MDRD) Non-Af 138, BUN/Creatinine Ratio 14.8, Glucose 125 H, Calcium 8.6, Phosphorus 2.7, Magnesium 2.1, Total Bilirubin 0.70, AST 413 H, ALT 503 H, Alkaline Phosphatase 85, Total Protein 6.3 L, Albumin 3.0 L, Globulin 3.3, Albumin/Globulin Ratio 0.9, Triglycerides 221 H, Cholesterol 126, LDL Cholesterol 55, VLDL Cholesterol 44 H, HDL Cholesterol 27 L Cardiology Labs/Tests 08/25/21 15:07: WBC 8.0, RBC 4.97, Hgb 15.9, Hct 46.1, MCV 92.8, MCH 32.0, MCHC 34.5, Plt Count 201, MPV 10.9, Immature Gran % (Auto) 0.600, Neut % (Auto) 55.7, Lymph % (Auto) 35.5, [place] % (Auto) 6.5, Eos % (Auto) 1.1, Baso % (Auto) 0.6, Absolute Neuts (auto) 4.4, Nucleated RBC % 0 08/25/21 15:07: Sodium 139, Potassium 3.9, Chloride 107, Carbon Dioxide 25.0, Anion Gap 7, BUN 8, Creatinine 0.72, Est GFR (MDRD) Af Amer 157, Est GFR (MDRD) Non-Af 130, BUN/Creatinine Ratio 11.2, Glucose 87, Calcium 9.1 08/25/21 15:07: PT 14.0, INR 1.1, APTT 29.4 08/25/21 21:30: APTT 137.5 H* 08/26/21 06:15: WBC 5.8, RBC 4.68, Hgb 15.3, Hct 44.4, MCV 94.9 H, MCH 32.7 H, MCHC 34.5, Plt Count 168, MPV 11.2, Immature Gran % (Auto) 0.700, Neut % (Auto) 50.5, Lymph % (Auto) 36.8, [place] % (Auto) 8.4, Eos % (Auto) 2.7, Baso % (Auto) 0.9, Absolute Neuts (auto) 3.0, Nucleated RBC % 0 08/26/21 06:15: Sodium 138, Potassium 4.0, Chloride 109 H, Carbon Dioxide 26.0, Anion Gap 3 L, BUN 10, Creatinine 0.68 L, Est GFR (MDRD) Af Amer 167, Est GFR (MDRD) Non-Af 138, BUN/Creatinine Ratio 14.8, Glucose 125 H, Calcium 8.6, Phosphorus 2.7, Magnesium 2.1, Total Bilirubin 0.70, Triglycerides 221 H, Cholesterol 126, LDL Cholesterol 55, VLDL Cholesterol 44 H, HDL Cholesterol 27 L Rhythm: EKG: ECHO: Stress Test: Cardiac Cath: PCI: CT Surgery: Holter monitor: EPS: PPM: CXR: Chest CT Scan: Physical Exam Const alert, oriented x3, no apparent distress and healthy appearing HEENT normocephalic, head/scalp atraumatic and hearing grossly normal bilaterally Eyes PERRL, EOMs intact bilaterally, conjunctivae normal and no scleral icterus Neck full ROM, supple and no JVD Carotids: normal carotid upstroke Chest Chest: midline sternotomy incision Resp normal respiratory effort and clear to auscultation bilaterally Cardio regular rate, regular rhythm, S1 normal heart sound and S2 normal heart sound GI normal to inspection, nondistended, normoactive bowel sounds Extremity no pedal edema Skin no rashes or lesions noted Psych mental status grossly normal Assessment & Plan Assessment/Plan (1) Unstable angina: PLAN: The patient presents with symptoms concerning for unstable angina pectoris. He does have chest discomfort concerning for unstable angina pectoris. His discomfort does not appear to be classic for acute myopericarditis. He does not have physical examination findings or other objective findings for acute myopericarditis. At the present time he has been evaluated for a noncardiovascular issues/known CAD issues with chest x-ray and chest CT scan. These have been unremarkable so far with another etiology to explain his symptoms. From a cardiac standpoint he is being monitored. His initial cardiac enzymes remain negative. His repeat ECG demonstrated no acute changes. He has been placed on medical management. He states he does feel improved after initiation of medications including IV nitroglycerin and IV heparin. He has been recommended for further evaluation with diagnostic cardiac catheterization. The procedure and risks of been discussed with him. He was agreeable to this approach. (2) Arteriosclerosis of coronary artery in patient with history of myocardial infarction: PLAN: The pain does have a history of premature CAD as noted. He has undergone CABG with a WILKES to the LAD at a young age. His subsequent invasive studies at [facility] have demonstrated his WILKES graft to be atretic and his LAD to be patent as well as not having other angiographically significant appearing disease. At the present time he will continue risk factor evaluation and care. He will continue medical therapy as deemed appropriate. He is pending further evaluation of his left ventricular wall motion and systolic function with a transthoracic echocardiogram. He has been recommended for further evaluation with diagnostic cardiac catheterization. (3) S/P CABG x 1: PLAN: His CABG report is as noted. His subsequent studies have demonstrated his WILKES to be atretic yet his LAD to be patent. (4) HLD (hyperlipidemia): QUALIFIERS: Hyperlipidemia type: unspecified Qualified Code(s): E78.5 - Hyperlipidemia, unspecified PLAN: He should be reassessed with fasting lipid profile and continue medical therapy as deemed appropriate. (5) HTN (hypertension): QUALIFIERS: Hypertension type: essential hypertension Qualified Code(s): I10 - Essential (primary) hypertension PLAN: His blood pressure will need to be monitored with adjustment of medicines as deemed appropriate. (6) Chronic hepatitis C: PLAN: He has a history of chronic hepatitis. He will need to continue evaluation care per internal medicine for this as deemed appropriate. (7) Smoking addiction: PLAN: He has a history of tobacco abuse. He has been counseled on the need to discontinue tobacco intake. Addt'l Comments This note was generated using a voice recognition system and there may be incorrect words, spelling or punctuation that were not noted when reviewing the office note prior to saving. Procedure Criteria Type of Procedure Procedure Type: Elective Elective Risks - COVID COVID Risk Discussion: The surgeon/proceduralist and patient have discussed in detail the risk of exposure to and/or potential harm posed by the COVID-19 virus with having a surgery/procedure at this time versus the risk of delaying the surgery/procedure. It is not possible to know either the risk of delaying the surgery or procedure or chance of getting an infection with perfect accuracy, but a joint decision was made between the patient and the surgeon/proceduralist to proceed at this time with the scheduled surgery/procedure as indicated on the consent form.
--- NOTE | 2021-08-26 09:32 | CASEMGMT ---
Tertiary facilities in-network with patient's insurance: [facility], [facility], [facility], [facility], , [facility], [place], [facility]
--- NOTE | 2021-08-26 09:51 | CL.D_ITS ---
Patient Name: MANJIT RAMÍREZ Study Date: 08/26/2021 Performing: Catalino Antunez MD Ht: 64.96 inches 165 cm : 1980 Wt: 182.98 lbs 83 kg Age: 41 Gender: male BSA: 1.9 PROCEDURE(S) PERFORMED DC02-([id number])LHC/COR IC10-([id number])FFR, CORONARY OR GRAFT, INITIAL VESSEL CLINICAL PROFILE AND INDICATIONS Indications: Worsening Angina, Suspected CAD Heart Failure: None Stress/Imaging Stress/Image Study Performed: No Angina Classification Anginal Classification w/in 2 Weeks: CCS IV CAD Presentations: Unstable angina. CONCLUSIONS Elevated Left Ventricular End Diastolic Pressure [place] Multivessel CAD RECOMMENDATIONS Risk factor modification Medical therapy Staged for FFR Cased discussed / reviewed with Dr. Del Toro of Interventional Cardiology DESCRIPTION OF PROCEDURE The patient arrived to the procedure lab. The risks and benefits of the procedure as well as a full d escription of our services here and current unavailability of surgical backup were fully explained to the patient and/or their significant other prior to the catheterization. The Timeout was completed, verifying the correct patient and procedure. The patient's procedural site was prepped and draped in the usual fashion. Local anesthetic was given subcutaneously to right radial region with Lidocaine 2% . Using a modified Seldinger technique, arterial access was obtained via the right radial artery, a 6 Fr sheath was inserted. Simultaneous pressures were then recorded. Right Coronary Artery selective a ngiography was then performed in multiple views using a 5 Fr. 4.0 Gravette catheter. Left Coronary Arter y selective angiography was performed in multiple views using a 5 Fr. AL 1 catheter.The arterial stephens th was pulled and a TR Band was applied for hemostasis w/ 14ml air CORONARY ANGIOGRAPHY DOMINANCE: Right Dominant LEFT HEART ASSESSMENT Left Ventricular Ejection Fraction: Not assessed Elevated Left Ventricular End Diastolic Pressure LVEDP: 19 mmHg LEFT MAIN: distal: smooth: 10 - 25 % Stenosis LEFT ANTERIOR DESCENDING ARTERY: Angiographically normal CIRCUMFLEX ARTERY: PROX CIRC: Mild luminal irregularities RIGHT CORONARY ARTERY: Mild luminal irregularities PROX RCA: smooth: eccentric: 50 % Stenosis DISTAL RCA: diffuse: 10 - 25 % Stenosis GRAFTS: WILKES graft to the Mid LAD is totally occluded (chronic) COMPLICATIONS No Complications PROCEDURE MEDICATIONS Fentanyl 50 mcg IV Versed 1 mg IV Versed 1 mg IV Fentanyl 50 mcg IV Oxygen: 2 L/min via nasal cannula Heparin given IA 08/26/2021 08:53:12 Heparin 7000 unit(s) IV 08/26/2021 09:31:57 Nitro glycerin 25mg / 250ml D5W @ 5 mcg/min discontinued 08/26/2021 08:31:21 Plavix 300 mg PO 08/26/2021 09:27:16 Verapamil 2.5mg, Ntg 100mcgs, 3000 units of Heparin given IA 08/26/2021 08:53:12 SUMMARY OF HEMODYNAMIC DATA Time AIR REST Art 139/74 (99) 08:47:40 ECG 08:49:51 LV 119/2, 22 08:56:10 LV 121/4, 19 08:56:17 LVp 124/-1, 18 08:56:22 AOp 116/71 (92) 08:56:27 AO 119/79 (99) SA 08:56:35 RM AIR REST 09:44:12 Signed By Catalino Antunez MD On 08/26/2021 09:50:39 Catalino Antunez MD
--- NOTE | 2021-08-26 10:20 | CASEMGMT ---
RN YADIRA Face to Face with patient for initial transition planning/care coordination assessment. RN CM introduced self and role at [facility]. Patient lying in bed, sleeping, at bedside. willing to participate in assessment and is able to answer all questions appropriately. Care providers, pharmacy, and demographics verified. states patient to discharge home, denies need for home health at this time. states she has no further needs or concerns at this time. CM to follow for discharge planning needs that may arise. PCP: [facility] Specialists: none Preferred Pharmacy: [facility] Insurance: [employer] Prescription Benefit: yes Living Will/HPOA: none LNOK: Living Arrangements: Patient lives with in a 1st floor apartment with no steps to enter. Patient is independent at home. Transportation: self, daughter DME/HHC: Patient denies DME. No previous HHC. Patient smokes 2 ppd of cigarettes and appox 2 joints of marijuana daily. would like drug abuse resources, SW notified Disposition Plan: Patient to discharge home with family support and follow-up plans in place. Ivana ANN, RN, CM
--- NOTE | 2021-08-26 11:28 | DCINST_ITS ---
Discharge Instructions Diet Discharge Diet: Low fat / Low cholesterol Activity May shower in (days): 1 Dressing / Incision Call your doctor if your incision/area has: Continuous Slow Oozing, Sudden Increased Bleeding, Increased Pain/ Swelling, Increased Redness, Foul Smelling Discharge and Swelling at the incision site Call your doctor if you observe: Shortness of breath, Dizziness, Fainting spells, Swelling in the ankles, Chest pain and Increased palpitations (irregular heartbeat) Remove Dressing in: 1 day Follow Up Care Test Results: Test results from this visit will be discussed in further detail at your follow- up appointment, if applicable. Discharge Plan Admission Admit Date/Time: 08/25/21 15:53 Primary Reason for Your Visit: Chest Pain Attending Provider: Maury Lacy Primary Care Provider: Natalia Xiao Consulting Providers: Catalino Antunez ; Raffy Dugan ; Emil Sparks ; Eyad Segovia ; Jose Herzog ; Anastacio Garsia ; Bernardo Del Toro ; Bakari Garrett ; Ladan Crooks ; Matilde Tucker ; Harry Raphael ; Kody Herndon ; Mynor Sharp [employer]ING [employer]CTOR ; Chandrika Dobbins NP ; Jordyn Dobbs ; Chayito Meza Discharge Orders/Prescriptions Prescriptions: New atorvastatin 80 mg Tablet 80 mg PO QHS 30 Days Qty: 30 2RF isosorbide mononitrate 30 mg Tablet Extended Release 24 Hr 30 mg PO DAILY 30 Days Qty: 30 2RF aspirin 81 mg Tablet,Delayed Release (Dr/Ec) 81 mg PO BREAKFAST 30 Days Qty: 30 2RF nitroglycerin 0.4 mg Tablet, Sublingual 0.4 mg sublingual Q5M PRN (Reason: Cardiac/Chest Pain) Qty: 10 0RF metoprolol tartrate 25 mg Tablet 25 mg PO BID 30 Days Qty: 60 2RF Referrals / Follow Up: Natalia Xiao MD [Primary Care Provider] - Jordyn Dobbs, PA [PHYSICIAN INSPECTOR [employer]] - Within 2 Weeks Disposition Disposition (needs filled in before D/C Order can be placed): Home, Self Care
--- NOTE | 2021-08-26 11:34 | DS.PCM_ITS ---
Documented by User: ROSE Robles 08/26/21 11:46 Providers Date of Admission: 08/25/21 Date of Discharge: 08/26/21 Primary Care Physician: Dr. Natalia Xiao MD Consultations 08/25/21 15:26 Consult: Cardiology Routine Consulting Provider: Radha Gutierrez Reason for Consult: chest pain EMERGENT Consult: No Notified: Yes Date Notified: 08/25/21 Time Notified: 15:26 Method of Notification: Verbal 08/25/21 17:04 Consult: Cardiology Routine Consulting Provider: Catalino Antunez Reason for Consult: Chest Pain EMERGENT Consult: No Notified: Yes Date Notified: 08/25/21 Time Notified: 15:59 Method of Notification: ED Physician Initiated Reason For Visit: UNSTABLE ANGINA Diagnosis Discharge Diagnosis (1) Unstable angina: Status: Acute Code(s): I20.0 - Unstable angina (2) Arteriosclerosis of coronary artery in patient with history of myocardial infarction: Status: Chronic Code(s): I25.10 - Atherosclerotic heart disease of [place] coronary artery without angina pectoris; I25.2 - Old myocardial infarction (3) S/P CABG x 1: Status: Chronic Code(s): Z95.1 - Presence of aortocoronary bypass graft (4) HLD (hyperlipidemia): Status: Chronic Code(s): E78.5 - Hyperlipidemia, unspecified Qualifiers: Hyperlipidemia type: unspecified Qualified Code(s): E78.5 - Hyperlipidemia, unspecified (5) HTN (hypertension): Status: Chronic Code(s): I10 - Essential (primary) hypertension Qualifiers: Hypertension type: essential hypertension Qualified Code(s): I10 - Essential (primary) hypertension (6) Chronic hepatitis C: Status: Chronic Code(s): B18.2 - Chronic viral hepatitis C (7) Smoking addiction: Status: Chronic Code(s): F17.200 - Nicotine dependence, unspecified, uncomplicated Medications at Discharge Home Medications aspirin 81 mg tablet,delayed release 81 mg PO BREAKFAST 30 days #30 tabs 08/26/21 atorvastatin 80 mg tablet 80 mg PO QHS 30 days #30 tabs 08/26/21 isosorbide mononitrate 30 mg tablet,extended release 24 hr 30 mg PO DAILY 30 days #30 tabs 08/26/21 metoprolol tartrate 25 mg tablet 25 mg PO BID 30 days #60 tabs 08/26/21 nitroglycerin 0.4 mg sublingual tablet 0.4 mg sublingual Q5M PRN Cardiac/Chest Pain #10 tabs 08/26/21 sertraline 25 mg tablet 25 mg PO DAILY #30 tabs 08/26/21 Hospital Course Operations None Procedures 2-D Echocardiogram and Cardiac catheterization Summary of Care Provided Minutes Spent on Discharge: 35 Hospital Course: Patient is a 41-year-old male who presented with chest pain. Patient has a history of CABG. Patient is reportedly not compliant with medications at home. Patient follows with Dr. Antunez's office and will need to follow-up following discharge. Patient underwent cardiac catheterization as well as echocardiogram which were normal. Encouraged patient that compliance with medications is the best way to manage his cardiac disease. Physical Exam Const alert, oriented x3 and no apparent distress HEENT normocephalic and head/scalp atraumatic Eyes conjunctivae normal and no scleral icterus Neck no lymphadenopathy and supple General: trachea midline Lymph Lymphatic: no lymphadenopathy noted Resp normal respiratory effort, normal air movement and clear to auscultation bilaterally Cardio regular rate, regular rhythm, S1 normal heart sound, S2 normal heart sound and peripheral pulses 2+ throughout GI normal to inspection, nondistended, normoactive bowel sounds, soft to palpation and non-tender Extremity normal capillary refill and no clubbing, cyanosis or edema Skin skin turgor normal General Skin Exam: no breakdown Lesions: no lesions Neuro no focal motor deficits and no sensory deficits noted Psych affect normal Weight / BMI Weight Weight: 182 lb 4.8 oz Body Mass Index (BMI) 30.3 ABG / Lab / Microbiology Data Result Diagrams: 08/26/21 06:15 08/26/21 06:15 Laboratory: Laboratory Results - last 24 hr 08/25/21 15:07: WBC 8.0, RBC 4.97, Hgb 15.9, Hct 46.1, MCV 92.8, MCH 32.0, MCHC 34.5, RDW Std Deviation 43.2, RDW Coeff of Rose 12.7, Plt Count 201, MPV 10.9, Immature Gran % (Auto) 0.600, Neut % (Auto) 55.7, Lymph % (Auto) 35.5, Lucas % (Auto) 6.5, Eos % (Auto) 1.1, Baso % (Auto) 0.6, Absolute Neuts (auto) 4.4, Absolute Lymphs (auto) 2.84, Nucleated RBC % 0 08/25/21 15:07: Sodium 139, Potassium 3.9, Chloride 107, Carbon Dioxide 25.0, Anion Gap 7, BUN 8, Creatinine 0.72, Estim Creat Clear Calc 119.82, Est GFR (MDRD) Af Amer 157, Est GFR (MDRD) Non-Af 130, BUN/Creatinine Ratio 11.2, Glucose 87, Calcium 9.1, Troponin I High Sens 4 08/25/21 15:07: PT 14.0, INR 1.1, APTT 29.4 08/25/21 17:48: Troponin I High Sens 4 08/25/21 21:30: Troponin I High Sens 5 08/25/21 21:30: APTT 137.5 H* 08/26/21 06:15: WBC 5.8, RBC 4.68, Hgb 15.3, Hct 44.4, MCV 94.9 H, MCH 32.7 H, MCHC 34.5, RDW Std Deviation 45.8 H, RDW Coeff of Rose 13.0, Plt Count 168, MPV 11.2, Immature Gran % (Auto) 0.700, Neut % (Auto) 50.5, Lymph % (Auto) 36.8, Lucas % (Auto) 8.4, Eos % (Auto) 2.7, Baso % (Auto) 0.9, Absolute Neuts (auto) 3.0, Absolute Lymphs (auto) 2.15, Nucleated RBC % 0 08/26/21 06:15: Sodium 138, Potassium 4.0, Chloride 109 H, Carbon Dioxide 26.0, Anion Gap 3 L, BUN 10, Creatinine 0.68 L, Estim Creat Clear Calc 126.87, Est GFR (MDRD) Af Amer 167, Est GFR (MDRD) Non-Af 138, BUN/Creatinine Ratio 14.8, Glucose 125 H, Calcium 8.6, Phosphorus 2.7, Magnesium 2.1, Total Bilirubin 0.70, AST 413 H, ALT 503 H, Alkaline Phosphatase 85, Total Protein 6.3 L, Albumin 3.0 L, Globulin 3.3, Albumin/Globulin Ratio 0.9, Triglycerides 221 H, Cholesterol 12 6, LDL Cholesterol 55, VLDL Cholesterol 44 H, HDL Cholesterol 27 L D/C Instructions Discharge Diet: Low fat / Low cholesterol May shower in (days): 1 Call your doctor if your incision/area has: Continuous Slow Oozing, Sudden Increased Bleeding, Increased Pain/ Swelling, Increased Redness, Foul Smelling Discharge and Swelling at the incision site Call your doctor if you observe: Shortness of breath, Dizziness, Fainting spells, Swelling in the ankles, Chest pain and Increased palpitations (irregular heartbeat) Meaningful Use Info Meaningful Use Diagnoses (Choose all that apply): None applicable Discharge Plan Admission Admit Date/Time: 08/25/21 15:53 Primary Reason for Your Visit: Chest Pain Attending Provider: Maury Lacy Primary Care Provider: Natalia Xiao Consulting Providers: Catalino Antunez ; Raffy Dugan ; Emil Sparks ; Eyad Segovia ; Jose Herzog ; Anastacio Garsia ; Bernardo Del Toro ; Bakari Garrett ; Ladan Crooks ; Matilde Tucker ; Harry Raphael ; Kody Herndon ; Mynor Sharp [employer] ; Chandrika Dobbins NP ; Jordyn Dobbs ; Chayito Meza Discharge Orders/Prescriptions Prescriptions: New atorvastatin 80 mg Tablet 80 mg PO QHS 30 Days Qty: 30 2RF isosorbide mononitrate 30 mg Tablet Extended Release 24 Hr 30 mg PO DAILY 30 Days Qty: 30 2RF aspirin 81 mg Tablet,Delayed Release (Dr/Ec) 81 mg PO BREAKFAST 30 Days Qty: 30 2RF nitroglycerin 0.4 mg Tablet, Sublingual 0.4 mg sublingual Q5M PRN (Reason: Cardiac/Chest Pain) Qty: 10 0RF metoprolol tartrate 25 mg Tablet 25 mg PO BID 30 Days Qty: 60 2RF sertraline 25 mg tablet 25 mg PO DAILY Qty: 30 2RF Referrals / Follow Up: Natalia Xiao MD [Primary Care Provider] - Jordyn Dobbs, PA [PHYSICIAN TITLE INSURANCE SALES REPRESENTATIVE] - Within 2 Weeks Disposition Disposition (needs filled in before D/C Order can be placed): Home, Self Care Documented by User: Dr. Maury Lacy MD 08/26/21 11:52 Providers Date of Admission: 08/25/21 Reason For Visit: UNSTABLE ANGINA Diagnosis Discharge Diagnosis (1) Unstable angina: Status: Acute Code(s): I20.0 - Unstable angina (2) Arteriosclerosis of coronary artery in patient with history of myocardial infarction: Status: Chronic Code(s): I25.10 - Atherosclerotic heart disease of [place] coronary artery without angina pectoris; I25.2 - Old myocardial infarction (3) S/P CABG x 1: Status: Chronic Code(s): Z95.1 - Presence of aortocoronary bypass graft (4) HLD (hyperlipidemia): Status: Chronic Code(s): E78.5 - Hyperlipidemia, unspecified Qualifiers: Hyperlipidemia type: unspecified Qualified Code(s): E78.5 - Hyperlipidemia, unspecified (5) HTN (hypertension): Status: Chronic Code(s): I10 - Essential (primary) hypertension Qualifiers: Hypertension type: essential hypertension Qualified Code(s): I10 - Essential (primary) hypertension (6) Chronic hepatitis C: Status: Chronic Code(s): B18.2 - Chronic viral hepatitis C (7) Smoking addiction: Status: Chronic Code(s): F17.200 - Nicotine dependence, unspecified, uncomplicated Medications at Discharge Home Medications aspirin 81 mg tablet,delayed release 81 mg PO BREAKFAST 30 days #30 tabs 08/26/21 atorvastatin 80 mg tablet 80 mg PO QHS 30 days #30 tabs 08/26/21 isosorbide mononitrate 30 mg tablet,extended release 24 hr 30 mg PO DAILY 30 days #30 tabs 08/26/21 metoprolol tartrate 25 mg tablet 25 mg PO BID 30 days #60 tabs 08/26/21 nitroglycerin 0.4 mg sublingual tablet 0.4 mg sublingual Q5M PRN Cardiac/Chest Pain #10 tabs 08/26/21 sertraline 25 mg tablet 25 mg PO DAILY #30 tabs 08/26/21 ABG / Lab / Microbiology Data Result Diagrams: 08/26/21 06:15 08/26/21 06:15 Discharge Plan Admission Admit Date/Time: 08/25/21 15:53 Primary Reason for Your Visit: Chest Pain Attending Provider: Maury Lacy Primary Care Provider: Natalia Xiao Consulting Providers: Catalino Antunez ; Raffy Dugan ; Emil Sparks ; Eyad Segovia ; Jose Herzog ; Anastacio Garsia ; Bernardo Del Toro ; Bakari Garrett ; Arianne Crookshaidenita ; Matilde Tucker ; Harry Raphael ; Kody Herndon ; Mynor Sharp [employer] ; Chandrika Dobbins NP ; Jordyn Dobbs ; Chayito Meza Discharge Orders/Prescriptions Prescriptions: New atorvastatin 80 mg Tablet 80 mg PO QHS 30 Days Qty: 30 2RF isosorbide mononitrate 30 mg Tablet Extended Release 24 Hr 30 mg PO DAILY 30 Days Qty: 30 2RF aspirin 81 mg Tablet,Delayed Release (Dr/Ec) 81 mg PO BREAKFAST 30 Days Qty: 30 2RF nitroglycerin 0.4 mg Tablet, Sublingual 0.4 mg sublingual Q5M PRN (Reason: Cardiac/Chest Pain) Qty: 10 0RF metoprolol tartrate 25 mg Tablet 25 mg PO BID 30 Days Qty: 60 2RF sertraline 25 mg tablet 25 mg PO DAILY Qty: 30 2RF Referrals / Follow Up: Natalia Xiao MD [Primary Care Provider] - Jordyn Dobbs PA [PHYSICIAN TITLE INSURANCE SALES REPRESENTATIVE] - Within 2 Weeks Disposition Disposition (needs filled in before D/C Order can be placed): Home, Self Care Charges/Coding Addendum Addendum: Addendum: Dr. Lacy I personally examined the patient and reviewed the chart. I agree with the above. 41-year-old male has an extensive cardiac history some of which is due to noncompliance presents to the hospital with continued chest pain. He was seen in the ER several days ago and had a CT of the chest which was unremarkable and was instructed to follow-up with his director stars who at which point asked him to come to the hospital to be evaluated. His troponins were unremarkable and he had an echo which demonstrated normal function, EF was 55%, RVSP was 20 mmHg. He did have an echocardiogram which did not show any acute lesion at this time that could be intervened on. I did have a discussion with the patient's who is frustrated with her 's lack of attention to his physical health. 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 I discussed with her that without his effort and his own health care there is not much I can do other than recommend certain medications. We will just charge him to a aspirin as well as Lipitor, metoprolol, and isosorbide mononitrate. We will also place him on a low-dose Zoloft that can be titrated up by his PCP to help with any depression and anxiety symptoms that could be a barrier to him taking his medications. Clinical time spent in all aspects of patient care including discharge planning was 45 minutes with more than half that time being spent by myself. His situation improved faster than anticipated. Visit Charges Inpatient E&M: [id number] Disch Hosp
--- NOTE | 2021-08-26 12:20 | PCI.CARDCATH ---
PCI Cardiac Cath Report PCI Report: 1. IFR of proximal eccentric RCA normal (.[phone]). 2. Placement of TR band to right radial artery arteriotomy site Consent; Risk and benefit of procedure explained detail to the patient elected to proceed informed consent obtained. Preprocedure diagnosis; 41-year-old patient with known history of CAD prior coronary artery bypass surgery with WILKES to LAD Presented with symptoms of chest pain and seen and evaluated by his primary assembler surgical garment Dr. Harmony Garcia he underwent today cardiac catheterization Angiographic findings reviewed. Left main distal has nonobstructive atherosclerosis of 10-20% Left anterior descending artery angiographically had no significant atherosclerosis The left circumflex proximally had mild luminal irregularity Right coronary artery large dominant proximally had mild luminal irregularity and also there is segmental 50?percent stenosis eccentric plaque. WILKES graft to the mid LAD is totally occluded/chronic Based on the clinical presentation and patient had ongoing angina using nitroglycerin we reviewed the angiographic films and decide to proceed for evaluation of the proximal eccentric RCA lesion with IFR/physiological evaluation. Interventional equipment used; 1. 6 [place] JL 4 guide catheter 2. IFR wire/Radiant Medication used in the [employer] 1. Heparin total of 7000 units in addition to 3000 units which was given through the right radial artery sheath 2. Loaded with Plavix 300 mg in addition to aspirin Procedure in detail; Under fluoroscopic guidance we will proceed with 6 [place] JR4 guide Advanced ascending aorta cannulated the right coronary ostium without difficulty Following this we will proceed with IV IFR wire which normalized proximally then followed by crossing the eccentric RCA lesion and the distal part of the wire was placed in the distal RCA And then we measured the IFR x3 All measures revealed normal IFR ( 0.92?0.96) Following this IFR wire removed angiographic view obtained patient remained stable no symptoms of chest pain and stable hemodynamically The monitors showed no evidence of ST-T change Conclusion patient had nonobstructive proximal RCA eccentric lesion of around 50% which was evaluated physiologically by IFR within normal Recommendations; 1. To continue medical treatment 2. Patient to follow-up with his primary assembler surgical garment Dr. Antunez for continuation of cardiac care Bernardo Del Toro MD,[facility]
--- NOTE | 2021-08-26 12:30 | EKG12_ITS ---
Test Reason : cp Blood Pressure : / mmHG Vent. Rate : 071 BPM Atrial Rate : 071 BPM P-R Int : 136 ms QRS Dur : 072 ms QT Int : 394 ms P-R-T Axes : 060 057 062 degrees QTc Int : 428 ms Sinus rhythm with Premature atrial complexes Otherwise normal ECG No previous ECGs available Confirmed by OMAR CASAS, CHERRI ([id number]), video editor JANAY CRUZ ([id number]) on 08/31/2021 12:54:29 PM Referred By: Derrick Confirmed By:CHERRI NELSON MD
== END 2021-08-26 12:48 | disposition home or self-care (01) | DRG 191 ==
LOC: ED 15:14 → PCU 16:30
PROVIDERS: Admitting Provider Internal Medicine; Emergency Provider Student in an Organized Health Care Education/Training Program; PCP Internal Medicine; Visit Provider Family Medicine
DX: I25.110 Atherosclerotic heart disease of native coronary artery with unstable angina pectoris (principal); B18.2 Chronic viral hepatitis C; J44.9 Chronic obstructive pulmonary disease, unspecified; E78.5 Hyperlipidemia, unspecified; I10 Essential (primary) hypertension; F41.9 Anxiety disorder, unspecified; I25.2 Old myocardial infarction; F17.210 Nicotine dependence, cigarettes, uncomplicated; F32.A Depression, unspecified; E66.9 Obesity, unspecified; Z68.30 Body mass index [BMI] 30.0-30.9, adult; Z91.14 Patient's other noncompliance with medication regimen; Z95.1 Presence of aortocoronary bypass graft; Z79.82 Long term (current) use of aspirin; Z79.899 Other long term (current) drug therapy; Z82.49 Family history of ischemic heart disease and other diseases of the circulatory system
CPT/HCPCS: 36415; 71045; 71275; 80048; 80053; 80061; 83735; 84100; 84484; 85025; 85379; 85610; 85730; 93005; 93306; 93454; 93571; 94762; 96361; 96374; 96375; 99152; 99153; 99284; J7030; Q9967; A4216; C1769; C1884; C1887; C1894; J2405

== ENCOUNTER 2022-07-29 04:03 | Emergency (ER) | payer MEDICAID, SELFPAY ==
[2022-07-29 04:05] VITALS: BP 115/97; BP 136/94; BP 159/65; PULSE 103; PULSE 150; PULSE 94; RESP 12; O2SAT 87; O2SAT 92; O2SAT 99
[2022-07-29 04:21] VITALS: TEMP 35.6
--- NOTE | 2022-07-29 04:25 | EDS_ITS ---
HPI History of Present Illness Chief Complaint: CPR Detail of Chief Complaint: Chest pain at home. Informant: spouse/S.O. and EMS Onset/Context/Timing Onset: Today and Hours Context: Sudden Onset Timing: Continuous Current Severity: Severe Maximum Severity: Severe Narrative Narrative: 42-year-old male history of single-vessel CABG and prior PA. Had chest pain both yesterday and this morning for which she took 2 nitro. After the second nitro this morning at home he had a syncopal episode. Squad was called and have been performing CPR on the patient for about 41 minutes prior to arrival. He has received 5 doses of epinephrine with brief periods of pulses but then would quickly resolve until the next round of epinephrine. Patient himself is unresponsive. is present at bedside. Prior similar symptoms: Yes Recent Illness/Hospitalization: No PFSH PFSH Medical History Arteriosclerosis of coronary artery in patient with history of myocardial infarction Atherosclerotic heart disease of [place] coronary artery without angina pectoris Bipolar disorder Chest pain Chronic hepatitis C COPD (chronic obstructive pulmonary disease) Coronary artery disease Dyspnea on exertion Essential hypertension Hepatitis History of non-ST elevation myocardial infarction (NSTEMI) History of ST elevation myocardial infarction (STEMI) (02/03/08) HLD (hyperlipidemia) HTN (hypertension) Myocardial infarct Smoker Smoking addiction Home Medications aspirin 81 mg tablet,delayed release 81 mg PO BREAKFAST 30 days #30 tabs 08/26/21 [Rx Last Taken Unknown] atorvastatin 80 mg tablet 80 mg PO QHS 30 days #30 tabs 08/26/21 [Rx Last Taken Unknown] isosorbide mononitrate 30 mg tablet,extended release 24 hr 30 mg PO DAILY 30 days #30 tabs 08/26/21 [Rx Last Taken Unknown] metoprolol tartrate 25 mg tablet 25 mg PO BID 30 days #60 tabs 08/26/21 [Rx Last Taken Unknown] nitroglycerin 0.4 mg sublingual tablet 0.4 mg sublingual Q5M PRN Cardiac/Chest Pain #10 tabs 08/26/21 [Rx Last Taken Unknown] sertraline 25 mg tablet 25 mg PO DAILY #30 tabs 08/26/21 [Rx Last Taken Unknown] Allergy/AdvReac Type Severity Reaction Status Date / Time No Known Allergies Allergy Verified 08/25/21 14:48 Family History Father CAD (coronary artery disease) Hypertension Hyperlipidemia COPD (chronic obstructive pulmonary disease) Sudden cardiac Stented coronary artery S/P CABG x 3 Surgical History History of coronary artery bypass surgery (~02/03/08) History of left heart catheterization (08/26/21) Social History household members: significant other 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 Review of Systems ROS Unobtainable: due to endotracheal tube EXAM Physical Exam Narrative Exam Narrative: 42-year-old male brought in by Normal. Currently undergoing CPR by automatic compression device. He has not airway in place. H EENT exam pupils are 2 to 3 mm nonreactive. Neck is unremarkable. No JVD. Lungs breath sounds are heard with bagging. Is no audible cardiac tones. Abdomen is soft and nondistended. Arms and legs are no palpable pulses. They are cool to the touch. Neurologically he is completely unresponsive to both verbal and noxious stimuli. Const Positive well nourished and well developed; Negative for cachectic or contractures Constitutional Narrative: Currently receiving CPR by an automatic device. General Appearance ED: well developed; Negative for cachectic, contractures or NAD Nutritional Appearance: Negative for cachectic HEENT normocephalic and atraumatic; Negative for trauma Eyes Negative for PERRL or EOMs intact bilaterally Eyes Narrative: Pupils are 2 to 3 mm and nonreactive. General Eye ED: Negative for pale conjunctiva or scleral icterus Neck No full ROM, no lymphadenopathy and no JVD Cardio Cardio Narrative: Pulseless electrical activity. GI non-tender, non-distended and no masses Inspection: Negative for abdominal distention Palpation: soft; Negative for tender or guarding Neuro Neuro Narrative: Unresponsive to noxious or verbal stimuli. Unconscious. MDM MDM MDM Narrative Medical decision making narrative: 42-year-old male history of PA and prior single-vessel CABG. Has had chest pain for the last 2 days. He took 2 sublingual nitro today and then had a syncopal event. [facility] was called and been working on the patient for 41 minutes prior to arrival. He had received a total of 5 doses of IO epinephrine prior to arrival. We continued CPR. Patient received 4 more dosages of epinephrine in the emergency department. After circulating it for 3 minutes he had no spontaneous pulses. With the automatic compression device he did have pulses. Patient had 1 episode of a wide-complex tachycardia at 180. That was cardioverted with 1 shock at 200 J. After the total of 9 doses of epinephrine between the paramedics and emergency department efforts were determined to be futile. Patient went from PEA to asystole and was pronounced. The patient was pronounced at 4:20 AM. His and family were present in the room at the time. History & Record Review Discussion w/independent historian: EMS personnel and Family Additional record(s) reviewed:: Prior inpatient record, Prior outpatient record, Prior ED visit and Prior labs Discharge Plan Triage Chief Complaint: CPR ED Provider: Mark Morales Dx/Rx/DC Orders Clinical Impression: Chest pain, Hx of CABG, Cardiopulmonary arrest, PEA (Pulseless electrical activity), V tach, Asystole, Patient pronounced , History of PA (myocardial infarction) Prescriptions: No Action atorvastatin 80 mg Tablet 80 mg PO QHS 30 Days Qty: 30 2RF isosorbide mononitrate 30 mg Tablet Extended Release 24 Hr 30 mg PO DAILY 30 Days Qty: 30 2RF aspirin 81 mg Tablet,Delayed Release (Dr/Ec) 81 mg PO BREAKFAST 30 Days Qty: 30 2RF nitroglycerin 0.4 mg Tablet, Sublingual 0.4 mg sublingual Q5M PRN (Reason: Cardiac/Chest Pain) Qty: 10 0RF metoprolol tartrate 25 mg Tablet 25 mg PO BID 30 Days Qty: 60 2RF sertraline 25 mg tablet 25 mg PO DAILY Qty: 30 2RF Primary Care Provider: Natalia Xiao Referrals: Natalia Xiao MD [Primary Care Provider] - Disposition Disposition:
== END 2022-07-29 07:33 ==
PROVIDERS: Emergency Provider Emergency Medicine; PCP Internal Medicine; Visit Provider Emergency Medicine
DX: I46.9 Cardiac arrest, cause unspecified (principal); I47.29 Other ventricular tachycardia; R07.9 Chest pain, unspecified; I25.10 Atherosclerotic heart disease of native coronary artery without angina pectoris; F12.90 Cannabis use, unspecified, uncomplicated; F17.210 Nicotine dependence, cigarettes, uncomplicated; I25.2 Old myocardial infarction; Z95.1 Presence of aortocoronary bypass graft
CPT/HCPCS: 99282